=== PATIENT | female | born 1950 | race Caucasian/White ===

== ENCOUNTER 2023-11-09 09:57 | Observation (INO) ==
[2023-11-09] MEDS: SODIUM CHLORIDE 0.9% 500 ML IV ONE (10:22)
[2023-11-09] MEDS: ALBUT/IPRATROP 3MG/0.5MG NEB 3 ML VIAL NEB STA (10:30)
--- NOTE | 2023-11-09 10:30 | XRay Report ---
XR chest 1V portable CLINICAL HISTORY: dizzy, cough, vomiting TECHNIQUE: Single frontal radiograph of the chest was obtained. Comparison: None available at the time of this dictation. FINDINGS: No lines and tubes are seen. Calcified aortic knob is seen. The lungs are clear. No evidence of pleur al effusion or pneumothorax. IMPRESSION: No acute abnormalities and in particular no radiographic evidence of pneumonia. ACT 112: Negative or not required by law. Electronically signed by: Magan Doan M.D. 11/09/2023 10:29 AM
[2023-11-09] MEDS: MECLIZINE HCL 25 MG TAB PO STA (10:47)
--- NOTE | 2023-11-09 10:50 | Emergency Department Note ---
Impression & Plan Dizziness, Orthostatic hypotension, Nausea, Weakness ED Provider Note Provider: Hernan Phoenix MD DATE OF SERVICE: 11/09/2023 CHIEF COMPLAINT: Dizzy, nauseous, cough HISTORY OF PRESENT ILLNESS: Patient is a 73-year-old female history of diabetes, GERD, and COPD not on home oxygen presenting here today stating around 9 AM began to experience significant dizziness and nausea and dry heaves. Denies headache. Denies falling. Was just folding clothing and did not do any position changes or bend over. Denies significant chest pain. Some cough minimally productive. History of COPD. No new numbness or tingling reported with some chronic numbness in her arms related. Denies abdominal pain. Was well earlier today and yesterday. EMS did place her on a little bit oxygen for comfort and give her Zofran prior to arrival with minimal improvement. PAST MEDICAL HISTORY: As noted above MEDICATIONS: Reviewed home medications SOCIAL HISTORY: Smoker PHYSICAL EXAM: GENERAL: alert and oriented in no acute distress on stretcher Head: normocephalic and atraumatic EYES: No injection, discharge or icterus. EOMI. NECK: Trachea midline. ENT: Mucous membranes pink and moist. LUNGS: Airway patent. No retractions. Breath sounds clear with good air entry bilaterally. HEART: Regular rate and rhythm. No chest wall tenderness ABDOMEN: Soft and non-tender, without guarding or rebound. SKIN: Acyanotic, warm, dry, without rashes EXTREMITIES: Without swelling, tenderness or deformity NEUROLOGICAL: No focal deficits. No aphasia. No facial droop or slurred speech. Normal strength and tone in the extremities. Sensation to gross touch normal. Ambulatory. EK bpm sinus rhythm first-degree AV block. No PVC or PAC. No acute ST segment elevation or depression with a QTc of 426. CONTINUOUS CARDIAC MONITORING: was ordered and showed a heart rate of 60s to 80s bpm in sinus rhythm first-degree heart block Patient's laboratory studies and imaging reviewed. Differential includes Infection, gastrointestinal, dehydration, metabolic abnormality, hypo/hyperglycemia, electrolyte disturbance, anemia, hypoxia, cardiac sources, intracerebral event, toxicologic, neurologic, as well as other pathologies. IMPRESSION/MEDICAL DECISION MAKING: Patient with significant dizziness and nausea but no abdominal pain or significant headache. Cough. No new numbness or tingling. Not hypoxic here is a smoker. Denies any chest pain. EKG and troponin completed here. Chest x-ray without evidence of pneumonia or pneumothorax/pulmonary edema per radiology. Blood work without leukocytosis. Minimal anemia. No severe electrolyte abnormalities or signs of renal dysfunction. No hepatitis noted. Troponin normal. CT of the head without acute findings have a history of a tumor resection her right cheek seems consistent with the incidental note here from radiology. Abdominal CT without acute findings beyond some stenosis of the aorta and its branches but no occlusion. Made the patient aware. Patient quite unsteady and becomes orthostatic ambulating to the bathroom here. Did receive some IV fluid but no acute avoid fluid overload. Did take Antivert here without much improvement. Seems likely more peripheral and while the respiratory viral panel is negative question if this is viral mediated still. Will bring into the hospital given her significant symptoms and comorbidities with the orthostasis. Hospitalist team contacted. DIAGNOSIS: Dizziness, orthostatic hypotension, nausea DISPOSITION: Hospitalist will evaluate Patient was agreeable with this plan. Past Med/Surg History Medical History (Updated 11/09/23 @ 17:48 by Hernan Phoenix M.D.) Osteoarthritis Kidney stones Neuropathy mild Cardiac murmur has had Echo's in past > no issues Smoker Chronic obstructive pulmonary disease well controlled per pt > flare up in November 2021, but resolved, no issues since Sleep apnea cpap Hypertension Hyperlipidemia Anxiety GERD (gastroesophageal reflux disease) Diabetes Surgical History Hx of right cataract extraction History of total knee replacement right History of lithotripsy History of esophagogastroduodenoscopy (EGD) History of colonoscopy History of appendectomy History of tooth extraction also has loose front tooth Rhabdomyoma right cheek, 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 Family History Other No pertinent family history Social History (Updated 11/09/23 @ 15:10 by Noris Cantu PA-C) Smoking Status: Current every day smoker Tobacco Type: Cigarettes Cigarettes Per Day: 1/4 ppd; Second Hand Exposure: No; Do You Dip or Chew Tobacco: No; Hx Alcohol Use: No Hx Substance Use: No Preferred Language: Yakut Communication Ability: Effective Home Economics Expert Required: No Beliefs That Will Affect Care: None Current Living Situation: Parent and Family current occupational status: retired 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 Feels Safe at Home: Yes Assistive Devices: CPAP and Glasses Allergies Allergies Allergy/AdvReac Type Severity Reaction Status Date / Time Ibduuks-WAI-EtP Reductase AdvReac Unknown leg cramps Verified 04/08/22 08:32 Inhibitor [Fehdzre-Gcj-Cxs Reductase Inhibitor] Home Meds Home Medications Medication Instructions Recorded Confirmed alprazolam 0.25 mg tablet 0.25 mg PO TID PRN Anxiety 03/12/22 11/09/23 aspirin 81 mg tablet,delayed 81 mg PO HS 03/12/22 11/09/23 release atorvastatin 20 mg tablet 20 mg PO MOWEFR 03/12/22 11/09/23 ipratropium 0.5 mg-albuterol 3 mg 3 ml inhalation Q4H PRN Wheezing 03/12/22 11/09/23 (2.5 mg base)/3 mL nebulization soln lisinopril 10 1 tab PO HS 03/12/22 11/09/23 mg-hydrochlorothiazide 12.5 mg tablet pantoprazole 20 mg tablet,delayed 20 mg PO HS 03/12/22 11/09/23 release tramadol 50 mg tablet 50 mg PO Q6H PRN Pain 03/12/22 11/09/23 empagliflozin 10 mg tablet 10 mg PO DAILY 11/09/23 11/09/23 (Jardiance) tiotropium bromide 18 mcg capsule 18 mcg inhalation DAILY 11/09/23 11/09/23 with inhalation device Results & Data (ED) Vital Signs Vital Signs - 24 hr 11/09/23 10:04 11/09/23 10:05 11/09/23 10:20 Temperature 36.4 C L Temperature Source Oral Pulse Rate 68 66 65 Pulse Rate [Left Finger] Pulse Rhythm Regular Respiratory Rate 20 22 Respiratory Effort / Characteristics Non-Labored Spontaneous Respiratory Depth Normal Blood Pressure 118/49 L Blood Pressure [Left Arm] Blood Pressure Mean 72 Blood Pressure Mean [Left Arm] Blood Pressure Position Sitting Blood Pressure Position [Left Arm] Pulse Oximetry 94 95 Oxygen Delivery Method Room Air Room Air Sepsis Recent Fever Within 48 Hours No Sepsis New/Unexplained Change in Mental Status No Sepsis Action Taken by Nursing No Action Required 11/09/23 11:40 11/09/23 11:44 11/09/23 11:44 Temperature Temperature Source Pulse Rate Pulse Rate [Left Finger] 80 Pulse Rhythm Respiratory Rate 20 Respiratory Effort / Characteristics Respiratory Depth Blood Pressure Blood Pressure [Left Arm] 68/42 L 80/50 L 107/63 Blood Pressure Mean Blood Pressure Mean [Left Arm] 50 60 77 Blood Pressure Position Blood Pressure Position [Left Arm] Standing Sitting Lying Pulse Oximetry 95 Oxygen Delivery Method Room Air Sepsis Recent Fever Within 48 Hours Sepsis New/Unexplained Change in Mental Status Sepsis Action Taken by Nursing 11/09/23 12:00 11/09/23 12:48 Temperature Temperature Source Pulse Rate 77 Pulse Rate [Left Finger] 83 Pulse Rhythm Respiratory Rate 15 20 Respiratory Effort / Characteristics Respiratory Depth Blood Pressure 92/35 L Blood Pressure [Left Arm] 123/43 L Blood Pressure Mean 54 Blood Pressure Mean [Left Arm] 69 Blood Pressure Position Blood Pressure Position [Left Arm] Lying Pulse Oximetry 93 96 Oxygen Delivery Method Sepsis Recent Fever Within 48 Hours Sepsis New/Unexplained Change in Mental Status Sepsis Action Taken by Nursing Laboratory Data 11/09/23 10:14 11/09/23 10:14 Lab Results 11/09/23 11/09/23 11/09/23 Range/Units 10:14 10:30 11:45 WBC 10.43 (4.8-10.8) K/ul RBC 3.97 L (4.20-5.40) M/uL Hgb 11.9 L (12.0-16.0) g/dl Hct 37.8 (37.0-47.0) % MCV 95.2 (80.0-100.0) fL MCH 30.0 (25.0-34.0) pg MCHC 31.5 L (32.0-36.0) g/dL RDW Std Deviation 49.4 H (36.4-46.3) fL RDW Coeff of Trevor 14.0 (11.5-14.5) % Plt Count 307 (130-400) K/uL MPV 9.0 L (9.4-12.4) fL Immature Gran % (Auto) 0.9 % Neut % (Auto) 63.2 % Lymph % (Auto) 26.1 % [place] % (Auto) 5.8 % Eos % (Auto) 3.4 % Baso % (Auto) 0.6 % Neut # (Auto) 6.60 H (1.40-6.50) K/uL Lymph # (Auto) 2.72 (1.20-3.40) K/uL [place] # (Auto) 0.61 H (0.11-0.59) K/uL Eos # (Auto) 0.35 (0.00-0.50) K/uL Baso # (Auto) 0.06 (0.00-0.20) K/uL Immature Gran # (Auto) 0.09 (0.01-0.20) K/uL Sodium 135 L (136-145) mmol/L Potassium 4.5 (3.5-5.1) mmol/L Chloride 106 (98-107) mmol/L Carbon Dioxide 23 (21-32) mmol/L Anion Gap 6 (3-11) BUN 38 H (6-23) mg/dl Creatinine 1.11 (0.6-1.2) mg/dl Est Cr Clr Drug Dosing 57.3 ml/min Est GFR ( Amer) 56.3 ml/min Est GFR (Non-Af Amer) 48.5 ml/min BUN/Creatinine Ratio 34.2 H (10-20) Glucose 162 H (70-99(Fasting)) mg/dl Calcium 9.3 (8.6-10.3) mg/dl Magnesium 2.3 (1.7-2.4) mg/dl Total Bilirubin 0.3 (0.2-1.0) mg/dl AST 12 L (13-39) U/L ALT 12 (7-52) U/L Alkaline Phosphatase 78 (34-104) U/L Troponin I High Sens 4.1 (0-14) pg/ml Total Protein 6.5 (6.0-8.3) gm/dl Albumin 3.6 (3.4-5.0) gm/dl Globulin 2.9 (2.5-4.0) gm/dl Albumin/Globulin Ratio 1.2 (0.9-2) TSH 1.955 (0.300-4.500) uIu/ml Urine Color Yellow Urine Appearance Clear (Clear) Urine pH 5.0 (4.5-7.5) Ur Specific Ceres 1.017 (1.000-1.030) Urine Protein Negative (Negative) Urine Glucose (UA) 2+ H (Negative) Urine Ketones Negative (Negative) Urine Blood Negative (Negative) Urine Nitrite Negative (Negative) Urine Bilirubin Negative (Negative) Urine Urobilinogen Negative (Negative) Ur Leukocyte Esterase Negative (Negative) Adenovirus (PCR) Not Detected (NotDetected) B. pertussis DNA (PCR) Not Detected (NotDetected) B.parapertussis DNA PCR Not Detected (NotDetected) C. pneumoniae DNA (PCR) Not Detected (NotDetected) Coronavirus OC43 (PCR) Not Detected (NotDetected) Coronavirus HKU1 (PCR) Not Detected (NotDetected) Coronavirus 229E (PCR) Not Detected (NotDetected) SARS-CoV-2 (PCR) Not Detected (NotDetected) Coronavirus NL63 (PCR) Not Detected (NotDetected) Human Metapneumovir PCR Not Detected (NotDetected) Influenza Type A (PCR) Not Detected (NotDetected) Influenza Type B (PCR) Not Detected (NotDetected) M. pneumoniae (PCR) Not Detected (NotDetected) Parainfluenza 1 (PCR) Not Detected (NotDetected) Parainfluenza 2 (PCR) Not Detected (NotDetected) Parainfluenza 3 (PCR) Not Detected (NotDetected) Parainfluenza 4 (PCR) Not Detected (NotDetected) RSV (PCR) Not Detected (NotDetected) Entero/Rhino (PCR) Not Detected (NotDetected) Administered Medications Discontinued Medications Albuterol (Albut/Ipratrop 3mg/0.5mg Neb 3 Ml Vial) 3 ml NEB NOW STA; Protocol Stop: 11/09/23 10:09 Last Admin: 11/09/23 10:30 Dose: 3 ml Documented By: MONICA Sodium Chloride (Nss) 500 mls @ 999 mls/hr IV .Q31M ONE Stop: 11/09/23 10:38 Last Infusion: 11/09/23 12:24 Dose: Infused Documented By: Admin: 11/09/23 10:22 Dose: 999 mls/hr Documented By: MONICA Ioversol (Optiray 320 500ml) 81 ml IV ONCE ONE Stop: 11/09/23 11:31 Last Admin: 11/09/23 11:24 Dose: 81 ml Documented By: FIDELINA Meclizine HCl (Meclizine Hcl 25 Mg Tab) 25 mg PO NOW STA Stop: 11/09/23 10:09 Last Admin: 11/09/23 10:47 Dose: 25 mg Documented By: MONICA Imaging Data Radiologist's Impression: Abdomen/Pelvis CT 11/09/23 10:[address] WITH IV CONTRAST CT DOSE: 2179.21 mGy.cm HISTORY: Acute generalized abdominal pain with nausea and vomiting dizzy, cough, vomiting TECHNIQUE: Multiaxial CT images of the abdomen and pelvis were performed following the IV administration of Optiray, A dose lowering technique was utilized adhering to the principles of ALARA. COMPARISON STUDY: 04/19/2016 FINDINGS: Cardiomegaly with extensive coronary artery calcifications. Bibasilar mucous plugging with atelectasis versus scarring. Small right Bochdalek hernia. There is no free air. Unremarkable spleen, pancreas, gallbladder and adrenal glands. Unremarkable liver. Patency of the hepatic and portal veins. Mild nonspecific bilateral perinephric stranding. Subcentimeter hypodensities of the kidneys are too small to characterize, likely cysts. 2.5 cm cyst of the inferior pole left kidney. 6 mm calcification of the superior pole left kidney in image 129. 3 mm nonobstructing calculus at the interpolar right kidney. No ureteral calculi or hydronephrosis. Unremarkable urinary bladder, uterus and adnexa. Severe atherosclerosis of the aorta with high-grade stenosis at the origin of the celiac trunk and proximal superior mesenteric artery. There is a least moderate stenosis at the origin of the inferior mesenteric and renal arteries. Infrarenal abdominal aortic ectasia measures up to 3.2 x 2.8 cm. There is high-grade stenosis within the distal abdominal aorta just proximal to the iliac bifurcation. Fusiform dilation of the left common iliac artery, 2.5 cm. There is no lymphadenopathy identified. Subcentimeter duodenal diverticulum. Colonic diverticulosis. Mural fibrofatty changes of the right hemicolon. Appendectomy. No ascites or mesenteric inflammation. Unremarkable soft tissues. There is no acute fracture. Degenerative changes of the spine, pelvis and hips. IMPRESSION: 1. No bowel obstruction or bowel wall thickening. 2. Bibasilar mucous plugging with opacities favoring atelectasis or scarring. 3. Nonobstructing renal calculi. No ureteral calculi or hydronephrosis. 4. Severe atherosclerosis with fusiform aneurysmal dilation of the infrarenal abdominal aorta measuring up to 3.2 cm. Dilation of the left common iliac artery measures 2.5 cm. 5. High-grade stenosis of the distal abdominal aorta just proximal to the bifurcation with additional high-grade stenosis at the origins of the celiac trunk and superior mesenteric artery. 6. Additional findings as above. ACT 112: Negative or not required by law. The above report was generated using voice recognition software. It may contain grammatical, syntax or spelling errors. Electronically signed by: Romero Gonzalez M.D. 11/09/2023 12:00 PM Chest X-Ray 11/09/23 10:08 XR chest 1V portable CLINICAL HISTORY: dizzy, cough, vomiting TECHNIQUE: Single frontal radiograph of the chest was obtained. Comparison: None available at the time of this dictation. FINDINGS: No lines and tubes are seen. Calcified aortic knob is seen. The lungs are clear. No evidence of pleural effusion or pneumothorax. IMPRESSION: No acute abnormalities and in particular no radiographic evidence of pneumonia. ACT 112: Negative or not required by law. Electronically signed by: Magan Doan M.D. 11/09/2023 10:[address] 11/09/23 10:09 CT head/brain wo con CLINICAL HISTORY: 73 years-old Female with dizzy, cough, vomiting. Acute dizziness with cough and vomiting TECHNIQUE: Multiple axial CT images of the head were obtained without contrast. A dose lowering technique was utilized adhering to the principles of ALARA. COMPARISON: None. FINDINGS: No acute intracranial hemorrhage, midline shift, intracranial mass, territorial ischemia or abnormal extra-axial collection. Involutional changes with mild white matter hypodensities favoring chronic microvascular ischemic disease. Mild ventriculomegaly likely on ex vacuo basis. The calvarium is intact. There are 2 partially imaged soft tissue attenuating foci within the right lateral cheek, the more anterior partially imaged focus measures 2.5 cm on image 1 series 3 and a lesion involving the superficial right parotid gland on image 3 series 3 measures 1.8 cm. The paranasal sinuses, mastoid air cells, and middle ear cavities are clear. IMPRESSION: 1. No acute intracranial abnormality. 2. Partially imaged soft tissue attenuating foci within the right cheek. Correlation with nonemergent follow-up ultrasound recommended on an outpatient basis. ACT 112: Negative or not required by law. The above report was generated using voice recognition software. It may contain grammatical, syntax or spelling errors. Electronically signed by: Romero Gonzalez M.D. 11/09/2023 11:51 AM Discharge Plan Visit Data Chief Complaint: Illness ED Provider: Hernan Phoenix Discharge Problem: Dizziness, Orthostatic hypotension, Nausea, Weakness Patient Disposition: Being Evaluated by Hospitalist Discharge Instructions Interventions: ED Discharge Assessment Last Done: 11/09/23 17:29
[2023-11-09 10:55] LABS: Basophils # (auto) 0.06 K/uL (0.00-0.20); Basophils % (auto) 0.6 %; Eosinophils # (auto) 0.35 K/uL (0.00-0.50); Eosinophils % (auto) 3.4 %; Hematocrit (blood only) 37.8 % (37.0-47.0); Hemoglobin 11.9 g/dl (12.0-16.0); Immature Granulocytes # (auto) 0.09 K/uL (0.01-0.20); Immature Granulocytes % (auto) 0.9 %; Lymphocytes # (auto) 2.72 K/uL (1.20-3.40); Lymphocytes % (auto) 26.1 %; Mean Corpuscular Hgb Conc 31.5 g/dL (32.0-36.0); Mean Corpuscular Volume 95.2 fL (80.0-100.0); Monocytes # (auto) 0.61 K/uL (0.11-0.59); Monocytes % (auto) 5.8 %; Neutrophils % (auto) 63.2 %; Platelet Count 307 K/uL (130-400); RDW Standard Deviation 49.4 fL (36.4-46.3); Red Blood Count 3.97 M/uL (4.20-5.40); White Blood Count 10.43 K/ul (4.8-10.8)
[2023-11-09 11:16] LABS: Albumin Globulin Ratio 1.2 (0.9-2); Albumin Level 3.6 gm/dl (3.4-5.0); BUN Creatinine Ratio 34.2 (10-20); Bilirubin,Total 0.3 mg/dl (0.2-1.0); Calcium 9.3 mg/dl (8.6-10.3); Creatinine Clr Calc Pharmacy 57.3 ml/min; Est GFR (African American) 56.3 ml/min; Est GFR (Non-African American) 48.5 ml/min; Globulin 2.9 gm/dl (2.5-4.0); Magnesium 2.3 mg/dl (1.7-2.4); Potassium 4.5 mmol/L (3.5-5.1); Total Protein 6.5 gm/dl (6.0-8.3)
[2023-11-09 11:20] LABS: Troponin I High Sensitivity 4.1 pg/ml (0-14)
[2023-11-09] MEDS: OPTIRAY 320 500ml IV ONE (11:24)
[2023-11-09 11:30] LABS: Thyroid Stimulating Hormone 1.955 uIu/ml (0.300-4.500)
--- NOTE | 2023-11-09 11:37 | Electrocardiogram Report ---
Test Reason : Blood Pressure : / mmHG Vent. Rate : 067 BPM Atrial Rate : 067 BPM P-R Int : 236 ms QRS Dur : 082 ms QT Int : 404 ms P-R-T Axes : 064 -11 049 degrees QTc Int : 426 ms Sinus rhythm with 1st degree A-V block Low voltage QRS Borderline ECG When compared with ECG of 19-APR-2016 02:09, RI interval has increased Confirmed by Juwan Owens ([id number]) on 11/09/2023 11:36:40 AM Referred By: REFERRED SELF Confirmed By:Juwan Owens
[2023-11-09 11:53] LABS: Adenovirus PCR Not Detected (NotDetected); Bordetella parapertussis PCR Not Detected (NotDetected); Bordetella pertussis PCR Not Detected (NotDetected); Chlamydia pneumoniae PCR Not Detected (NotDetected); Coronavirus 229E PCR Not Detected (NotDetected); Coronavirus CoV-2 (COVID19)PCR Not Detected (NotDetected); Coronavirus HKU1 PCR Not Detected (NotDetected); Coronavirus NL63 PCR Not Detected (NotDetected); Coronavirus OC43PCR Not Detected (NotDetected); Human Metapneumovirus PCR Not Detected (NotDetected); Influenza A PCR Not Detected (NotDetected); Influenza B PCR Not Detected (NotDetected); Mycoplasma pneumoniae PCR Not Detected (NotDetected); Parainfluenza Virus 1 PCR Not Detected (NotDetected); Parainfluenza Virus 2 PCR Not Detected (NotDetected); Parainfluenza Virus 3 PCR Not Detected (NotDetected); Parainfluenza Virus 4 PCR Not Detected (NotDetected); Respiratory Syncytial VirusPCR Not Detected (NotDetected); Rhinovirus/Enterovirus PCR Not Detected (NotDetected)
--- NOTE | 2023-11-09 11:53 | CT Scan Report ---
CT head/brain wo con CLINICAL HISTORY: 73 years-old Female with dizzy, cough, vomiting. Acute dizziness with cough and vo miting TECHNIQUE: Multiple axial CT images of the head were obtained without contrast. A dose lowering tech nique was utilized adhering to the principles of ALARA. COMPARISON: None. FINDINGS: No acute intracranial hemorrhage, midline shift, intracranial mass, territorial ischemia or abnormal extra-axial collection. Involutional changes with mild white matter hypodensities favoring chronic mi crovascular ischemic disease. Mild ventriculomegaly likely on ex vacuo basis. The calvarium is intact. There are 2 partially imaged soft tissue attenuating foci within the right l ateral cheek, the more anterior partially imaged focus measures 2.5 cm on image 1 series 3 and a lesi on involving the superficial right parotid gland on image 3 series 3 measures 1.8 cm. The paranasal s inuses, mastoid air cells, and middle ear cavities are clear. IMPRESSION: 1. No acute intracranial abnormality. 2. Partially imaged soft tissue attenuating foci within the right cheek. Correlation with nonemergent follow-up ultrasound recommended on an outpatient basis. ACT 112: Negative or not required by law. The above report was generated using voice recognition software. It may contain grammatical, syntax o r spelling errors. Electronically signed by: Romero Gonzalez M.D. 11/09/2023 11:51 AM
[2023-11-09 11:58] LABS: Appearance Urine Clear (Clear); Bilirubin Urine Negative (Negative); Blood Urine Negative (Negative); Color Urine Yellow; Glucose Urine UA 2+ (Negative); Ketones Urine Negative (Negative); Leukocyte Esterase Urine Negative (Negative); Nitrite Urine Negative (Negative); Protein Urine Negative (Negative); Specific Gravity Urine 1.017 (1.000-1.030); Urobilinogen Urine Negative (Negative)
--- NOTE | 2023-11-09 12:02 | CT Scan Report ---
ABDOMEN AND PELVIS CT WITH IV CONTRAST CT DOSE: 2179.21 mGy.cm HISTORY: Acute generalized abdominal pain with nausea and vomiting dizzy, cough, vomiting TECHNIQUE: Multiaxial CT images of the abdomen and pelvis were performed following the IV administrat ion of Optiray, A dose lowering technique was utilized adhering to the principles of ALARA. COMPARISON STUDY: 04/19/2016 FINDINGS: Cardiomegaly with extensive coronary artery calcifications. Bibasilar mucous plugging with atelectasis versus scarring. Small right Bochdalek hernia. There is no free air. Unremarkable spleen, pancreas, gallbladder and adrenal glands. Unremarkable liver. Patency of the hepatic and portal vein s. Mild nonspecific bilateral perinephric stranding. Subcentimeter hypodensities of the kidneys are too small to characterize, likely cysts. 2.5 cm cyst of the inferior pole left kidney. 6 mm calcification of the superior pole left kidney in image 129. 3 mm nonobstructing calculus at the interpolar right kidney. No ureteral calculi or hydronephrosis. Unremarkable urinary bladder, uterus and adnexa. Sever e atherosclerosis of the aorta with high-grade stenosis at the origin of the celiac trunk and proxima l superior mesenteric artery. There is a least moderate stenosis at the origin of the inferior mesent ike and renal arteries. Infrarenal abdominal aortic ectasia measures up to 3.2 x 2.8 cm. There is hi gh-grade stenosis within the distal abdominal aorta just proximal to the iliac bifurcation. Fusiform dilation of the left common iliac artery, 2.5 cm. There is no lymphadenopathy identified. Subcentimeter duodenal diverticulum. Colonic diverticulosis. Mural fibrofatty changes of the right he micolon. Appendectomy. No ascites or mesenteric inflammation. Unremarkable soft tissues. There is no acute fracture. Degenerative changes of the spine, pelvis and hips. IMPRESSION: 1. No bowel obstruction or bowel wall thickening. 2. Bibasilar mucous plugging with opacities favoring atelectasis or scarring. 3. Nonobstructing renal calculi. No ureteral calculi or hydronephrosis. 4. Severe atherosclerosis with fusiform aneurysmal dilation of the infrarenal abdominal aorta measuri ng up to 3.2 cm. Dilation of the left common iliac artery measures 2.5 cm. 5. High-grade stenosis of the distal abdominal aorta just proximal to the bifurcation with additional high-grade stenosis at the origins of the celiac trunk and superior mesenteric artery. 6. Additional findings as above. ACT 112: Negative or not required by law. The above report was generated using voice recognition software. It may contain grammatical, syntax o r spelling errors. Electronically signed by: Romero Gonzalez M.D. 11/09/2023 12:00 PM
--- NOTE | 2023-11-09 14:13 | History & Physical Report ---
Date of Service November 09, 2023 Assessment & Plan (1) Orthostatic hypotension: (2) Labyrinthitis: (3) Stenosis of abdominal aorta: (4) Abdominal aneurysm: (5) Morbid obesity with BMI of 40.0-44.9, adult: (6) Diabetes: (7) Hyperlipidemia: (8) Chronic obstructive pulmonary disease: Plan This is a 73-year-old female who has a significant past medical history of T2DM with diabetic peripheral angiopathy, COPD, HTN, HLD, JACE on CPAP, morbid obesity, CKD stage III, tobacco use disorder and anxiety who presents to ED secondary to weakness and dizziness x 1 day. Dizziness Orthostatic hypotension admit to med tele pt presents w acute onset dizziness, nausea and diaphoresis she had positive orthostatics in ED will continue gentle IVF for additional 1 L orthostatics BID hold outpatient lisinopril/HCTZ - may need to consider alternative agent due to orthostasis and recent ROGER as OP will further w/u dizziness with echocardiogram, carotid US and tele monitoring pt would benefit from ZIO patch as outpatient also concern for labyrinthitis which will be discussed below discussed with pt regarding stroke r/o given dizziness and hx of diabetes, she currently is refusing MRI due to claustrophobia despite anxiolytic Pt agreeable to repeat Head CT in a.m. Possible Labyrinthitis recent URI as outpt meclizine prn PT CKD-3 baseline cr 1.1 cr at baseline but pt with elevated BUN likely some underlying dehydration in conjunction with orthostasis Stenosis of Aorta Infrarenal abdominal aortic aneurysm --CT abd/pt: . No bowel obstruction or bowel wall thickening.2. Bibasilar mucous plugging with opacities favoring atelectasis or scarring.3. Nonobstructing renal calculi. No ureteral calculi or hydronephrosis.4. Severe atherosclerosis with fusiform aneurysmal dilation of the infrarenal abdominal aorta measuring up to 3.2 cm. Dilation of the left common iliac artery measures 2.5 cm.5. High-grade stenosis of the distal abdominal aorta just proximal to the bifurcation with additional high-grade stenosis at the origins of the celiac trunk and superior mesenteric artery.6. Additional findings as above. pt states mother/father both had AAA will consult vascular for further recs regarding abd CT a/p findings she is currently on asa/statin COPD no acute exac continue spiriva, prn nebs CT suggestive of bibasilar mucous plugging will encourage spirometry and flutter valve no indication for antibiotics at this time pt recently completed course of azithromycin 1.5 weeks ago T2DM hold jardiance, a1c 6.4 10/2023 lantus/novolog per protocol HTN chronic, stable hold lisinopril/hctz due to orthostasis consider alternative agent at d/c HLD chronic, stable continue thrice weekly statin therapy JACE cpap at HS Tobacco abuse encourage cessation, nicotine patch declined Morbid obesity, BMI 42.1 diet, lifestyle modifications encourage DVT ppx: SQ Lovenox Dispo: med tele FULL CODE PCP: Esther Pt was seen and examined in collaboration with Dr. Stratton, please see addendum A total of 81 was spent coordinating, documenting, and providing care for this patient excluding time spent in the performance of separately billed services. This included personally viewing all current laboratories and imaging studies, medication reconciliation, outpatient chart review, and discussion with specialists. History of Present Illness Chief Complaint: Acute onset of dizziness and nausea prior to arrival. Primary Care Provider: Dari Santana DO This is a 73-year-old female who has a significant past medical history of T2DM with diabetic peripheral angiopathy, COPD, HTN, HLD, JACE on CPAP, morbid obesity, CKD stage III, tobacco use disorder and anxiety who presents to ED secondary to weakness and dizziness x 1 day. She states she was sitting at the kitchen table whenever she acutely developed nausea and dizziness, "the room was spinning." She has never had anything like this before. She states she tried to stand up but do if she stood up further she might pass out and therefore she sat down. She got very diaphoretic. She took her blood sugar and it was in the 120s. She did not take her blood pressure. She was very nauseated and did experience dry heaves. She states her symptoms be exacerbated with quick head movements or position change. She denies any associated chest pain, palpitations or shortness of breath. She states approximately 1-1/2 weeks ago she completed a azithromycin/prednisone rescue kit secondary to COPD exacerbation and upper respiratory infection. She otherwise denies any acute illness and has otherwise been feeling quite well. She denies any sick contacts. She has been eating and drinking well. She continues to smoke half a pack a day. She has been compliant with her medications. She denies any fever, chills, sweats, chest pain, shortness of breath, hemoptysis, abdominal pain, change in bowel or urinary habits. In ED patient remained hemodynamically stable. She did have positive orthostatic blood pressures with her blood pressu re being 107 systolic while lying in dropping to 68/42 while standing. She did receive 1 L of IV fluids. She also received meclizine which feels alleviated her symptoms. She did recently get started on new medication Jardiance. Her metformin was discontinued due to slight elevation in her creatinine. Her most recent A1c was 6.4. In ED after receiving Zofran, fluids and meclizine her symptoms have improved and she no longer has symptoms with head movements. Allergies Allergy/AdvReac Type Severity Reaction Status Date / Time Ydzcsod-USH-RwP Reductase AdvReac Unknown leg cramps Verified 04/08/22 08:32 Inhibitor [Ljkdmic-Fqx-Pwv Reductase Inhibitor] Home Medications Medication Instructions Recorded Confirmed Type alprazolam 0.25 mg tablet 0.25 mg PO TID PRN Anxiety 03/12/22 11/09/23 History aspirin 81 mg tablet,delayed 81 mg PO HS 03/12/22 11/09/23 History release atorvastatin 20 mg tablet 20 mg PO MOWEFR 03/12/22 11/09/23 History ipratropium 0.5 mg-albuterol 3 mg 3 ml inhalation Q4H PRN Wheezing 03/12/22 11/09/23 History (2.5 mg base)/3 mL nebulization soln lisinopril 10 1 tab PO HS 03/12/22 11/09/23 History mg-hydrochlorothiazide 12.5 mg tablet pantoprazole 20 mg tablet,delayed 20 mg PO HS 03/12/22 11/09/23 History release tramadol 50 mg tablet 50 mg PO Q6H PRN Pain 03/12/22 11/09/23 History empagliflozin 10 mg tablet 10 mg PO DAILY 11/09/23 11/09/23 History (Jardiance) tiotropium bromide 18 mcg capsule 18 mcg inhalation DAILY 11/09/23 11/09/23 History with inhalation device Past Med/Surg History Medical History Osteoarthritis Kidney stones Neuropathy mild Cardiac murmur has had Echo's in past > no issues Smoker Chronic obstructive pulmonary disease well controlled per pt > flare up in November 2021, but resolved, no issues since Sleep apnea cpap Hypertension Hyperlipidemia Anxiety GERD (gastroesophageal reflux disease) Diabetes Surgical History Hx of right cataract extraction History of total knee replacement right History of lithotripsy History of esophagogastroduodenoscopy (EGD) History of colonoscopy History of appendectomy History of tooth extraction also has loose front tooth Rhabdomyoma right cheek, 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 Family History Other No pertinent family history Social History Smoking Status: Current every day smoker Tobacco Type: Cigarettes Cigarettes Per Day: 1/4 ppd; Second Hand Exposure: No; Do You Dip or Chew Tobacco: No; Hx Alcohol Use: No Hx Substance Use: No Preferred Language: Lebanese Communication Ability: Effective [employer] Required: No Beliefs That Will Affect Care: None Current Living Situation: Spouse and Family current occupational status: retired 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 Feels Safe at Home: Yes Assistive Devices: CPAP Review of Systems Review of Systems: All systems reviewed & are unremarkable except as noted in HPI & below Physical Exam Physical Exam: Constitutional: WD/WN, morbidly obese, F, vitals as above, NAD, sitting up in bed, pleasant, conversing easily Head: Normocephalic, Atraumatic Eyes: PERRL, conjunctivae normal, anicteric sclerae , no nystagmus ENMT: external ear and nose normal, IAC clear no cerumen, R TM white good landmarks, L serous otitis, no erythema, oropharynx normal Neck: trachea midline, no thyromegaly normal visual inspection Respiratory: normal respiratory effort, lungs clear to auscultation, faint exp wheeze, no rales, rhonchi. Normal insp/exp effort, no accessory muscle use Cardiovascular: RRR, no murmur, trace lower ext edema Vessels: no JVD or carotid bruit Chest: normal inspection of chest Abdomen: normal bowel sounds, soft, nontender, no hepatosplenomegaly Musculoskeletal: no cyanosis or clubbing, extremities motor strength 5/5 Skin: no rashes, warm and dry normal turgor Neurologic: PERRL, EOMI, accommodation nl, no face palsy, no dysarthria CN's II-XI intact bilaterally and moves all extremities , dizziness exac with going from lying to sitting, but did not exac with quick head movements Psychiatric: A+Ox3, euthymic affect Lymphatic: no cervical or axillary lymphadenopathy : deferred Results & Data Results & Data Vital Signs (Past 12 Hours) Vital Signs Temp Pulse Pulse Resp BP BP Pulse Ox 11/09/23 12:48 83 20 123/43 L 96 11/09/23 12:00 77 15 92/35 L 93 11/09/23 11:44 107/63 11/09/23 11:44 80 20 80/50 L 95 11/09/23 11:40 68/42 L 11/09/23 10:20 65 22 95 11/09/23 10:05 36.4 C L 66 20 118/49 L 94 11/09/23 10:04 68 O2 Del Method 11/09/23 12:48 11/09/23 12:00 11/09/23 11:44 11/09/23 11:44 Room Air 11/09/23 11:40 11/09/23 10:20 Room Air 11/09/23 10:05 Room Air 11/09/23 10:04 Diagnostic Findings Abdomen/Pelvis CT 11/09/23 10:[address] WITH IV CONTRAST CT DOSE: 2179.21 mGy.cm HISTORY: Acute generalized abdominal pain with nausea and vomiting dizzy, cough, vomiting TECHNIQUE: Multiaxial CT images of the abdomen and pelvis were performed following the IV administration of Optiray, A dose lowering technique was utilized adhering to the principles of ALARA. COMPARISON STUDY: 04/19/2016 FINDINGS: Cardiomegaly with extensive coronary artery calcifications. Bibasilar mucous plugging with atelectasis versus scarring. Small right Bochdalek hernia. There is no free air. Unremarkable spleen, pancreas, gallbladder and adrenal glands. Unremarkable liver. Patency of the hepatic and portal veins. Mild nonspecific bilateral perinephric stranding. Subcentimeter hypodensities of the kidneys are too small to characterize, likely cysts. 2.5 cm cyst of the inferior pole left kidney. 6 mm calcification of the superior pole left kidney in image 129. 3 mm nonobstructing calculus at the interpolar right kidney. No ureteral calculi or hydronephrosis. Unremarkable urinary bladder, uterus and adnexa. Severe atherosclerosis of the aorta with high-grade stenosis at the origin of the celiac trunk and proximal superior mesenteric artery. There is a least moderate stenosis at the origin of the inferior mesenteric and renal arteries. Infrarenal abdominal aortic ectasia measures up to 3.2 x 2.8 cm. There is high-grade stenosis within the distal abdominal aorta just proximal to the iliac bifurcation. Fusiform dilation of the left common iliac artery, 2.5 cm. There is no lymphadenopathy identified. Subcentimeter duodenal diverticulum. Colonic diverticulosis. Mural fibrofatty changes of the right hemicolon. Appendectomy. No ascites or mesenteric inflammation. Unremarkable soft tissues. There is no acute fracture. Degenerative changes of the spine, pelvis and hips. IMPRESSION: 1. No bowel obstruction or bowel wall thickening. 2. Bibasilar mucous plugging with opacities favoring atelectasis or scarring. 3. Nonobstructing renal calculi. No ureteral calculi or hydronephrosis. 4. Severe atherosclerosis with fusiform aneurysmal dilation of the infrarenal abdominal aorta measuring up to 3.2 cm. Dilation of the left common iliac artery measures 2.5 cm. 5. High-grade stenosis of the distal abdominal aorta just proximal to the bifurcation with additional high-grade stenosis at the origins of the celiac trunk and superior mesenteric artery. 6. Additional findings as above. ACT 112: Negative or not required by law. The above report was generated using voice recognition software. It may contain grammatical, syntax or spelling errors. Electronically signed by: Romero Gonzalez M.D. 11/09/2023 12:00 PM Chest X-Ray 11/09/23 10:08 XR chest 1V portable CLINICAL HISTORY: dizzy, cough, vomiting TECHNIQUE: Single frontal radiograph of the chest was obtained. Comparison: None available at the time of this dictation. FINDINGS: No lines and tubes are seen. Calcified aortic knob is seen. The lungs are clear. No evidence of pleural effusion or pneumothorax. IMPRESSION: No acute abnormalities and in particular no radiographic evidence of pneumonia. ACT 112: Negative or not required by law. Electronically signed by: Magan Doan M.D. 11/09/2023 10:[address] 11/09/23 10:09 CT head/brain wo con CLINICAL HISTORY: 73 years-old Female with dizzy, cough, vomiting. Acute dizziness with cough and vomiting TECHNIQUE: Multiple axial CT images of the head were obtained without contrast. A dose lowering technique was utilized adhering to the principles of ALARA. COMPARISON: None. FINDINGS: No acute intracranial hemorrhage, midline shift, intracranial mass, territorial ischemia or abnormal extra-axial collection. Involutional changes with mild white matter hypodensities favoring chronic microvascular ischemic disease. Mild ventriculomegaly likely on ex vacuo basis. The calvarium is intact. There are 2 partially imaged soft tissue attenuating foci within the right lateral cheek, the more anterior partially imaged focus measures 2.5 cm on image 1 series 3 and a lesion involving the superficial right parotid gland on image 3 series 3 measures 1.8 cm. The paranasal sinuses, mastoid air cells, and middle ear cavities are clear. IMPRESSION: 1. No acute intracranial abnormality. 2. Partially imaged soft tissue attenuating foci within the right cheek. Correlation with nonemergent follow-up ultrasound recommended on an outpatient basis. ACT 112: Negative or not required by law. The above report was generated using voice recognition software. It may contain grammatical, syntax or spelling errors. Electronically signed by: Romero Gonzalez M.D. 11/09/2023 11:51 AM Medications Administered Medication List Discontinued Medications Albuterol (Albut/Ipratrop 3mg/0.5mg Neb 3 Ml Vial) 3 ml NEB NOW STA; Protocol Stop: 11/09/23 10:09 Last Admin: 11/09/23 10:30 Dose: 3 ml Documented By: MONICA Sodium Chloride (Nss) 500 mls @ 999 mls/hr IV .Q31M ONE Stop: 11/09/23 10:38 Last Infusion: 11/09/23 12:24 Dose: Infused Documented By: Admin: 11/09/23 10:22 Dose: 999 mls/hr Documented By: MONICA Ioversol (Optiray 320 500ml) 81 ml IV ONCE ONE Stop: 11/09/23 11:31 Last Admin: 11/09/23 11:24 Dose: 81 ml Documented By: BRM Meclizine HCl (Meclizine Hcl 25 Mg Tab) 25 mg PO NOW STA Stop: 11/09/23 10:09 Last Admin: 11/09/23 10:47 Dose: 25 mg Documented By: MONICA ECG Additional Comments: I have independently reviewed and interpreted patient's admitting EKG which revealed: NSR 1st degree AVB, qtc 426ms COVID-19 Results Results COVID-19 Adm Lab Results: RBC 3.65 M/uL (4.20-5.40) L 11/11/23 WBC 7.32 K/ul (4.8-10.8) 11/11/23 Hgb 11.2 g/dl (12.0-16.0) L 11/11/23 Hct 34.6 % (37.0-47.0) L 11/11/23 Plt Count 249 K/uL (130-400) 11/11/23 Neutrophils (%) (Auto) 51.2 % 11/10/23 Lymphocytes (%) (Auto) 37.9 % 11/10/23 Monocytes # (Auto) 0.58 K/uL (0.11-0.59) 11/10/23 Eosinophils # (Auto) 0.26 K/uL (0.00-0.50) 11/10/23 Immature Granulocyte % (Auto) 0.2 % 11/10/23 Neutrophils # (Auto) 4.15 K/uL (1.40-6.50) 11/10/23 Lymphocytes # (Auto) 3.08 K/uL (1.20-3.40) 11/10/23 Monocytes # (Auto) 0.58 K/uL (0.11-0.59) 11/10/23 Eosinophils # (Auto) 0.26 K/uL (0.00-0.50) 11/10/23 Basophils # (Auto) 0.03 K/uL (0.00-0.20) 11/10/23 Immature Granulocyte # (Auto) 0.02 K/uL (0.01-0.20) 4 Na 138 mmol/L (136-145) 11/11/23 K 4.4 mmol/L (3.5-5.1) 11/11/23 Cl 108 mmol/L (98-107) H 11/11/23 CO2 26 mmol/L (21-32) 11/11/23 Anion Gap 4 (3-11) 11/11/23 BUN 27 mg/dl (6-23) H 11/11/23 Creatinine 1.04 mg/dl (0.6-1.2) 11/11/23 BUN/Creatinine Ratio 26.0 (10-20) H 11/11/23 Glucose Level 95 mg/dl (70-99(Fasting)) 11/11/23 Ca 8.9 mg/dl (8.6-10.3) 11/11/23 Phosphorus Level 3.3 mg/dl (2.5-4.9) 11/11/23 Total Bilirubin 0.4 mg/dl (0.2-1.0) 11/11/23 AST/SGOT 14 U/L (13-39) 11/11/23 ALT/SGPT 12 U/L (7-52) 11/11/23 Alkaline Phosphatase 67 U/L (34-104) 11/11/23 Total Protein 5.9 gm/dl (6.0-8.3) L 11/11/23 Albumin 3.4 gm/dl (3.4-5.0) 11/11/23 Globulin 2.5 gm/dl (2.5-4.0) 11/11/23 Albumin/Globulin Ratio 1.4 (0.9-2) 11/11/23 Adenovirus (PCR) Not Detected (NotDetected) 11/09/23 B. parapertussis DNA (PCR) Not Detected (NotDetected) 01/27 B. pertussis DNA (PCR) Not Detected (NotDetected) 11/09/23 C. pneumoniae DNA (PCR) Not Detected (NotDetected) 4 Coronavirus Type OC43 (PCR) Not Detected (NotDetected) 01/27 Coronavirus Type HKU1 (PCR) Not Detected (NotDetected) 01/27 Coronavirus Type 229E (PCR) Not Detected (NotDetected) 01/27 COVID-19 PCR Not Detected (NotDetected) 11/09/23 Coronavirus Type NL63 (PCR) Not Detected (NotDetected) 01/27 Human Metapneumovirus (PCR) Not Detected (NotDetected) 01/27 Influenza Virus Type A (PCR) Not Detected (NotDetected) Influenza Virus Type B (PCR) Not Detected (NotDetected) M. pneumoniae (PCR) Not Detected (NotDetected) 11/09/23 Parainfluenza Type 1 (PCR) Not Detected (NotDetected) 01/27 Parainfluenza Type 2 (PCR) Not Detected (NotDetected) 01/27 Parainfluenza Type 3 (PCR) Not Detected (NotDetected) 01/27 Parainfluenza Type 4 (PCR) Not Detected (NotDetected) 01/27 RSV (PCR) Not Detected (NotDetected) 11/09/23 Enterovirus/Rhinovirus (PCR) Not Detected (NotDetected) Chest X-Ray 11/11/23 Code Status & VTE Plan Code Status FULL CODE VTE Prophylaxis Plan VTE Prophylaxis will be ordered: Yes Supervising Physician Co-Signing Physician Notes Pt was seen and examined by myself, Juliana Stratton MD on the day of service. Care was coordinated with Noris Cantu PA-C. Presenting with episodes of dizziness. Feels like the room was spinning. AAOx3 on exam. RRR CT abd/pelvis noting stenosis of AAA and anuerysm Vascular Surgery followup. IV fluids, prn meclizine and antiemetics. Otherwise as above. I spent a total [id number] coordinating, documenting, and providing care for this patient excluding time spent in the performance of separately billed services
[2023-11-09] MEDS ORDERED: GLUCOSE 40% GEL 15 GM TUBE PO PRN (17:28)
[2023-11-09] MEDS ORDERED: CARBOHYDRATES FOR HYPOGLYCEMIA PO PRN (17:28)
[2023-11-09] MEDS ORDERED: GLUCOSE 10 TAB/TUBE PO PRN (17:28)
[2023-11-09] MEDS ORDERED: ALBUT/IPRATROP 3MG/0.5MG NEB 3 ML VIAL NEB PRN (17:28)
[2023-11-09] MEDS ORDERED: POLYETHYLENE (MIRALAX) 17 GM PACK PO PRN (17:28)
[2023-11-09] MEDS ORDERED: GLUCAGON FOR INJ 1 MG VIAL SQ PRN (17:28)
[2023-11-09] MEDS ORDERED: MAGNESIUM HYDROXIDE SUSP 30 ML UDC PO PRN (17:28)
[2023-11-09] MEDS ORDERED: DEXTROSE 50% 50 ML SYRINGE IV PRN (17:28)
[2023-11-09] MEDS ORDERED: ACETAMINOPHEN 325 MG TAB PO PRN (17:28)
[2023-11-09] MEDS ORDERED: ALUMINUM/MAGNESIUM SUSP 30 ML UDC PO PRN (17:28)
--- NOTE | 2023-11-09 17:43 | Ultrasound Report ---
US carotid doppler BI CLINICAL HISTORY: 73 years-old Female with dizziness. COMPARISON: None TECHNIQUE: Multiple real time sonographic images of the carotid bifurcations were obtained assessing costa scale, color Doppler and spectral wave form appearance FINDINGS: RIGHT CAROTID: The peak systolic velocity measurements in the right ICA is 140 cm/sec. The end last tolic velocity measured 30 cm/sec. The ICA to CCA ratio measured 1.61 which correlates with a stenos is of 50-69%. Moderate atherosclerosis. LEFT CAROTID: The peak systolic velocity measured in the left ICA is 184 cm/sec. The end diastolic velocity measured 29 cm/sec. The ICA to CCA ratio measured 1.46 which correlates with a stenosis of 5 0-69%. Moderate atherosclerosis. There is normal antegrade vertebral flow bilaterally. IMPRESSION: 1. Moderate atherosclerosis with elevated peak systolic velocities correlating with 50-69% stenosis of the bilateral internal carotid arteries.. 2. Normal antegrade vertebral flow bilaterally. ACT 112: Negative or not required by law. The above report was generated using voice recognition software. It may contain grammatical, syntax o r spelling errors. Electronically signed by: Romero Gonzalez M.D. 11/09/2023 5:41 PM
--- NOTE | 2023-11-09 18:18 | Pharmacy Report ---
Pharmacy Glycemic Short Note 2 - Date of Service November 09, 2023 - Glycemic Short BSG Results (Last 24 hours): 11/09/23 11/09/23 10:14 17:37 Glucose 162 H POC Glucose 88 OUTPATIENT ANTIDIABETIC REGIMEN: * Lantus 40 units SC HS * Trulicity 4.5 mg SC every Wednesday * HbA1c: 7.4% (11/09/23) ASSESSMENT: * 73 yo F admitted on 11/08/23 secondary to asthma exacerbation. Pharmacy has been consulted to assist with inpatient glycemic management. Patient is a Type 2 diabetic as an outpatient. Please refer to outpatient regimen and most recent HbA1c above. * Patient's BSG in ED was 163 mg/dL. Patient received 125 mg of IV Methylprednisolone in the ED. Has been ordered and tolerating a T2DM diet. Upon transfer to floor, BSG was 325 mg/dL. Provider entered Novolog and Lantus orders for last night. Novolog was based on weight/stress of 1. Lantus matched home dose. * Pharmacy was consulted at dinner time this evening secondary to steroid- induced hyperglycemia. Tolerating diet still. On IV Levaquin. Receiving 40 mg of IV Methylprednisolone every 8 hours currently. BSGs today were 266-352-372 mg/dL which prompted glycemic consult. * Will stress home basal dose to account for steroids and give dose now with ongoing doses starting tomorrow at bedtime. Novolog will be tightened to reflect weight/stress of 3 but this may need tightened even further throughout this evening. Will add overnight checks for tonight. Given significant hyperglycemia, will also order an IV insulin bolus to be given now to prevent patient from requiring a short term insulin drip. Potassium was 4.0 mg/dL this AM. PLAN FOR INPATIENT GLYCEMIC CONTROL: * 10 units IVP Insulin x 1 now * Basal insulin * Lantus 55 units SC HS (first dose now at dinnertime on 11/08) * Bolus insulin * NovoLog per scale ACHS or Q6hrs while NPO * Goal Range: Low 110 mg/dL - High 140 mg/dL * Correction Factor: 15 mg/dL/unit * Nutritional / Prandial insulin per carb ratio of 1 unit per 5 grams CHO consumed
[2023-11-09] MEDS: SODIUM CHLORIDE 0.9% 1,000 ML IV SCH (19:03)
[2023-11-09] MEDS: INSULIN ASPART PER UNIT CHARGE SC SCH (19:03)
--- OUTSIDE RECORDS SUMMARY | 2023-11-09 19:36 | External Medical Summary | Summary of Care ---
Author Name Unknown Organization [facility] Address [address] [place] [address] Phone [phone] Care Team Providers Care School Library Media Specialist Name Role Phone Dari Santana DO Primary Care Provider + [phone] Reason for Visit * Reason Onset Date Comments Medication Problem 11/02/2023 Encounter Details Date Type Department Care Team (Late st Contact Info) Description 11/02/2023 Telephone [facility] [address] [place] [address] Dari Santana DO [address] [place] [address] Medication Problem Allergies Active Allergy Reactions Criticality Noted Date Comments Coenzyme Q10 12/11/2021 Other reaction(s): Leg Cramps Simvastatin 12/09/2009 Myalgia:(thighs, shoulder) documented as of this encounter (statuses as of 11/04/2023) Medications Medication Sig Dispensed Refills Start Date End Date Status aspirin 81 MG chewable tabletIndications:He art murmur Take 1 Tablet by mouth in the morning. with food.. 100 Tab 5 08/07/2015 Active Glucose Blood (ONETOUCH ULTRA BLUE) STRPIndications:Samuel herbertline diabetes Use as directed 2 times a day. Use up to four times a day as directed 100 Strip 11 01/03/2016 Active Blood Glucose Monitoring Suppl (ONETOUCH ULTRA SYSTEM) W/DEVICE KITIndications:Borde rline diabetes Use as directed 2 times a day. 1 Kit 0 01/03/2016 Active ONETOUCH ULTRASOFT LANCETS MISCIndications:Samuel michael diabetes Use as directed 2 times a day. 1 Box Dosing Unit 11 01/03/2016 Active zoster vac recomb adjuvanted (SHINGRIX) 50 MCG/0.5ML injectionIndications :Need for vaccination for zoster Inject 0.5 mL into a large muscle now and repeat dose in 60 to 180 days 1 Each 1 03/11/2020 Active HYDROcodone-Acetamin ophen 10-325 MG Oral TabletIndications:Ac simon pain of left knee Take by mouth 1 Tablet every 8 hours as needed for Pain, Severe. 30 Tablet 0 11/26/2021 Active Additional Information Patient not taking.Reported on 10/14/2023 Nebulizer/Tubing/Lissy thpiece KitIndications:COPD, group C, by GOLD 2017 classification ([facility]) Use as directed with machine 1 Kit 0 11/26/2021 Active Compressor NebulizerIndications :COPD, group C, by GOLD 2017 classification ([facility]) Inhale via nebulizer . Use as directed. 1 Each 1 04/01/2022 Active predniSONE 10 MG Oral Tablet (Deltasone)Indicatio ns:COPD with exacerbation ([facility]) Take 5 tabs for 2 days, 4 tabs for 2 days, 3 tabs for 2 days, 2 tabs for 2 days 1 tab for 2 days 30 Tablet 1 08/10/2022 Active Levalbuterol HCl 0.63 MG/3ML Inhalation Nebulization Solution (Xopenex) Inhale 3 mL via nebulizer every 4 hours as needed for Wheezing. 3 mL 12 11/04/2022 Active Spiriva HandiHaler 18 MCG Inhalation Capsule (tiotropium bromide)Indications: COPD, group C, by GOLD 2017 classification ([facility]) Inhale 1 Capsule by mouth in the morning. For inhaler only, do not swallow.. 30 Capsule 11 12/03/2022 Active Atorvastatin Calcium 20 MG Oral Tablet (Lipitor)Indications :Dyslipidemia, goal LDL below 70 TAKE 1 TABLET BY MOUTH EVERY DAY IN THE MORNING 90 Tablet 2 12/17/2022 Active predniSONE 10 MG Oral Tablet (Deltasone)Indicatio ns:Tendinitis of right foot Take 5 tabs for 2 days, 4 tabs for 2 days, 3 tabs for 2 days, 2 tabs for 2 days 1 tab for 2 days 30 Tablet 0 01/28/2023 Active metFORMIN HCl 500 MG Oral Tablet (Glucophage)Indicati ons:Type 2 diabetes mellitus without complication, without long-term current use of insulin (HCC) TAKE 1 TABLET BY MOUTH TWICE A DAY WITH BREAKFAST AND DINNER 180 Tablet 3 02/25/2023 Active Lisinopril-hydroCHLO ROthiazide 10-12.5 MG Oral TabletIndications:Ty pe 2 diabetes mellitus without complication, without long-term current use of insulin (HCC) TAKE 1 TABLET BY MOUTH EVERY DAY 90 Tablet 1 06/18/2023 Active ALPRAZolam 0.25 MG Oral Tablet (xaNAX)Indications:A nxiety TAKE 1 TABLET BY MOUTH 3 TIMES A DAY NEEDED FOR ANXIETY 90 Tablet 0 10/14/2023 Active Triamcinolone Acetonide 0.1 % External Ointment (Aristocort)Indicati ons:Vulvar itching Apply topically to affected area 2 times a day. Till better then as needed 30 g 0 10/14/2023 Active traMADol HCl 50 MG Oral Tablet (Ultram)Indications: Left shoulder tendinitis Take 1 Tablet by mouth every 6 hours as needed (pain). 60 Tablet 1 10/14/2023 Active OneTouch Verio w/Device KitIndications:Type 2 diabetes mellitus with diabetic peripheral angiopathy without gangrene, unspecified whether prison insulin use (HCC) Use up to 4 times a day E11.9 1 Kit 0 10/14/2023 Active OneTouch Verio In Vitro Strip (Glucose Blood)Indications:Ty pe 2 diabetes mellitus with diabetic peripheral angiopathy without gangrene, unspecified whether terminal make up operator insulin use (HCC) Use up to 4 times a day E11.9 100 Strip 11 10/14/2023 Active Pantoprazole Sodium 20 MG Oral Tablet Delayed Release (Protonix)Indication s:Gastroesophageal reflux disease without esophagitis Take 1 Tablet by mouth in the morning. 30 minutes before the first meal of the day. Do not crush, split or chew the tablet. 90 Tablet 3 10/15/2023 Active Empagliflozin 10 MG Oral Tablet (Jardiance)Indicatio ns:Type 2 diabetes mellitus with diabetic peripheral angiopathy without gangrene, without long-term current use of insulin (HCC) Take 1 Tablet by mouth in the morning. 30 Tablet 11 10/18/2023 Active predniSONE 10 MG Oral Tablet (Deltasone)Indicatio ns:Tendinitis of right foot Take 5 tabs for 2 days, 4 tabs for 2 days, 3 tabs for 2 days, 2 tabs for 2 days 1 tab for 2 days 30 Tablet 0 10/22/2023 Active Azithromycin 250 MG Oral Tablet (Zithromax Z-Tommy) Take two tablets by mouth on first day, then 1 tablet daily until gone 6 Tablet 0 10/22/2023 Active documented as of this encounter (statuses as of 11/04/2023) Active Problems Problem Noted Date Diagnosed Date Chronic kidney disease, stage 3a 11/11/2020 Overview: Per CKD protocol COPD, group C, by GOLD 2017 classification 09/18 Overview: Per COPD GOLD Classification COPD with exacerbation 09/07/2019 Morbid obesity with body mass index of 40.0-44.9 in adult 12/01/2018 Type 2 diabetes mellitus wit h diabetic peripheral angiopathy without gangrene 03/29/2017 HTN, goal below 130/80 11/06/2015 Anxiety 07/05/2015 Statin intolerance 07/05/2015 JACE on CPAP 12/10/2014 Dyslipidemia, goal LDL below 70 06/14/2013 Tobacco use disorder 06/24/2009 ADVANCE DIRECTIVE INFORMATION 08/03/2006 Overview: No, Advance Directive brochure offered , patient declined. documented as of this encounter (statuses as of 11/04/2023) Resolved Problems Problem Noted Date Diagnosed Date Resolved Date Type 2 diabetes mellitus wit h diabetic peripheral angiopathy without gangrene 03/29/2017 0 05/06/2017 Type 2 diabetes mellitus without complication 01/13/20 16 03/29/2017 COPD, moderate 03/11/2015 09/21/2019 Overview: Per COPD GOLD Classification Borderline diabetes 06/14/2013 08/13/20 16 Body mass index (BMI) of 40.0-44.9 in adult 12/08/2010 12/14/2018 Overview: ICD-10 update of inactive term Obesity, Class II, BMI 35-39 .9, isolated (see actual BMI) 12/02/2009 12/08/2010 Overview: Per Obesity Taxonomy Dyslipidemia, goal to be determined 08/15/2009 08/07/2013 Overview: Per Lipid Taxonomy. Other specific muscle disorders 09/15/2006 05/06/2017 DIEGO MUNA SOFT TISSUE HEAD 09/15/2006 Contusion of foot 02/10/2006 05/06/2017 Calculus of ureter 10/18/2003 0 OBESITY, UNSPECIFIED 03/28/2002 010 Overview: Per Obesity Taxonomy PURE HYPERCHOLESTEROLEM 08/06 Overview: Per Lipid Taxonomy. documented as of this encounter (statuses as of 11/04/2023) Immunizations Name Administration Dates Next Due COVID-19 mRNA, LNP-s, No Pre serve, 2-Dose Series ([employer]) 08/06/2021,12/05/2020,11/14/2020 Pneumococcal Conjugate Vacc, 13 Valent (Prevnar) 08/13/2016 Pneumococcal Polysaccharide PPV23 (Pneumovax) 07/05/2015 Season Influenza, Quad, PF, Adjuvanted, 65+ Yrs, IM (FLUAD) 07/09/2020 Seasonal Influenza, PF, 6 M & above, IM , (FluLaval or Fluzone) 06/23/2019,08/04/2017 Seasonal Influenza, Quadriva lent Hd (Fluzone Hd) 10/14/2023,06/03/2022,05/26/2021 Seasonal Influenza, Quadriva lent, No Preserve, IM 08/13/2016,07/05/2015 Seasonal Influenza, Split, I IV3, With Preserve, Inj 05/25/2013,06/21/2010,06/10/2009,07/01 TDAP (age 11 and older)(Adacel) 05/22/2016,10/14 documented as of this encounter Social History Tobacco Use Types Packs/Day Years Used Date Smoking Tobacco: Every Day Cigarettes 0.5 40 Smokeless Tobacco: Never Alcohol Use Standard Drinks/Week Comments No 0 (1 standard drink = 0.6 oz pur e alcohol) PHQ-2 Answer Date Recorded PHQ-2 Score 1 01/02/2020 Sex and Gender Information Value Date Recorded Sex Assigned at Female 12/03/2022 8:10 AM EDT Gender Identity Female 12/03/2022 8:10 AM EDT Sexual Orientation Straight 05/26/2021 12 :42 PM EDT Job Start Date Occupation Industry Not on file Not on file Not on file documented as of this encounter Miscellaneous Notes * Telephone Encounter - Shyann Leger LPN - 11/02/2023 8:12 AM EST Received Fax from [facility] they have a concern regarding pt's pantoprazole sodium. Please see the fax regarding this in your mail box on your desk. documented in this encounter Plan of Treatment Upcoming Encounters Date Type Department Care Team (Late st Contact Info) Description 12/22/2023 2:30 PM EDT [facility] Visit [facility] [address] [facility] [place] [address] Cheryl Tolbert PA-C [address] [facility] [place] [address] 04/27/2024 9:10 AM EDT Office Visit [facility] [address] [place] [id number] Dari Santana DO [address] [place] [address] Health Maintenance Due Date Last Done Comments Alpha-1 Antitrypsin 1968 Hepatitis C Screening 1968 LUNG CANCER SCREENING - USE SMARTSET 44434 1998 Zoster Vaccines (1 of 2) 1998 DXA Scan 03/21/2017 03/21/2014 COLONOSCOPY-EVERY 3 YRS AGES 18-100 06/05/2018 06/05/2015, 06/05/2015 DISCUSS TOBACCO CESSATION (REFER TO SMARTSET #3291) 08/04/2018 08/04/2017 (Course Completed) Depression Screening 12/25/2020 12/26/2019 CKD PHOS USE SMARTSET 39094 05/13/2022 05/13/2021 Diabetic Eye Exam 12/09/2022 12/09/2021, , 09/16/2018, Additional history exists COVID-19 Vaccine ( season) 2023 08/06/2021, 12/05/2020, 11/14/2020 Diabetic Foot Exam 12/04/2023 12/03/2022, 0 05/26/2021, 12/01/2018, Additional history exists GFR 04/14/2024 10/15/2023, 04/0 09/2022, 06/08/2022, Additional history exists HbA1c 04/14/2024 10/15/2023, 04/0 09/2022, 06/08/2022, Additional history exists O2 ASSESSMENT COMPLETED IN PAST YEAR FOR COPD 10/14/2024 10/14/2023 Albumin/Creatinine Ratio 10/15/2024 024, 06/09/2022, 04/05/2018, Additional history exists B-12 10/15/2024 10/15/2023, 090 03/2021, 06/06/2019 CKD HGB USE SMARTSET 32412 10/15/202410/15, 05/13/2021, 06/24/2009 DTaP,Tdap,and Td Vaccines (3 - Td or Tdap) 05/22/2026 05/22/2016, 10/14/2006, 09/06/1995 Pneumococcal Vaccine: 65+ Years Completed 08/13/2016, 07/05/2015 Influenza Vaccine (FLU shot) Completed 04/2024, 06/03/2022, 05/26/2021, Additional history exists GARDASIL-HPV IMMUNIZATION SERIES Aged Out No longer eligible based on patient's age to complete this topic Hepatitis B Aged Out No longer eligi ble based on patient's age to complete this topic MENINGOCOCCAL (MENACTRA/MENVEO) Aged Out No longer eligible based on patient's age to complete this topic documented as of this encounter Medical Devices Not on filedocumented as of this encounter Care Teams School Library Media Specialist Relationship Specialty Start Date End Date Dari Santana DO [address] [place] [id number] PCP - General Family Medicine 10/13/11 documented as of this encounter
--- OUTSIDE RECORDS SUMMARY | 2023-11-09 19:37 | External Medical Summary | Summary of Care ---
Author Name Unknown Organization [facility] Address [address] [facility] [address] Phone [phone] Care Team Providers Care Reports Analyst Name Role Phone DinoDari kim Riana YEPEZ Primary Care Provider [phone] Encounter Details Date Type Department Care Team (Late st Contact Info) Description 10/20/2023 Orders Only PATIENT PORTAL DO NOT DELETE THIS DEPT USED BY [place] [id number] Allergies Active Allergy Reactions Criticality Noted Date Comments Coenzyme Q10 12/11/2021 Other reaction(s): Leg Cramps Simvastatin 12/09/2009 Myalgia:(thighs, shoulder) documented as of this encounter (statuses as of 10/20/2023) Medications Medication Sig Dispensed Refills Start Date End Date Status aspirin 81 MG chewable tabletIndications:He art murmur Take 1 Tablet by mouth in the morning. with food.. 100 Tab 5 08/07/2015 Active Glucose Blood (ONETOUCH ULTRA BLUE) STRPIndications:Bord fernanda diabetes Use as directed 2 times a day. Use up to four times a day as directed 100 Strip 11 01/03/2016 Active Blood Glucose Monitoring Suppl (ONETOUCH ULTRA SYSTEM) W/DEVICE KITIndications:Borde rline diabetes Use as directed 2 times a day. 1 Kit 0 01/03/2016 Active ONETOUCH ULTRASOFT LANCETS MISCIndications:Bord fernanda diabetes Use as directed 2 times a day. 1 Box Dosing Unit 11 01/03/2016 Active zoster vac recomb adjuvanted (SHINGRIX) 50 MCG/0.5ML injectionIndications :Need for vaccination for zoster Inject 0.5 mL into a large muscle now and repeat dose in 60 to 180 days 1 Each 1 03/11/2020 Active HYDROcodone-Acetamin ophen 10-325 MG Oral TabletIndications:Ac alatna pain of left knee Take by mouth 1 Tablet every 8 hours as needed for Pain, Severe. 30 Tablet 0 11/26/2021 Active Additional Information Patient not taking.Reported on 10/14/2023 Nebulizer/Tubing/Lissy thpiece KitIndications:COPD, group C, by GOLD 2017 classification ([facility]) Use as directed with machine 1 Kit 0 11/26/2021 Active Compressor NebulizerIndications :COPD, group C, by GOLD 2017 classification ([facility]) Inhale via nebulizer . Use as directed. 1 Each 1 04/01/2022 Active predniSONE 10 MG Oral Tablet (Deltasone)Indicatio ns:COPD with exacerbation ([facility]) Take 5 tabs for 2 days, 4 [...] COPD, group C, by GOLD 2017 classification ([facility]) Inhale 1 Capsule by mouth in the [...] 2 days 30 Tablet 0 01/28/2023 Active Azithromycin 250 MG Oral Tablet (Zithromax Z-Tommy) Take two tablets by mouth on first day, then 1 tablet daily until gone 6 Tablet 0 01/28/2023 Active predniSONE 10 MG Oral Tablet (Deltasone)Indicatio [...] diabetic peripheral angiopathy without gangrene, unspecified whether group home insulin use (HCC) Use up to 4 times a day E11.9 1 Kit 0 10/14/2023 Active OneTouch Verio In Vitro Strip (Glucose Blood)Indications:Ty pe 2 diabetes mellitus with diabetic peripheral angiopathy without gangrene, 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 30 Tablet 11 10/18/2023 Active documented as of this encounter (statuses as of 10/20/2023) Active Problems Problem Noted Date Diagnosed Date [...] as of this encounter (statuses as of 10/20/2023) Resolved Problems Problem Noted Date Diagnosed Date [...] as of this encounter (statuses as of 10/20/2023) Immunizations Name Administration Dates Next Due COVID-19 mRNA, LNP-s, No Pre serve, 2-Dose Series ([employer]) 08/06/2021,12/05/2020,11/14/2020 Pneumococcal Conjugate Vacc, 13 Valent (Prevnar) [...] on file documented as of this encounter Plan of Treatment Upcoming Encounters Date Type Department Care Team (Late st Contact Info) Description 04/27/2024 9:10 AM EDT Office Visit [facility] [address] [facility] [place] [address] Dari Santana, [address] [place] [address] Health Maintenance Due Date Last Done Comments Alpha-1 Antitrypsin 1968 Hepatitis C Screening 1968 LUNG CANCER SCREENING - USE SMARTSET 33535 1998 Zoster Vaccines (1 of 2) 1998 Hepatitis B (1 of 3 - Risk 3-dose series) 2008 DXA Scan 03/21/2017 03/21/2014 COLONOSCOPY-EVERY 3 YRS AGES 18-100 06/05/2018 06/05/2015, 06/05/2015 DISCUSS TOBACCO CESSATION (REFER TO SMARTSET #3291) 08/04/2018 08/04/2017 (Course Completed) Depression Screening 12/25/2020 12/26/2019 CKD PHOS USE SMARTSET 22635 05/13/2022 05/13/2021 Diabetic Eye Exam 12/09/2022 12/09/2021, [...] 04/05/2018, Additional history exists B-12 10/15/2024 10/15/2023, 03/2021, 06/06/2019 CKD HGB USE SMARTSET 34343 10/15/202410/15, 05/13/2021, 06/24/2009 DTaP,Tdap,and Td Vaccines (3 [...] filedocumented as of this encounter Care Teams Reports Analyst Relationship Specialty Start Date End Date Dari Santana DO [address] [facility] [place] [address] PCP - General Family Medicine 10/13/11 documented as of this encounter
--- OUTSIDE RECORDS SUMMARY | 2023-11-09 19:37 | External Medical Summary | Summary of Care ---
Author Name Unknown Organization [facility] Address [address] [place] [address] Phone [phone] Care Team Providers Care Singer Back Tender Name Role Phone Nerissa Santana DO Primary Care Provider [phone] Reason for Visit * Reason Onset Date Comments Medication Refill 10/20/2023 Encounter Details Date Type Department Care Team (Late st Contact Info) Description 10/20/2023 Refill [facility] [address] [place] [phone] Nerissa Santana DO [address] [place] [address] Tendinitis of right foot Allergies Active Allergy Reactions Criticality Noted Date Comments Coenzyme Q10 12/11/2021 Other reaction(s): Leg Cramps Simvastatin 12/09/2009 Myalgia:(thighs, shoulder) documented as of this encounter (statuses as of 10/22/2023) Medications Medication Sig Dispensed Refills Start Date End Date Status aspirin 81 MG chewable tabletIndications:H eart murmur Take 1 Tablet by mouth in the morning. with food.. 100 Tab 5 08/07/2015 Active Glucose Blood (ONETOUCH ULTRA BLUE) STRPIndications:Bor derline diabetes Use as directed 2 times a day. Use up to four times a day as directed 100 Strip 11 01/03/2016 Active Blood Glucose Monitoring Suppl (ONETOUCH ULTRA SYSTEM) W/DEVICE KITIndications:Bord fernanda diabetes Use as directed 2 times a day. 1 Kit 0 01/03/2016 Active ONETOUCH ULTRASOFT LANCETS MISCIndications:Bor derline diabetes Use as directed 2 times a day. 1 Box Dosing Unit 11 01/03/2016 Active zoster vac recomb adjuvanted (SHINGRIX) 50 MCG/0.5ML injectionIndication s:Need for vaccination for zoster Inject 0.5 mL into a large muscle now and repeat dose in 60 to 180 days 1 Each 1 03/11/2020 Active HYDROcodone-Acetami nophen 10-325 MG Oral TabletIndications:A cute pain of left knee Take by mouth 1 Tablet every 8 hours as needed for Pain, Severe. 30 Tablet 0 11/26/2021 Active Additional Information Patient not taking.Reported on 10/14/2023 Nebulizer/Tubing/Mo uthpiece KitIndications:COPD , group C, by GOLD 2017 classification ([facility]) Use as directed with machine 1 Kit 0 11/26/2021 Active Compressor NebulizerIndication s:COPD, group C, by GOLD 2017 classification ([facility]) Inhale via nebulizer . Use as directed. 1 Each 1 04/01/2022 Active predniSONE 10 MG Oral Tablet (Deltasone)Indicati ons:COPD with exacerbation (HCC) Take 5 tabs for 2 days, 4 tabs for 2 days, 3 tabs for 2 days, 2 tabs for 2 days 1 tab for 2 days 30 Tablet 1 08/10/2022 Active Levalbuterol HCl 0.63 MG/3ML Inhalation Nebulization Solution (Xopenex) Inhale 3 mL via nebulizer every 4 hours as needed for Wheezing. 3 mL 12 11/04/2022 Active Spiriva HandiHaler 18 MCG Inhalation Capsule (tiotropium bromide)Indications :COPD, group C, by GOLD 2017 classification ([facility]) Inhale 1 Capsule by mouth in the morning. For inhaler only, do not swallow.. 30 Capsule 11 12/03/2022 Active Atorvastatin Calcium 20 MG Oral Tablet (Lipitor)Indication s:Dyslipidemia, goal LDL below 70 TAKE 1 TABLET BY MOUTH EVERY DAY IN THE MORNING 90 Tablet 2 12/17/2022 Active predniSONE 10 MG Oral Tablet (Deltasone)Indicati ons:Tendinitis of right foot Take 5 tabs for 2 days, 4 tabs for 2 days, 3 tabs for 2 days, 2 tabs for 2 days 1 tab for 2 days 30 Tablet 0 01/28/2023 Active metFORMIN HCl 500 MG Oral Tablet (Glucophage)Indicat ions:Type 2 diabetes mellitus without complication, without long-term current use of insulin (HCC) TAKE 1 TABLET BY MOUTH TWICE A DAY WITH BREAKFAST AND DINNER 180 Tablet 3 02/25/2023 Active Lisinopril-hydroCHL OROthiazide 10-12.5 MG Oral TabletIndications:T ype 2 diabetes mellitus without complication, without long-term current use of insulin (HCC) TAKE 1 TABLET BY MOUTH EVERY DAY 90 Tablet 1 06/18/2023 Active ALPRAZolam 0.25 MG Oral Tablet (xaNAX)Indications: Anxiety TAKE 1 TABLET BY MOUTH 3 TIMES A DAY NEEDED FOR ANXIETY 90 Tablet 0 10/14/2023 Active Triamcinolone Acetonide 0.1 % External Ointment (Aristocort)Indicat ions:Vulvar itching Apply topically to affected area 2 times a day. Till better then as needed 30 g 0 10/14/2023 Active traMADol HCl 50 MG Oral Tablet (Ultram)Indications :Left shoulder tendinitis Take 1 Tablet by mouth every 6 hours as needed (pain). 60 Tablet 1 10/14/2023 Active OneTouch Verio w/Device KitIndications:Type 2 diabetes mellitus with diabetic peripheral angiopathy without gangrene, unspecified whether retirement insulin use (HCC) Use up to 4 times a day E11.9 1 Kit 0 10/14/2023 Active OneTouch Verio In Vitro Strip (Glucose Blood)Indications:T ype 2 diabetes mellitus with diabetic peripheral angiopathy without gangrene, unspecified whether retirement insulin use (HCC) Use up to 4 times a day E11.9 100 Strip 11 10/14/2023 Active Pantoprazole Sodium 20 MG Oral Tablet Delayed Release (Protonix)Indicatio ns:Gastroesophageal reflux disease without esophagitis Take 1 Tablet by mouth in the morning. 30 minutes before the first meal of the day. Do not crush, split or chew the tablet. 90 Tablet 3 10/15/2023 Active Empagliflozin 10 MG Oral Tablet (Jardiance)Indicati ons:Type 2 diabetes mellitus with diabetic peripheral angiopathy without gangrene, without long-term current use of insulin (HCC) Take 1 Tablet by mouth in the morning. 30 Tablet 11 10/18/2023 Active predniSONE 10 MG Oral Tablet (Deltasone)Indicati ons:Tendinitis of right foot Take 5 tabs for 2 days, 4 tabs for 2 days, 3 tabs for 2 days, 2 tabs for 2 days 1 tab for 2 days 30 Tablet 0 10/22/2023 Active Azithromycin 250 MG Oral Tablet (Zithromax Z-Tommy) Take two tablets by mouth on first day, then 1 tablet daily until gone 6 Tablet 0 10/22/2023 Active predniSONE 10 MG Oral Tablet (Deltasone)Indicati ons:Tendinitis of right foot Take 5 tabs for 2 days, 4 tabs for 2 days, 3 tabs for 2 days, 2 tabs for 2 days 1 tab for 2 days 30 Tablet 0 01/28/2023 10/20/19 24 Discontinu ed(Refill) Azithromycin 250 MG Oral Tablet (Zithromax Z-Tommy) Take two tablets by mouth on first day, then 1 tablet daily until gone 6 Tablet 0 01/28/2023 10/20/19 24 Discontinu ed(Refill) documented as of this encounter (statuses as of 10/22/2023) Active Problems Problem Noted Date Diagnosed Date [...] as of this encounter (statuses as of 10/22/2023) Resolved Problems Problem Noted Date Diagnosed Date [...] as of this encounter (statuses as of 10/22/2023) Immunizations Name Administration Dates Next Due COVID-19 mRNA, LNP-s, No Pre serve, 2-Dose Series (Pfizer) 08/06/2021,12/05/2020,11/14/2020 Pneumococcal Conjugate Vacc, 13 Valent (Prevnar) [...] encounter Miscellaneous Notes * Telephone Encounter - Nerissa Santana DO - 10/22/2023 8:32 AM ESTSigned Prescriptions: Disp Refills predniSONE 10 MG Oral Tablet (Deltasone) 30 Tab*0 Sig: Take 5 tabs for 2 days, 4 tabs for 2 days, 3 tabs for 2 days, 2 tabs for 2 days 1 tab for 2 days Authorizing Provider: NERISSA SANTANA Azithromycin 250 MG Oral Tablet (Zithromax*6 Tabl*0 Sig: Take two tablets by mouth on first day, then 1 tablet daily until gone Authorizing Provider: NERISSA SANTANA * Telephone Encounter - Lisa Doyle LPN - 10/21/2023 3:10 PM ESTPending Prescriptions: Disp Refills predniSONE 10 MG Oral Tablet (Deltasone) 30 Tab*0 Sig: Take 5 tabs for 2 days, 4 tabs for 2 days, 3 tabs for 2 days, 2 tabs for 2 days 1 tab for 2 days Azithromycin 250 MG Oral Tablet (Zithromax*6 Tabl*0 Sig: Take two tablets by mouth on first day, then 1 tablet daily until gone * Telephone Encounter - Elias Mosquera - 10/21/2023 5:17 AM ESTPending Prescriptions: Disp Refills predniSONE 10 MG Oral Tablet (Deltasone) 30 Tab*0 Sig: Take 5 tabs for 2 days, 4 tabs for 2 days, 3 tabs for 2 days, 2 tabs for 2 days 1 tab for 2 days Azithromycin 250 MG Oral Tablet (Zithromax*6 Tabl*0 Sig: Take two tablets by mouth on first day, then 1 tablet daily until gone documented in this encounter Plan of Treatment Upcoming Encounters Date Type Department Care Team (Late st Contact Info) Description 04/27/2024 9:10 AM EDT [facility] [address] [facility] [address] [facility]erissa [facility] [address] [facility] [address] Health Maintenance Due Date Last Done Comments Alpha-1 Antitrypsin 1966 Hepatitis C Screening 1966 LUNG CANCER SCREENING - USE SMARTSET 37226 1998 Zoster Vaccines (1 of 2) 1998 Hepatitis B (1 of 3 - Risk 3-dose series) 2008 DXA Scan 03/21/2017 03/21/2014 COLONOSCOPY-EVERY 3 YRS AGES 18-100 06/05/2018 06/05/2015, 06/05/2015 DISCUSS TOBACCO CESSATION (REFER TO SMARTSET #3291) 08/04/2018 08/04/2017 (Course Completed) Depression Screening 12/25/2020 12/26/2019 CKD PHOS USE SMARTSET 69236 05/13/2022 05/13/2021 Diabetic Eye Exam 12/09/2022 12/09/2021, [...] 04/05/2018, Additional history exists B-12 10/15/2024 10/15/2023, 09/0 03/2021, 06/06/2019 CKD HGB USE SMARTSET 68253 10/15/202410/15, 05/13/2021, 06/24/2009 DTaP,Tdap,and Td Vaccines (3 [...] Not on filedocumented as of this encounter Visit Diagnoses Diagnosis Tendinitis of right foot documented in this encounter Care Teams Singer Back Tender Relationship Specialty Start Date End Date Nerissa Santana DO [address] [place] [address] PCP - General Family Medicine 10/13/11 documented as of this encounter
--- OUTSIDE RECORDS SUMMARY | 2023-11-09 19:37 | External Medical Summary | Summary of Care ---
Author Name Unknown Organization [facility] Address [address] [place] [address] Phone [phone] Care Team Providers Care Senior Technical Manager Name Role Phone Dari Santana DO Primary Care Provider + [phone] Reason for Visit * Reason Comments Outpatient Testing Encounter Details Date Type Department Care Team (Late st Contact Info) Description 10/15/2023 1:30 PM EST Laboratory Laboratory [facility] [address] [place] [phone] [facility] Lab [facility] [address] [facility] [place] [address] Type 2 diabetes mellitus with diabetic peripheral angiopathy without gangrene, unspecified whether snf insulin use (HCC); HTN, goal below 130/80; Dyslipidemia, goal LDL below 70; Numbness and tingling of left hand; Chronic kidney disease, stage 3a ([facility]); Encounter for long-term (current) use of medications Allergies Active Allergy Reactions Criticality Noted Date Comments Coenzyme Q10 12/11/2021 Other reaction(s): Leg Cramps Simvastatin 12/09/2009 Myalgia:(thighs, shoulder) documented as of this encounter (statuses as of 10/15/2023) Medications Medication Sig Dispensed Refills Start Date End Date Status aspirin 81 MG chewable tabletIndications:He art murmur Take 1 Tablet by mouth in the morning. with food.. 100 Tab 5 08/07/2015 Active Glucose Blood (ONETOUCH ULTRA BLUE) STRPIndications:Rustamd fernanda diabetes Use as directed 2 times a day. Use up to four times a day as directed 100 Strip 11 01/03/2016 Active Blood Glucose Monitoring Suppl (collegefeedTOUCH ULTRA SYSTEM) W/DEVICE KITIndications:Leyla rlbj diabetes Use as directed 2 times a [...] Active HYDROcodone-Acetamin ophen 10-325 MG Oral TabletIndications:Ac united [place] pain of left knee Take by mouth 1 Tablet every 8 hours as needed for Pain, Severe. 30 Tablet 0 11/26/2021 Active Additional Information Patient not taking.Reported on 10/14/2023 Nebulizer/Tubing/Lissy thpiece KitIndications:COPD, group C, by GOLD 2017 classification ([facility]) Use as directed with machine 1 Kit 0 11/26/2021 Active Compressor NebulizerIndications :COPD, group C, by GOLD 2017 classification ([facility]) Inhale via nebulizer . Use as directed. 1 Each 1 04/01/2022 Active predniSONE 10 MG Oral Tablet (Deltasone)Indicatio ns:COPD with exacerbation (HCC) Take 5 tabs for [...] COPD, group C, by GOLD 2017 classification ([facility]) Inhale 1 Capsule by mouth [...] needed (pain). 60 Tablet 1 10/14/2023 Active [employer] Anytime | AnywhereTouch Verio w/Device KitIndications:Type 2 diabetes mellitus with diabetic peripheral angiopathy without gangrene, unspecified whether intermediate teacher insulin use (HCC) Use up to 4 times a day E11.9 1 Kit 0 10/14/2023 Active OneTouch Verio In Vitro Strip (Glucose Blood)Indications:Ty pe 2 diabetes mellitus with diabetic peripheral angiopathy without gangrene, unspecified whether snf insulin use (HCC) Use up to 4 times a day E11.9 100 Strip 11 10/14/2023 Active Pantoprazole Sodium 20 MG Oral Tablet Delayed Release (Protonix)Indication s:Gastroesophageal reflux disease without esophagitis Take 1 Tablet by mouth in the morning. 30 minutes before the first meal of the day. Do not crush, split or chew the tablet. 90 Tablet 3 10/15/2023 Active documented as of this encounter (statuses as of 10/15/2023) Active Problems Problem Noted Date Diagnosed Date [...] as of this encounter (statuses as of 10/15/2023) Resolved Problems Problem Noted Date Diagnosed Date [...] as of this encounter (statuses as of 10/15/2023) Immunizations Name Administration Dates Next Due COVID-19 mRNA, LNP-s, No Pre serve, 2-Dose Series ([employer]) 08/06/2021,12/05/2020,11/14/2020 Pneumococcal Conjugate Vacc, 13 Valent (Prevnar) 08/13/2016 Pneumococcal Polysaccharide PPV23 (Pneumovax) 07/05/2015 Season Influenza, Quad, PF, Adjuvanted, 65+ Yrs, IM (FLUAD) 07/09/2020 Seasonal Influenza, PF, 6 M & above, IM , (FluLaval or Fluzone) 06/23/2019,08/04/2017 Seasonal Influenza, Quadriva lent Hd (Fluzone Hd) 10/14/2023,06/03/2022,05/26/2021 Seasonal Influenza, Quadriva lent, No Preserve, IM 08/13/2016,07/05/2015 Seasonal Influenza, Split, I IV3, With Preserve, Inj 05/25/2013,06/21/2010,06/10/2009,07/01 TD - Tetanus/Diptheria (ADULT) 09/06/1995 TDAP (age 11 and older)(Adacel) 05/22/2016,10/14 documented [...] Description 04/27/2024 9:10 AM EDT Office Visit [facility] [address] [place] [address] Dari Santana DO [address] [place], [place] [id number] Pending Results Name Type Priority Associated Diagnoses Date /Time HEMOGLOBIN A1C Lab Routine Type 2 diabetes mellitus with diabetic peripheral angiopathy without gangrene, unspecified whether intermediate teacher insulin use (HCC) 10/15/2023 1:13 PM EST BASIC METABOLIC PANEL Lab Routine HTN, goal below 130/80 10/15/2023 1:13 PM EST LIPID PANEL WITH DIRECT LDL IF TG IS HIGH Lab Routine Dyslipidemia, goal LDL below 70 10/15/2023 1:13 PM EST HEPATIC FUNCTION PANEL Lab Routine Dyslipidemia, goal LDL below 70 10/15/2023 1:13 PM EST VITAMIN B12 Lab Routine Numbness and tingling of left hand 10/15/2023 1:13 PM EST IRON SCREEN, INCLUDING TIBC Lab Routine Chronic kidney disease, stage 3a (HCC) Numbness and tingling of left hand 10/15/2023 1:13 PM EST MAGNESIUM Lab Routine Encounter for long-term (current) use of medications 10/15/2023 1:13 PM EST ALBUMIN / CREATININE RATIO, URINE Lab Routine Chronic kidney disease, stage 3a (HCC) 10/15/2023 1:16 PM EST Health Maintenance Due Date Last Done Comments Alpha-1 Antitrypsin 1968 Hepatitis C Screening 1966 LUNG CANCER SCREENING - USE SMARTSET 35535 1998 Zoster Vaccines (1 of 2) 1998 Hepatitis B (1 of 3 - Risk 3-dose series) 2008 DXA Scan 03/21/2017 03/21/2014 COLONOSCOPY-EVERY 3 YRS AGES 18-100 06/05/2018 06/05/2015, 06/05/2015 DISCUSS TOBACCO CESSATION (REFER TO SMARTSET #3291) 08/04/2018 08/04/2017 (Course Completed) Depression Screening 12/25/2020 12/26/2019 B-12 05/13/2022 05/13/2021, 06/06/2019 CKD PHOS USE SMARTSET 11540 05/13/2022 05/13/2021 Diabetic Eye Exam 12/09/2022 12/09/2021, , 09/16/2018, Additional history exists COVID-19 Vaccine ( season) 2023 08/06/2021, 12/05/2020, 11/14/2020 GFR 06/06/2023 12/05/2022, 100 11/2021, 11/21/2021, Additional history exists HbA1c 06/06/2023 12/05/2022, 10/0 11/2021, 11/21/2021, Additional history exists Albumin/Creatinine Ratio 06/09/2023 022, 04/05/2018, 09/25/2016 Diabetic Foot Exam 12/04/2023 12/03/2022, 0 05/26/2021, 12/01/2018, Additional history exists O2 ASSESSMENT COMPLETED IN PAST YEAR FOR COPD 10/14/2024 10/14/2023 CKD HGB USE SMARTSET 98176 10/15/202410/15, 05/13/2021, 06/24/2009 DTaP,Tdap,and Td Vaccines (3 [...] Not on filedocumented as of this encounter Procedures Procedure Name Priority Date/Time Associated Diagnosis Comments CBC Routine 10/15/2023 1:13 PM EST Chronic kidney disease, stage 3a (HCC) Numbness and tingling of left hand documented in this encounter Results * CBC (10/15/2023 1:13 PM EST) WBC 6.40 4.00 - 10.80 K/uL 10/15/2023 1:19 PM EST [facility] 5602 RBC 4.06 3.85 - 5.15 M/uL 10/15/2023 1:19 PM EST [facility] 5602 HGB 12.3 12.0 - 15.3 g/dL 10/15/2023 1:19 PM EST [facility] 56-02 HCT 39.7 36.0 - 45.2 % 10/15/2023 1:19 PM EST [facility] [place] 56-02 MCV 97.8 81.5 - 97.5 fL 10/15/2023 1:19 PM EST [facility] 56-02 MCH 30.3 27.0 - 34.0 pg 10/15/2023 1:19 PM EST [facility] 5602 MCHC 31.0 32.0 - 36.0 g/dL 10/15/2023 1:19 PM EST [facility] 56-02 RDW 14.5 11.5 - 15.5 % 10/15/2023 1:19 PM EST [facility] 56-02 PLT 252 140 - 400 K/uL 10/15/2023 1:19 PM EST [facility] 5602 MPV 8.7 6.6 - 11.1 fL 10/15/2023 1:19 PM EST [facility] 56-02 Blood Venous blood specimen / Unknown Venipuncture / Unknown 10/15/2023 1:13 PM EST 10/15/2023 1:15 PM EST Dari Santana DO LAB BLOOD ORDERABLES [facility] [place] [address] [place] [address] documented in this encounter Visit Diagnoses Diagnosis Type 2 diabetes mellitus with diabetic peripheral angiopathy without gangrene, unspecified whether intermediate teacher insulin use (HCC) HTN, goal below 130/80 Unspecified essential hypertension Dyslipidemia, goal LDL below 70 Other and unspecified hyperlipidemia Numbness and tingling of left hand Chronic kidney disease, stage 3a (HCC) Encounter for long-term (current) use of medications Encounter for long-term (current) use of other medications documented in this encounter Care Teams Senior Technical Manager Relationship Specialty Start Date End Date Dari Santana DO [address] [place] [address] PCP - General Family Medicine 10/13/11 documented as of this encounter"
--- OUTSIDE RECORDS SUMMARY | 2023-11-09 19:38 | External Medical Summary | Summary of Care ---
Author Name Unknown Organization [facility] Address [address] [place] [address] Phone [phone] Care Team Providers Care Machine I Trimmer Name Role Phone Dari Santana DO Primary Care Provider + [phone] Reason for Visit * Reason Comments Outpatient Testing Encounter Details Date Type Department Care Team (Late st Contact Info) Description 10/15/2023 1:30 PM EST Laboratory Laboratory [facility] [address] [place] [phone] [facility] Lab [facility] [address] [facility] [place] [address] Type 2 diabetes mellitus with diabetic peripheral angiopathy without gangrene, unspecified whether fci insulin use (HCC); HTN, goal below 130/80; Dyslipidemia, goal LDL below 70; Numbness and tingling of left hand; Chronic kidney disease, stage 3a ([facility]); Encounter for long-term (current) use [...] 11 01/03/2016 Active Blood Glucose Monitoring Suppl (froolyTOUCH ULTRA SYSTEM) W/DEVICE KITIndications:Leyla rlbj diabetes Use [...] Active HYDROcodone-Acetamin ophen 10-325 MG Oral TabletIndications:Ac [place] pain of left knee Take by mouth 1 Tablet every 8 hours as needed for Pain, Severe. 30 Tablet 0 11/26/2021 Active Additional Information Patient not taking.Reported on 10/14/2023 Nebulizer/Tubing/Lissy thpiece KitIndications:COPD, group C, by GOLD 2017 classification ([facility]) Use as directed with machine 1 Kit 0 11/26/2021 Active Compressor NebulizerIndications :COPD, group C, by GOLD 2017 classification ([facility]) Inhale via nebulizer . Use [...] COPD, group C, by GOLD 2017 classification ([facility]) Inhale 1 Capsule by mouth [...] needed (pain). 60 Tablet 1 10/14/2023 Active [employer] InternationalTouch Verio w/Device KitIndications:Type 2 diabetes mellitus with diabetic peripheral angiopathy without gangrene, unspecified whether long term care social worker insulin use (HCC) Use up to 4 times a day E11.9 1 Kit 0 10/14/2023 Active OneTouch Verio In Vitro Strip (Glucose Blood)Indications:Ty pe 2 diabetes mellitus with diabetic peripheral angiopathy without gangrene, unspecified whether fci insulin use (HCC) Use up to 4 [...] mRNA, LNP-s, No Pre serve, 2-Dose Series ([employer]) 08/06/2021,12/05/2020,11/14/2020 Pneumococcal Conjugate Vacc, 13 Valent (Prevnar) [...] Description 04/27/2024 9:10 AM EDT Office Visit [facility] [address] [place] [address] Dari Santana DO [address] [place], [place] [id number] Pending Results Name Type Priority Associated Diagnoses Date /Time HEMOGLOBIN A1C Lab Routine Type 2 diabetes mellitus with diabetic peripheral angiopathy without gangrene, unspecified whether long term care social worker insulin use (HCC) 10/15/2023 1:13 PM EST [...] of left hand 10/15/2023 1:13 PM EST CBC Lab Routine Chronic kidney disease, stage 3a [...] 1966 LUNG CANCER SCREENING - USE SMARTSET 45502 1998 Zoster Vaccines (1 of 2) 1998 Hepatitis B (1 of 3 - Risk 3-dose series) 2008 DXA Scan 03/21/2017 03/21/2014 COLONOSCOPY-EVERY 3 YRS AGES 18-100 06/05/2018 06/05/2015, 06/05/2015 DISCUSS TOBACCO CESSATION (REFER TO SMARTSET #3291) 08/04/2018 08/04/2017 (Course Completed) Depression Screening 12/25/2020 12/26/2019 B-12 05/13/2022 05/13/2021, 06/06/2019 CKD HGB USE SMARTSET 55379 05/13/2022 05/13/2021, CKD PHOS USE SMARTSET 39527 05/13/2022 05/13/2021 Diabetic Eye Exam 12/09/2022 12/09/2021, , 09/16/2018, Additional history exists COVID-19 Vaccine ( season) 2023 08/06/2021, 12/05/2020, 11/14/2020 GFR 06/06/2023 12/05/2022, 100 11/2021, 11/21/2021, Additional history exists HbA1c 06/06/2023 12/05/2022, 100 11/2021, 11/21/2021, Additional history exists Albumin/Creatinine Ratio 06/09/2023 022, 04/05/2018, 09/25/2016 Diabetic Foot Exam 12/04/2023 12/03/2022, 0 05/26/2021, 12/01/2018, Additional history exists O2 ASSESSMENT COMPLETED IN PAST YEAR FOR COPD 10/14/2024 10/14/2023 DTaP,Tdap,and Td Vaccines (3 - Td or [...] as of this encounter Visit Diagnoses Diagnosis Type 2 diabetes mellitus with diabetic peripheral angiopathy without gangrene, unspecified whether fci insulin use (HCC) HTN, goal below 130/80 Unspecified essential hypertension Dyslipidemia, goal LDL below 70 Other and unspecified hyperlipidemia Numbness and tingling of left hand Chronic kidney disease, stage 3a (HCC) Encounter for long-term (current) use of medications Encounter for long-term (current) use of other medications documented in this encounter Care Teams Machine I Trimmer Relationship Specialty Start Date End Date Dari Santana DO [address] [place] [address] PCP - General Family Medicine 10/13/11 documented as of this encounter
--- OUTSIDE RECORDS SUMMARY | 2023-11-09 19:38 | External Medical Summary | Summary of Care ---
Author Name Unknown Organization [facility] Address [address] [place] [address] Phone [phone] Care Team Providers Care Recruiter Specialist Name Role Phone Dari Santana DO Primary Care Provider [phone] Reason for Visit * Reason Onset Date Comments Re-Check Medication Administration 10/14/2023 Flu an d/or Pneumo Inj Encounter Details Date Type Department Care Team (Latest Contact Info) Description 10/14/2023 9:30 AM EST Office Visit [facility] [address] [place] [address] Dari Santana DO [address] [place] [address] HTN, goal below 130/80*; Anxiety; Vulvar itching; Left shoulder tendinitis; COPD, group C, by GOLD 2017 classification ([facility]); Type 2 diabetes mellitus with diabetic peripheral angiopathy without gangrene, unspecified whether termite inspector insulin use ([facility]); Morbid obesity with body mass index of 40.0-44.9 in adult ([facility]); Chronic kidney disease, stage 3a ([facility]); Tobacco use disorder; Dyslipidemia, goal LDL below 70; JACE on CPAP; Numbness and tingling of left hand; Pain of left upper extremity; Need for prophylactic vaccination and inoculation against influenza Allergies Active Allergy Reactions Criticality Noted Date Comments Coenzyme Q10 12/11/2021 Other reaction(s): Leg Cramps Simvastatin 12/09/2009 Myalgia:(thighs, shoulder) documented as of this encounter (statuses as of 10/14/2023) Medications Medication Sig Dispensed Refills Start Date End Date Status aspirin 81 MG chewable tabletIndications:H eart murmur Take 1 Tablet by mouth in the morning. with food.. 100 Tab 5 08/07/2015 Active Glucose Blood (ONETOUCH ULTRA BLUE) STRPIndications:Rustam derline diabetes Use as directed 2 times a day. Use up to four times a day as directed 100 Strip 11 01/03/2016 Active Blood Glucose Monitoring Suppl (HivelocityTOUCH ULTRA SYSTEM) W/DEVICE KITIndications:Bord fernanda diabetes Use [...] , group C, by GOLD 2017 classification ([facility]) Use as directed with machine 1 Kit 0 11/26/2021 Active Compressor NebulizerIndication s:COPD, group C, by GOLD 2017 classification ([facility]) Inhale via nebulizer . Use as directed. 1 Each 1 04/01/2022 Active predniSONE 10 MG Oral Tablet (Deltasone)Indicati ons:COPD with exacerbation (HCC) Take 5 tabs for 2 days, 4 tabs for 2 days, 3 tabs for 2 days, 2 tabs for 2 days 1 tab for 2 days 30 Tablet 1 08/10/2022 Active Pantoprazole Sodium 20 MG Oral Tablet Delayed Release (Protonix)Indicatio ns:Gastroesophageal reflux disease without esophagitis Take 1 Tablet by mouth in the morning. 30 minutes before the first meal of the day. Do not crush, split or chew the tablet. 90 Tablet 5 09/15/2022 Active Levalbuterol HCl 0.63 MG/3ML Inhalation Nebulization Solution (Xopenex) Inhale 3 mL via nebulizer every 4 hours as needed for Wheezing. 3 mL 12 11/04/2022 Active Spiriva HandiHaler 18 MCG Inhalation Capsule (tiotropium bromide)Indications :COPD, group C, by GOLD 2017 classification ([facility]) Inhale 1 Capsule by mouth in the [...] 01/28/2023 Active predniSONE 10 MG Oral Tablet (Deltasone)Indicati ons:Tendinitis of right foot Take 5 tabs for 2 days, 4 tabs for 2 days, 3 tabs for 2 days, 2 tabs for 2 days 1 tab for 2 days 30 Tablet 0 01/28/2023 Active metFORMIN HCl 500 MG Oral Tablet (Glucophage)Indicat ions:Type 2 diabetes mellitus without complication, without long-term current use of insulin ([facility]) TAKE 1 TABLET BY MOUTH TWICE A DAY WITH BREAKFAST AND DINNER 180 Tablet 3 02/25/2023 Active Lisinopril-hydroCHL OROthiazide 10-12.5 MG Oral TabletIndications:T ype 2 diabetes mellitus without complication, without long-term current use of insulin ([facility]) TAKE 1 TABLET BY MOUTH EVERY DAY [...] diabetic peripheral angiopathy without gangrene, unspecified whether usp insulin use (HCC) Use up to 4 times a day E11.9 1 Kit 0 10/14/2023 Active OneTouch Verio In Vitro Strip (Glucose Blood)Indications:T ype 2 diabetes mellitus with diabetic peripheral angiopathy without gangrene, unspecified whether termite inspector insulin use (HCC) Use up to 4 times a day E11.9 100 Strip 11 10/14/2023 Active Triamcinolone Acetonide 0.1 % External Ointment (Aristocort)Indicat ions:Vulvar itching Apply topically to affected area 2 times a day. Till better then as needed 30 g 0 06/23/2023 10/14/19 24 Discontinu ed(Refill) traMADol HCl 50 MG Oral Tablet (Ultram)Indications :Left shoulder tendinitis Take 1 Tablet by mouth every 6 hours as needed (pain). 60 Tablet 1 07/23/2023 10/14/19 24 Discontinu ed(Refill) ALPRAZolam 0.25 MG Oral Tablet (xaNAX)Indications: Anxiety TAKE 1 TABLET BY MOUTH 3 TIMES A DAY NEEDED FOR ANXIETY 90 Tablet 0 09/13/2023 10/14/19 24 Discontinu ed(Refill) documented as of this encounter (statuses as of 10/14/2023) Active Problems Problem Noted Date Diagnosed Date [...] as of this encounter (statuses as of 10/14/2023) Resolved Problems Problem Noted Date Diagnosed Date [...] as of this encounter (statuses as of 10/14/2023) Immunizations Name Administration Dates Next Due COVID-19 mRNA, LNP-s, No Pre serve, 2-Dose Series (myBestHelper) 08/06/2021,12/05/2020,11/14/2020 Pneumococcal Conjugate Vacc, 13 Valent (Prevnar) [...] on file documented as of this encounter Last Filed Vital Signs Vital Sign Reading Time Taken Comments Blood Pressure 114/60 10/14/2023 9:29 AM EST Pulse 88 10/14/2023 9:29 AM EST Temperature 36.3 C (97.3 F) 10/14/2023 9:29 AM ES T Respiratory Rate 16 10/14/2023 9:29 AM EST Oxygen Saturation 96% 10/14/2023 9:29 AM EST Inhaled Oxygen Concentration - - Weight 114 kg (251 lb 4.8 oz) 10/14/2023 9:29 AM EST Height - - Body Mass Index 40.56 12/03/2022 8:13 AM EDT documented in this encounter Progress Notes * Dari Santana, DO - 10/14/2023 9:36 AM EST Subjective: Tamiko Zabala is a 73 year old female. Chief Complaint Patient presents with Re-Check HPI: 73 year old female with known hx of Type 2 diabetes, COPD, CRI, HTN, JACE on CPAP in which she wears nightly, ongoing tobacco use, and on medications as listed. Since her last visit she did have an echo to follow up on mild LVH the findings are as below . Interpretation Summary The examination is limited quality but adequate for evaluation of the referral indication. The LV wall thickness is moderately increased (concentric). The left ventricular wall motion is normal. The qualitative LV ejection fraction is 60-64% (normal). The left ventricular diastolic function is mildly abnormal (grade I). Mild aortic valve sclerosis is present. Aortic stenosis is absent. Mild aortic valve regurgitation is present. L ring finger, feels like a trigger finger. At times can get stuck and has pain associated with it. Numbness in the other fingers and at times pain in the L hand and wakes her up at night. Will get some referred pain in the L hand as well. 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 let She saw [facility] and was given triamcinolone ointment as needed for vaginal itching. Would likea refill. Her weight is stable. Talked about lung cancer screening and she declines for now. Talked about colonoscopy and wishes towait as well. PHM: Patient Active Problem List Diagnosis Code ADVANCE DIRECTIVE INFORMATION Tobacco use disorder F17.200 Dyslipidemia, goal LDL below 70 E78.5 JACE on CPAP G47.33 Anxiety F41.9 Statin intolerance Z78.9 HTN, goal below 130/80 I10 Type 2 diabetes mellitus with diabetic peripheral angiopathy without gangrene ([facility]) E11.51 Morbid obesity with body mass index of 40.0-44.9 in adult ([facility]) E66.01, Z68.41 COPD with exacerbation ([facility]) J44.1 COPD, group C, by GOLD 2017 classification ([facility]) J44.9 Chronic kidney disease, stage 3a N18.31 Current Outpatient Medications Medication Sig Dispense Refill aspirin 81 MG chewable tablet Take 1 Tablet by mouth in the morning. with food.. 100 Tab 5 Pantoprazole Sodium 20 MG Oral Tablet Delayed Release (Protonix) Take 1 Tablet by mouth in the morning. 30 minutes before the first meal of the day. Do not crush, split or chew the tablet. 90 Tablet 5 Levalbuterol HCl 0.63 MG/3ML Inhalation Nebulization Solution (Xopenex) Inhale 3 mL via nebulizer every 4 hours as needed for Wheezing. 3 mL 12 Spiriva HandiHaler 18 MCG Inhalation Capsule (tiotropium bromide) Inhale 1 Capsule by mouth in the morning. For inhaler only, do not swallow.. 30 Capsule 11 Atorvastatin Calcium 20 MG Oral Tablet (Lipitor) TAKE 1 TABLET BY MOUTH EVERY DAY IN THE MORNING 90Tablet 2 metFORMIN HCl 500 MG Oral Tablet (Glucophage) TAKE 1 TABLET BY MOUTH TWICE A DAY WITH BREAKFAST ANDDINNER 180 Tablet 3 Lisinopril-hydroCHLOROthiazide 10-12.5 MG Oral Tablet TAKE 1 TABLET BY MOUTH EVERY DAY 90 Tablet 1 ALPRAZolam 0.25 MG Oral Tablet (xaNAX) TAKE 1 TABLET BY MOUTH 3 TIMES A DAY NEEDED FOR ANXIETY 90 Tablet 0 Triamcinolone Acetonide 0.1 % External Ointment (Aristocort) Apply topically to affected area 2 times a day. Till better then as needed 30 g 0 traMADol HCl 50 MG Oral Tablet (Ultram) Take 1 Tablet by mouth every 6 hours as needed (pain). 60 Tablet 1 Glucose Blood (ONETOUCH ULTRA BLUE) STRP Use as directed 2 times a day. Use up to four times a day as directed 100 Strip 11 Blood Glucose Monitoring Suppl (ONETOUCH ULTRA SYSTEM) W/DEVICE KIT Use as directed 2 times a day. 1 Kit 0 HivelocityTOUCH ULTRASOFT LANCETS [facility] Use as directed 2 times a day. 1 Box Dosing Unit 11 zoster vac recomb adjuvanted (SHINGRIX) 50 MCG/0.5ML injection Inject 0.5 mL into a large muscle now and repeat dose in 60 to 180 days 1 Each 1 HYDROcodone-Acetaminophen 10-325 MG Oral Tablet Take by mouth 1 Tablet every 8 hours as needed for Pain, Severe. (Patient not taking: Reported on 10/14/2023) 30 Tablet 0 Nebulizer/Tubing/Mouthpiece Kit Use as directed with machine 1 Kit 0 Compressor Nebulizer Inhale via nebulizer . Use as directed. 1 Each 1 predniSONE 10 MG Oral Tablet (Deltasone) Take 5 tabs for 2 days, 4 tabs for 2 days, 3 tabs for 2 days, 2 tabs for 2 days 1 tab for 2 days 30 Tablet 1 predniSONE 10 MG Oral Tablet (Deltasone) Take 5 tabs for 2 days, 4 tabs for 2 days, 3 tabs for 2 days, 2 tabs for 2 days 1 tab for 2 days 30 Tablet 0 Azithromycin 250 MG Oral Tablet (Zithromax Z-Tommy) Take two tablets by mouth on first day, then 1 tablet daily until gone 6 Tablet 0 predniSONE 10 MG Oral Tablet (Deltasone) Take 5 tabs for 2 days, 4 tabs for 2 days, 3 tabs for 2 days, 2 tabs for 2 days 1 tab for 2 days 30 Tablet 0 No current facility-administered medications for this visit. Review of patient's allergies indicates: Allergen Reactions Co Q 10 [Coenzyme Q10] Other reaction(s): Leg Cramps Simvastatin Myalgia:(thighs, shoulder) Objective: BP 114/60 | Pulse 88 | Temp 36.3 C (97.3 F) | Resp 16 | Wt 114 kg (251 lb 4.8 oz) | LMP 11/03/2000 | SpO2 96% | BMI 40.56 kg/m | BSA 2.3 m Physical Exam: General: alert, healthy, and no distress Heart: regular rate & rhythm, no murmur, and no gallops Lungs: coarse sounds heard, expiratory wheezes bilaterally Abdomen: abdomen soft, non-tender, obese, normal bowel sounds, and no masses or organomegaly Extremities: no edema. Some joint swelling in her hands indicative of arthritis. Possible trigger finger in the Ring finger. ASSESSMENT/PLAN: HTN, goal below 130/80 (Primary) - BASIC METABOLIC PANEL; Future; Expected date: 10/14/2023 Anxiety - ALPRAZolam 0.25 MG Oral Tablet (xaNAX); TAKE 1 TABLET BY MOUTH 3 TIMES A DAY NEEDED FOR ANXIETY Vulvar itching - Triamcinolone Acetonide 0.1 % External Ointment (Aristocort); Apply topically to affected area 2 times a day. Till better then as needed Left shoulder tendinitis - traMADol HCl 50 MG Oral Tablet (Ultram); Take 1 Tablet by mouth every 6 hours as needed (pain). COPD, group C, by GOLD 2017 classification (HCC) Type 2 diabetes mellitus with diabetic peripheral angiopathy without gangrene, unspecified whether termite inspector insulin use ([facility]) - HEMOGLOBIN A1C; Future; Expected date: 10/14/2023 - OneTouch Verio w/Device Kit; Use up to 4 times a day E11.9 - OneTouch Verio In Vitro Strip (Glucose Blood); Use up to 4 times a day E11.9 Morbid obesity with body mass index of 40.0-44.9 in adult ([facility]) Chronic kidney disease, stage 3a ([facility]) - CBC; Future; Expected date: 10/14/2023 - IRON SCREEN, INCLUDING TIBC; Future; Expected date: 10/14/2023 - ALBUMIN / CREATININE RATIO, URINE; Future; Expected date: 10/14/2023 Tobacco use disorder Dyslipidemia, goal LDL below 70 - LIPID PANEL WITH DIRECT LDL IF TG IS HIGH; Future; Expected date: 10/14/2023 - HEPATIC FUNCTION PANEL; Future; Expected date: 10/14/2023 JACE on CPAP Numbness and tingling of left hand - VITAMIN B12; Future; Expected date: 10/14/2023 - XR C SPINE 4-5 VIEWS - XR HAND 3 OR MORE VIEWS - CBC; Future; Expected date: 10/14/2023 - IRON SCREEN, INCLUDING TIBC; Future; Expected date: 10/14/2023 Pain of left upper extremity - XR HAND 3 OR MORE VIEWS Need for prophylactic vaccination and inoculation against influenza - INFLUENZA VACC, QUAD, HIGH DOSE (FLUZONE HD) I spent a total of 40-54 minutes (exact time 40 mins) on the date of service in preparation, delivery, and documentation of the care provided to Tamiko Zabala excluding any time spent in the performance of separately billed services. Follow Up: Return in about 4 months (around 02/12/2024) for Fasting Labs Soon. | For: Fasting Labs Soon Dari Santana DO documented in this encounter Nursing Notes * Aixa Jiménez LPN - 10/14/2023 9:29 AM EST Return visit Having troubles with her left hand - fingers are locking & have some numbness documented in this encounter Plan of Treatment Upcoming Encounters Date Type Department Care Team (Late st Contact Info) Description 10/15/2023 1:30 PM EST Laboratory [facility] [place] [address] [place] [id number] [place] [address] [place] [address] 04/27/2024 9:10 AM EDT Office Visit [facility] [address] [place] [id number] Dari Santana DO [address] [place] [address] Scheduled Orders Name Type Priority Associated Diagnoses Orde r Schedule HEMOGLOBIN A1C Lab Routine Type 2 diabetes mellitus with diabetic peripheral angiopathy without gangrene, unspecified whether termite inspector insulin use (HCC) Expected: 10/14/2023 (Approximate), Expires: 10/13/2024 BASIC METABOLIC PANEL Lab Routine HTN, goal below 130/80 Expected: 10/14/2023 (Approximate), Expires: 10/13/2024 LIPID PANEL WITH DIRECT LDL IF TG IS HIGH Lab Routine Dyslipidemia, goal LDL below 70 Expected: 10/14/2023, Expires: 10/14/2024 HEPATIC FUNCTION PANEL Lab Routine Dyslipidemia, goal LDL below 70 Expected: 10/14/2023 (Approximate), Expires: 10/13/2024 VITAMIN B12 Lab Routine Numbness and tingling of left hand Expected: 10/14/2023 (Approximate), Expires: 10/13/2024 XR C SPINE 4-5 VIEWS Medical Imaging Routine Numbness and tingling of left hand Ordered: 10/14/2023 XR HAND 3 OR MORE VIEWS Medical Imaging Routine Numbness and tingling of left hand Pain of left upper extremity Ordered: 10/14/2023 CBC Lab Routine Chronic kidney disease, stage 3a (HCC) Numbness and tingling of left hand Expected: 10/14/2023 (Approximate), Expires: 10/13/2024 IRON SCREEN, INCLUDING TIBC Lab Routine Chronic kidney disease, stage 3a (HCC) Numbness and tingling of left hand Expected: 10/14/2023 (Approximate), Expires: 10/13/2024 ALBUMIN / CREATININE RATIO, URINE Lab Routine Chronic kidney disease, stage 3a (HCC) Expected: 10/14/2023 (Approximate), Expires: 10/13/2024 Health Maintenance Due Date Last Done Comments Alpha-1 Antitrypsin 1966 Hepatitis C Screening 1968 LUNG CANCER SCREENING - USE SMARTSET 24924 1998 Zoster Vaccines (1 of 2) 1998 Hepatitis B (1 of 3 - Risk 3-dose series) 2008 DXA Scan 03/21/2017 03/21/2014 COLONOSCOPY-EVERY 3 YRS AGES 18-100 06/05/2018 06/05/2015, 06/05/2015 DISCUSS TOBACCO CESSATION (REFER TO SMARTSET #3291) 08/04/2018 08/04/2017 (Course Completed) Depression Screening 12/25/2020 12/26/2019 B-12 05/13/2022 05/13/2021, 06/06/2019 CKD HGB USE SMARTSET 17152 05/13/2022 05/13/2021, CKD PHOS USE SMARTSET 25756 05/13/2022 05/13/2021 Diabetic Eye Exam 12/09/2022 12/09/2021, [...] as of this encounter Visit Diagnoses Diagnosis HTN, goal below 130/80- Primary Unspecified essential hypertension Anxiety Anxiety state, unspecified Vulvar itching Pruritus of genital organs Left shoulder tendinitis COPD, group C, by GOLD 2017 classification ([facility]) Type 2 diabetes mellitus with diabetic peripheral angiopathy without gangrene, unspecified whether termite inspector insulin use ([facility]) Morbid obesity with body mass index of 40.0-44.9 in adult ([facility]) Morbid obesity Chronic kidney disease, stage 3a ([facility]) Tobacco use disorder Dyslipidemia, goal LDL below 70 Other and unspecified hyperlipidemia JACE on CPAP Obstructive sleep apnea (adult) (pediatric) Numbness and tingling of left hand Pain of left upper extremity Need for prophylactic vaccination and inoculation against influenza documented in this encounter Care Teams Recruiter Specialist Relationship Specialty Start Date End Date Dari Santana DO [address] [place] [address] PCP - General Family Medicine 10/13/11 documented as of this encounter"
--- OUTSIDE RECORDS SUMMARY | 2023-11-09 19:38 | External Medical Summary ---
Author Name Unknown Address Unknown Organization [id number]:[facility]ORY [facility] [place] - [address] [facility] [address] Laboratory Report Ordering Provider Test Date Status TIMUR MULTANI 10/15/2023 13:13:57 Final Observation Date Value Abnormality Reference (Units ) Status HbA1C 10/15/2023 13:13:57 6.4 Above high normal 4. 0-5.6 (%) Final The use of HbA1c to monitor glycemic status is based on normal hemoglobin and HbA composition. This test should not be used in patients with abnormal hemoglobin that affects the half life of the red blood cell or the in vivo glycation rates. Glucose, estimated average 10/15/2023 13:13:57 137 Above high normal <126 (mg/dL) Lane colón Performing Location [facility] [place] [facility] [address] [facility] [address]
--- OUTSIDE RECORDS SUMMARY | 2023-11-09 19:38 | External Medical Summary ---
Author Name Unknown Address Unknown Organization [id number][place] [place] [address] [place] [address] Laboratory Report Ordering Provider Test Date Status TIMUR MULTANI 10/15/2023 13:16:36 Final Normal: <30 mg/g creatinine< br/>High: 30-300 mg/g creatinine
Very High: >300 mg/g creatinine
Nephrotic: >2200 mg/g creatinine Observation Date Value Abnormality Reference (Units ) Status Albumin, Urine 10/15/2023 13:16:36 1.62 (mg/dL) Final Creatinine, Urine 10/15/2023 13:16:36 106 (mg/dL) Final Albumin/Creatinine [Mass Ratio] in Urine 10/15/2023 13:16:36 15 <30 (mg/g Creat) Final Performing Location [facility] [place] [address] [place] [address]
--- OUTSIDE RECORDS SUMMARY | 2023-11-09 19:38 | External Medical Summary ---
Author Name Unknown Address Unknown Organization [id number]:[facility] [place] [address] [place] [address] Laboratory Report Ordering Provider Test Date Status TIMUR MULTANI 10/15/2023 13:13:57 Final Observation Date Value Abnormality Reference (Units ) Status Vitamin B12 10/15/2023 13:13:57 554 [id number] (pg/mL) Final Performing Location LABORATORY C - [address] [place] [address]
--- OUTSIDE RECORDS SUMMARY | 2023-11-09 19:38 | External Medical Summary ---
Author Name Unknown Address Unknown Organization K09:[facility]ORY [place] [address] Laboratory Report Ordering Provider Test Date Status TIMUR MULTANI 10/15/2023 13:13:57 Final Observation Date Value Abnormality Reference (Units ) Status Albumin 10/15/2023 13:13:57 4.1 3.8-5.0 (g/dL) Final AST (Aspartate aminotransferase) 10/15/2023 13:13:57 15 10-35 (U/L) Final Alk Phos 10/15/2023 13:13:57 99 35-130 (U/L) Final ALT (Alanine aminotransferase) 10/15/2023 13:13:57 14 10-35 (U/L) Final Bilirubin, Total 10/15/2023 13:13:57 0.3 <=1.2 (mg/dL) Final Bilirubin, Direct 10/15/2023 13:13:57 <0.2 0.0-0.3 (mg/dL) Final Protein 10/15/2023 13:13:57 6.4 6.0-8.3 (g/dL) Final Performing Location [facility] [place] [address]
--- OUTSIDE RECORDS SUMMARY | 2023-11-09 19:38 | External Medical Summary | Summary of Care ---
Author Name Unknown Organization [facility] Address [address] [place] [address] Phone [phone] Care Team Providers Care Inspector Rag Sorting Name Role Phone Nerissa Santana DO Primary Care Provider + [phone] Reason for Visit * Reason Onset Date Comments Medication Refill 10/14/2023 Encounter Details Date Type Department Care Team (Late st Contact Info) Description 10/14/2023 Refill [facility] [address] [place] [address] Nerissa Santana DO [address] [place] [address] Encounter for long-term (current) use of medications*; Gastroesophageal reflux disease without esophagitis Allergies Active Allergy Reactions Criticality Noted Date [...] Glucose Monitoring Suppl (ONETOUCH ULTRA SYSTEM) W/DEVICE KITIndications:Samuel michael diabetes Use as directed 2 times a day. 1 Kit 0 01/03/2016 Active ONETOUCH ULTRASOFT LANCETS MISCIndications:Rustam scott diabetes Use as directed 2 times a [...] , group C, by GOLD 2017 classification ([facility]) Use as directed with machine 1 Kit 0 11/26/2021 Active Compressor NebulizerIndication s:COPD, group C, by GOLD 2017 classification ([facility]) Inhale via nebulizer . Use as [...] :COPD, group C, by GOLD 2017 classification ([facility]) Inhale 1 Capsule by mouth in [...] diabetic peripheral angiopathy without gangrene, unspecified whether long-term insulin use (HCC) Use up to 4 times a day E11.9 1 Kit 0 10/14/2023 Active OneTouch Verio In Vitro Strip (Glucose Blood)Indications:T ype 2 diabetes mellitus with diabetic peripheral angiopathy without gangrene, unspecified whether terminal operator insulin use (HCC) Use up to 4 times a day E11.9 100 Strip 11 10/14/2023 Active Pantoprazole Sodium 20 MG Oral Tablet Delayed Release (Protonix)Indicatio ns:Gastroesophageal reflux disease without esophagitis Take 1 Tablet by mouth in the morning. 30 minutes before the first meal of the day. Do not crush, split or chew the tablet. 90 Tablet 3 10/15/2023 Active Pantoprazole Sodium 20 MG Oral Tablet Delayed Release (Protonix)Indicatio ns:Gastroesophageal reflux disease without esophagitis Take 1 Tablet by mouth in the morning. 30 minutes before the first meal of the day. Do not crush, split or chew the tablet. 90 Tablet 5 09/15/2022 10/14/19 24 Discontinu ed(Refill) documented as of [...] encounter Miscellaneous Notes * Telephone Encounter - Muna Hadley [facility] - 10/15/2023 10:37 AM EST Signed Prescriptions: Disp Refills Pantoprazole Sodium 20 MG Oral Tablet Nany*90 Tab*3 Sig: Take 1 Tablet by mouth in the morning. 30 minutes before the first meal of the day. Do not crush, split or chew the tablet.Authorizing Provider: NERISSA SANTANA User: MUNA HADLEY documented in this encounter Plan of Treatment Upcoming Encounters Date Type Department Care Team (Late st Contact Info) Description 10/15/2023 1:30 PM EST Laboratory [facility] [address] [phone] [facility] [address] [place] [address] 04/27/2024 9:10 AM EDT Office Visit [facility] [address] [facility] [phone] Nerissa Santana DO [address] [facility] [address] Scheduled Orders Name Type Priority Associated Diagnoses Orde r Schedule MAGNESIUM Lab Routine Encounter for long-term (current) use of medications Expected: 10/15/2023 (Approximate), Expires: 10/15/2024 Health Maintenance Due Date Last Done Comments Alpha-1 Antitrypsin 1968 Hepatitis C Screening 1966 LUNG CANCER SCREENING - USE SMARTSET 64416 1998 Zoster Vaccines (1 of 2) 1998 Hepatitis B (1 of 3 - Risk 3-dose series) 2008 DXA Scan 03/21/2017 03/21/2014 COLONOSCOPY-EVERY 3 YRS AGES 18-100 06/05/2018 06/05/2015, 06/05/2015 DISCUSS TOBACCO CESSATION (REFER TO SMARTSET #3291) 08/04/2018 08/04/2017 (Course Completed) Depression Screening 12/25/2020 12/26/2019 B-12 05/13/2022 05/13/2021, 06/06/2019 CKD HGB USE SMARTSET 18585 05/13/2022 05/13/2021, CKD PHOS USE SMARTSET 29423 05/13/2022 05/13/2021 Diabetic Eye Exam 12/09/2022 12/09/2021, [...] as of this encounter Visit Diagnoses Diagnosis Encounter for long-term (current) use of medications- Primary Encounter for long-term (current) use of other medications Gastroesophageal reflux disease without esophagitis Esophageal reflux documented in this encounter Care Teams Inspector Rag Sorting Relationship Specialty Start Date End Date Nerissa Santana DO [address] [place] [address] PCP - General Family Medicine 10/13/11 documented as of this encounter
--- OUTSIDE RECORDS SUMMARY | 2023-11-09 19:38 | External Medical Summary ---
Author Name Unknown Address Unknown Organization [id number][place] [place] [address] [place] [address] Laboratory Report Ordering Provider Test Date Status TIMUR MULTANI 10/15/2023 13:13:57 Final Observation Date Value Abnormality Reference (Units ) Status Triglyceride 10/15/2023 13:13:57 198 Above high normal <=174 (mg/dL) Final Triglyceride Reference Range s (mg/dL):
<150 Acceptable
150-174 Borderline high
175-499 High
>=500 Very high Cholesterol 10/15/2023 13:13:57 152 <200 (mg /dL) Final Total Cholesterol Reference Ranges (mg/dL):
<200 Desirable
200-239 Borderline high
>=240 High HDL 10/15/2023 13:13:57 52 >49 (mg/dL ) Final HDL Cholesterol Reference Ra nges (mg/dL):
>=60 High (Desirable)
<50 Low (Undesirable) For Females
<40 Low (Undesirable) For Males NON-HDL CHOLESTEROL 10/15/2023 13:13:57 100 <=159 (mg/dL) Final Non-HDL Cholesterol Referenc e Range (mg/dL):
<100 Target level for high risk ASCVD patient
<130 Optimal for general population
130-159 Near optimal for general population
160-189 Borderline High
190-219 High
>=220 Very High Performing Location [facility] [place] [address] [place] [address]
--- OUTSIDE RECORDS SUMMARY | 2023-11-09 19:38 | External Medical Summary ---
Author Name Unknown Address Unknown Organization K01:[facility] [place] [address] [place] [address] Laboratory Report Ordering Provider Test Date Status TIMUR MULTANI 10/15/2023 13:13:57 Final Observation Date Value Abnormality Reference (Units ) Status Iron 10/15/2023 13:13:57 63 33-151 (ug /dL) Final Iron-binding capacity 10/15/2023 13:13:57 292 250-425 (ug/dL) Final Transferrin Sat % 10/15/2023 13:13:57 22 15 -55 (%) Final Performing Location [facility] [place] - [address] [place] [address]
--- OUTSIDE RECORDS SUMMARY | 2023-11-09 19:38 | External Medical Summary ---
Author Name Unknown Address Unknown Organization K09:[facility]ORY [place] [address] Laboratory Report Ordering Provider Test Date Status TIMUR MULTANI 10/15/2023 13:13:57 Final Observation Date Value Abnormality Reference (Units ) Status WBC, Total 10/15/2023 13:13:57 6.40 4.00-10.8 0 (K/uL) Final RBC 10/15/2023 13:13:57 4.06 3.85-5.15 (M/uL) Final Hemoglobin 10/15/2023 13:13:57 12.3 12.0-15.3 (g/dL) Final HCT 10/15/2023 13:13:57 39.7 36.0-45.2 (%) Final MCV 10/15/2023 13:13:57 97.8 81.5-97.5 (fL) Final MCH 10/15/2023 13:13:57 30.3 27.0-34.0 (pg) Final MCHC 10/15/2023 13:13:57 31.0 32.0-36.0 (g/dL) Final RDW 10/15/2023 13:13:57 14.5 11.5-15.5 (%) Final Platelets 10/15/2023 13:13:57 252 140-400 (K /uL) Final MPV 10/15/2023 13:13:57 8.7 6.6-11.1 ( fL) Final Performing Location [facility] [place] [address]
--- OUTSIDE RECORDS SUMMARY | 2023-11-09 19:38 | External Medical Summary ---
Author Name Unknown Address Unknown Organization K01:[facility]ATORY [facility] [place] - [address] [place] [address] Laboratory Report Ordering Provider Test Date Status NERISSATIMUR 10/15/2023 13:13:57 Final Observation Date Value Abnormality Reference (Units ) Status LDL, (direct) 10/15/2023 13:13:57 75 <=129 (mg/dL) Final LDL Cholesterol Reference Ra nges (mg/dL):
<70 Target level for high risk ASCVD patient
<100 Optimal for general population
100-129 Near optimal for general population
130-159 Borderline high
160-189 High
>=190 Very high Performing Location LABORATORY [facility] - [address] [place] [address]
--- OUTSIDE RECORDS SUMMARY | 2023-11-09 19:38 | External Medical Summary ---
Author Name Unknown Address Unknown Organization K09:[facility]ATORY [place] [address] Laboratory Report Ordering Provider Test Date Status TIMUR MULTANI 10/15/2023 13:13:57 Final Observation Date Value Abnormality Reference (Units ) Status BUN 10/15/2023 13:13:57 39 Above high normal 6-20 (mg/dL) Final Creatinine 10/15/2023 13:13:57 1.4 Above high normal 0.5-1.0 (mg/dL) Final Glomerular filtration rate/1.73 sq M.predicted [Volume Rate/Area] in Serum, Plasma or Blood by Creatinine-based formula (CKD-EPI) 10/15/2023 13:13:57 39 Below low normal >=60 (mL/min) Final eGFR is calculated based on the CKD-EPI 2020 equation SODIUM 10/15/2023 13:13:57 143 135-146 (m mol/L) Final Potassium 10/15/2023 13:13:57 5.4 Above high normal 3. 5-5.1 (mmol/L) Final Cl 10/15/2023 13:13:57 105 98-107 (mm ol/L) Final CO2 10/15/2023 13:13:57 25 22-32 (mmo l/L) Final Anion gap 10/15/2023 13:13:57 13 7-15 (mmol /L) Final Glucose 10/15/2023 13:13:57 129 Above high normal 70 -120 (mg/dL) Final Calcium 10/15/2023 13:13:57 9.9 8.4-10.2 ( mg/dL) Final Performing Location LAB[facility]ATORY [place] [address]
--- OUTSIDE RECORDS SUMMARY | 2023-11-09 19:38 | External Medical Summary ---
Author Name Unknown Address Unknown Organization K09:[facility] [place] [address] Laboratory Report Ordering Provider Test Date Status BRADY SMILEY 10/15/2023 13:13:57 Final Observation Date Value Abnormality Reference (Units ) Status Magnesium 10/15/2023 13:13:57 2.1 1.5-2.6 (m g/dL) Final Performing Location [facility] [place] [address]
--- OUTSIDE RECORDS SUMMARY | 2023-11-09 19:39 | External Medical Summary | Summary of Care ---
Author Name Unknown Organization [facility] Address [address] [place] [address] Phone [phone] Care Team Providers Care Automatic Pinsetter Adjuster Name Role Phone Nerissa Santana DO Primary Care Provider [phone] Reason for Visit * Reason Onset Date Comments Medication Refill 07/22/2023 Encounter Details Date Type Department Care Team (Late st Contact Info) Description 07/22/2023 Refill [facility] [address] [place] [address] Nerissa Santana DO [address] [place] [address] Left shoulder tendinitis; Anxiety Allergies Active Allergy Reactions Criticality Noted Date Comments Coenzyme Q10 12/11/2021 Other reaction(s): Leg Cramps Simvastatin 12/09/2009 Myalgia:(thighs, shoulder) documented as of this encounter (statuses as of 07/23/2023) Medications Medication Sig Dispensed Refills Start Date [...] Pain, Severe. 30 Tablet 0 11/26/2021 Active Nebulizer/Tubing/Mo uthpiece KitIndications:COPD , group C, by GOLD 2017 classification ([facility]) Use as directed with machine 1 Kit 0 11/26/2021 Active Compressor NebulizerIndication s:COPD, group C, by GOLD 2017 classification ([facility]) Inhale via nebulizer . Use as directed. 1 Each 1 04/01/2022 Active predniSONE 10 MG Oral Tablet (Deltasone)Indicati ons:COPD with exacerbation ([facility]) Take 5 tabs for 2 days, 4 [...] group C, by GOLD 2017 classification ([facility]) Inhale 1 Capsule by mouth in the [...] EVERY DAY 90 Tablet 1 06/18/2023 Active Triamcinolone Acetonide 0.1 % External Ointment (Aristocort)Indicat ions:Vulvar itching Apply topically to affected area 2 times a day. Till better then as needed 30 g 0 06/23/2023 Active traMADol HCl 50 MG Oral Tablet (Ultram)Indications :Left shoulder tendinitis Take 1 Tablet by mouth every 6 hours as needed (pain). 60 Tablet 1 07/23/2023 Active ALPRAZolam 0.25 MG Oral Tablet (xaNAX)Indications: Anxiety TAKE 1 TABLET BY MOUTH 3 TIMES A DAY NEEDED FOR ANXIETY 90 Tablet 0 07/23/2023 Active traMADol HCl 50 MG Oral Tablet (Ultram)Indications :Left shoulder tendinitis Take 1 Tablet by mouth every 6 hours as needed (pain). 60 Tablet 1 06/15/2023 3 Discontinue d(Refill) ALPRAZolam 0.25 MG Oral Tablet (xaNAX)Indications: Anxiety TAKE 1 TABLET BY MOUTH 3 TIMES A DAY NEEDED FOR ANXIETY 90 Tablet 0 06/15/2023 3 Discontinue d(Refill) documented as of this encounter (statuses as of 07/23/2023) Active Problems Problem Noted Date Diagnosed Date [...] as of this encounter (statuses as of 07/23/2023) Resolved Problems Problem Noted Date Diagnosed Date [...] as of this encounter (statuses as of 07/23/2023) Immunizations Name Administration Dates Next Due COVID-19 mRNA, LNP-s, No Pre serve, 2-Dose Series (Startup Threads) 08/06/2021,12/05/2020,11/14/2020 Pneumococcal Conjugate Vacc, 13 Valent (Prevnar) 08/13/2016 Pneumococcal Polysaccharide PPV23 (Pneumovax) 07/05/2015 SEASONAL INFLUENZA, PF, 6 M & Above, IM , (FLULAVAL or FLUZONE) 06/23/2019,08/04/2017 Season Influenza, Quad, PF, Adjuvanted, 65+ Yrs, IM (FLUAD) 07/09/2020 Seasonal Influenza, Quadriva lent Hd (Fluzone Hd) 06/03/2022,05/26/2021 Seasonal Influenza, Quadriva lent, No Preserve, IM [...] Telephone Encounter - Nerissa Santana DO - 07/23/2023 1:18 PM ESTSigned Prescriptions: Disp Refills traMADol HCl 50 MG Oral Tablet (Ultram) 60 Tab*1 Sig: Take 1 Tablet by mouth every 6 hours as needed (pain). Authorizing Provider: NERISSA SANTANA ALPRAZolam 0.25 MG Oral Tablet (xaNAX) 90 Tab*0 Sig: TAKE 1 TABLET BY MOUTH 3 TIMES A DAY NEEDED FOR ANXIETY Authorizing Provider: NERISSA SANTANA ------- * Telephone Encounter - Ev Cohen [facility] - 07/23/2023 8:11 AM ESTPending Prescriptions: Disp Refills traMADol HCl 50 MG Oral Tablet (Ultram) 60 Tab*1 Sig: Take 1 Tablet by mouth every 6 hours as needed (pain). ALPRAZolam 0.25 MG Oral Tablet (xaNAX) 90 Tab*0 Sig: TAKE 1 TABLET BY MOUTH 3 TIMES A DAY NEEDED FOR ANXIETY * Telephone Encounter - Ev Cohen [facility] - 07/23/2023 8:11 AM EST I have reviewed the patients controlled substance dispensing history in the Prescription Drug Monitoring Program in compliance with the [facility] regulations before prescribing a controlled substance. PDMP checked on 07/23/2023. Pending Prescriptions: Disp Refills traMADol HCl 50 MG Oral Tablet (Ultram) 60 Tab*1 Sig: Take 1 Tablet by mouth every 6 hours as needed (pain). ALPRAZolam 0.25 MG Oral Tablet (xaNAX) 90 Tab*0 Sig: TAKE 1 TABLET BY MOUTH 3 TIMES A DAY NEEDED FOR ANXIETY Last Visit: 12/03/2022 (in office), Visit date not found (telemedicine) Next Visit: 08/17/2023 Date medication was last filled: 07/02/23 Date medication is due for refill: 07/16/23 Pharmacy: [id number] [address] [facility] Is this request for a controlled substance? Yes and Urine Drug Screen Not completed Toxicology results: No results found for this or any previous visit. Please approve if appropriate. Thank You, Ev Cohen [facility] Clinical Pharmacist [facility] ([facility]) (formerly Telepharmacy) [phone] 07/23/2023, 8:11 AM documented in this encounter Plan of Treatment Upcoming Encounters Date Type Department Care Team (Late st Contact Info) Description 08/17/2023 8:20 AM EST Office Visit [facility] [address] [place] [address] Kirstie Rose PA-C [address] [place] [address] Health Maintenance Due Date Last Done Comments Alpha-1 Antitrypsin 1966 Hepatitis C Screening 1966 LUNG CANCER SCREENING - USE SMARTSET 54321 1998 Zoster Vaccines (1 of 2) 1998 Hepatitis B (1 of 3 - Risk 3-dose series) 2008 DXA Scan 03/21/2017 03/21/2014 COLONOSCOPY-EVERY 3 YRS AGES 18-100 06/05/2018 06/05/2015, 06/05/2015 DISCUSS TOBACCO CESSATION (REFER TO SMARTSET #0369) 08/04/2018 08/04/2017 (Course Completed) Depression Screening 12/25/2020 12/26/2019 B-12 05/13/2022 05/13/2021, 06/06/2019 CKD HGB USE SMARTSET 59601 05/13/2022 05/13/2021, CKD PHOS USE SMARTSET 23049 05/13/2022 05/13/2021 Diabetic Eye Exam 12/09/2022 12/09/2021, , 09/16/2018, Additional history exists COVID-19 Vaccine ( season) 2023 08/06/2021, 12/05/2020, 11/14/2020 Influenza Vaccine (FLU shot) (#1) 2023 06/03/2022, 05/26/2021, 07/09/2020, Additional history exists GFR 06/06/2023 12/05/2022, 10/0 11/2021, 11/21/2021, Additional history exists HbA1c 06/06/2023 12/05/2022, 10/0 11/2021, 11/21/2021, Additional history exists Albumin/Creatinine Ratio 06/09/2023 022, 04/05/2018, 09/25/2016 Diabetic Foot Exam 12/04/2023 12/03/2022, 0 05/26/2021, 12/01/2018, Additional history exists O2 ASSESSMENT COMPLETED IN PAST YEAR FOR COPD 06/23/2024 06/23/2023 DTaP,Tdap,and Td Vaccines (3 - Td or Tdap) 05/22/2026 05/22/2016, 10/14/2006, 09/06/1995 Pneumococcal Vaccine: 65+ Years Completed 08/13/2016, 07/05/2015 GARDASIL-HPV IMMUNIZATION SERIES Aged Out No longer eligible based on patient's age to complete this topic MENINGOCOCCAL (MENACTRA/MENVEO) Aged Out No longer eligible based on patient's age to complete this topic documented as of this encounter Medical Devices Not on filedocumented as of this encounter Visit Diagnoses Diagnosis Left shoulder tendinitis Anxiety Anxiety state, unspecified documented in this encounter Care Teams Automatic Pinsetter Adjuster Relationship Specialty Start Date End Date Nerissa Santana DO [address] [place] [address] PCP - General Family Medicine 10/13/11 documented as of this encounter
--- OUTSIDE RECORDS SUMMARY | 2023-11-09 19:39 | External Medical Summary | Summary of Care ---
Author Name Unknown Organization [facility] Address [address] [place] [address] Phone [phone] Care Team Providers Care Veterinary Anatomist Name Role Phone Nerissa Ding DO Primary Care Provider + [phone] Reason for Visit * Reason Onset Date Comments Medication Refill 06/12/2023 Encounter Details Date Type Department Care Team Description 06/12/2023 Refill [facility] [address] [place] [address] Nerissa Ding DO [address], [place] [id number] Left shoulder tendinitis; Anxiety Allergies Active Allergy Reactions Severity Noted Date Comments Coenzyme Q10 12/11/2021 Other reaction(s): Leg Cramps Simvastatin 12/09/2009 Myalgia:(thighs, shoulder) documented as of this encounter (statuses as of 06/15/2023) Medications Medication Sig Dispensed Refills Start Date [...] as directed. 1 Each 1 04/01/2022 Active Lisinopril-hydroCHL OROthiazide 10-12.5 MG Oral TabletIndications:T ype 2 diabetes mellitus without complication, without long-term current use of insulin (HCC) TAKE 1 TABLET BY MOUTH EVERY DAY 90 Tablet 3 06/12/2022 Active predniSONE 10 MG Oral Tablet (Deltasone)Indicati [...] the tablet. 90 Tablet 5 09/15/2022 Active Albuterol Sulfate 1.25 MG/3ML Inhalation Nebulization Solution Inhale 1.25 mg via nebulizer every 4 hours as needed for Wheezing. 3 mL 5 10/27/2022 Active Levalbuterol HCl 0.63 MG/3ML Inhalation Nebulization [...] THE MORNING 90 Tablet 2 12/17/2022 Active Azithromycin 250 MG Oral Tablet (Zithromax [...] complication, without long-term current use of insulin ([facility]) TAKE 1 TABLET BY MOUTH TWICE A DAY WITH BREAKFAST AND DINNER 180 Tablet 3 02/25/2023 Active traMADol HCl 50 MG Oral Tablet (Ultram)Indications :Left shoulder tendinitis Take 1 Tablet by mouth every 6 hours as needed (pain). 60 Tablet 1 06/15/2023 Active ALPRAZolam 0.25 MG Oral Tablet (xaNAX)Indications: Anxiety TAKE 1 TABLET BY MOUTH 3 TIMES A DAY NEEDED FOR ANXIETY 90 Tablet 0 06/15/2023 Active traMADol HCl 50 MG Oral Tablet (Ultram)Indications :Left shoulder tendinitis Take 1 Tablet by mouth every 6 hours as needed (pain). 60 Tablet 1 04/02/2023 3 Discontinue d(Refill) ALPRAZolam 0.25 MG Oral Tablet (xaNAX)Indications: Anxiety TAKE 1 TABLET BY MOUTH 3 TIMES A DAY NEEDED FOR ANXIETY 90 Tablet 0 05/14/2023 3 Discontinue d(Refill) documented as of this encounter (statuses as of 06/15/2023) Active Problems Problem Noted Date Chronic kidney disease, stage 3a 021 Overview: Per CKD protocol COPD, group C, by GOLD 2017 classificati on 09/18/2019 Overview: Per COPD GOLD Classification COPD with exacerbation 09/07/2019 Morbid obesity with body mass index of 4 0.0-44.9 in adult 12/01/2018 Type 2 diabetes mellitus wit h diabetic peripheral angiopathy without gangrene 03/29/2017 HTN, goal below 130/80 11/06/2015 Anxiety 07/05/2015 Statin intolerance 07/05/2015 JACE on CPAP 12/10/2014 Dyslipidemia, goal LDL below 70 06/14/20 13 Tobacco use disorder 06/24/2009 ADVANCE DIRECTIVE INFORMATION 08/03/2006 Overview: No, Advance Directive brochure offered , patient declined. documented as of this encounter (statuses as of 06/15/2023) Resolved Problems Problem Noted Date Resolved Date Type 2 diabetes mellitus wit h diabetic peripheral angiopathy without gangrene 03/29/2017 05/06/2017 Type 2 diabetes mellitus without complication 03/29/2017 COPD, moderate 03/11/2015 09/21/2019 Overview: Per COPD GOLD Classification Borderline diabetes 06/14/2013 08/13/2016 Body mass index (BMI) of 40.0-44.9 in adult 12/201012/14/2018 Overview: ICD-10 update of inactive term Obesity, Class II, BMI 35-39.9, isolated (see ac tual BMI) 12/02/2009 12/08/2010 Overview: Per Obesity Taxonomy Dyslipidemia, goal to be determined 08/15/2009 08/07/2013 Overview: Per Lipid Taxonomy. Other specific muscle disorders 09/15/2006 05/06/2017 DIEGO MUNA SOFT TISSUE HEAD 09/15/2006 017 Contusion of foot 02/10/2006 05/06/2017 Calculus of ureter 10/18/2003 02/16/2020 OBESITY, UNSPECIFIED 03/28/2002 12/02/2009 Overview: Per Obesity Taxonomy PURE HYPERCHOLESTEROLEM 08/15/20 Overview: Per Lipid Taxonomy. documented as of this encounter (statuses as of 06/15/2023) Immunizations Name Administration Dates Next Due COVID-19 mRNA, LNP-s, No Pre serve, 2-Dose Series (Selventa) 08/06/2021,12/05/2020,11/14/2020 Pneumococcal Conjugate Vacc, 13 Valent (Prevnar) [...] drink = 0.6 oz pur e alcohol) Sex Assigned at Date Recorded Female 12/03/2022 8:10 AM E DT Job Start Date Occupation Industry Not on file Not on file Not on file documented as of this encounter Miscellaneous Notes * Telephone Encounter - Nerissa Ding DO - 06/15/2023 7:29 AM EDTSigned Prescriptions: Disp Refills traMADol HCl 50 MG Oral Tablet (Ultram) 60 Tab*1 Sig: Take 1 Tablet by mouth every 6 hours as needed (pain). Authorizing Provider: NERISSA DING ALPRAZolam 0.25 MG Oral Tablet (xaNAX) 90 Tab*0 Sig: TAKE 1 TABLET BY MOUTH 3 TIMES A DAY NEEDED FOR ANXIETY Authorizing Provider: NERISSA DING ------- * Telephone Encounter - Melani Farfan [facility] - 06/14/2023 9:39 AM EDTPending Prescriptions: Disp Refills traMADol HCl 50 MG Oral Tablet (Ultram) 60 Tab*1 Sig: Take 1 Tablet by mouth every 6 hours as needed (pain). ALPRAZolam 0.25 MG Oral Tablet (xaNAX) 90 Tab*0 Sig: TAKE 1 TABLET BY MOUTH 3 TIMES A DAY NEEDED FOR ANXIETY * Telephone Encounter - Melani Farfan [facility] - 06/14/2023 9:38 AM EDT I have reviewed the patients controlled substance dispensing history in the Prescription Drug Monitoring Program in compliance with the [facility] regulations before prescribing a controlled substance. PDMP checked on 06/14/2023. Pending Prescriptions: Disp Refills traMADol HCl 50 MG Oral Tablet (Ultram) 60 Tab*1 Sig: Take 1 Tablet by mouth every 6 hours as needed (pain). ALPRAZolam 0.25 MG Oral Tablet (xaNAX) 90 Tab*0 Sig: TAKE 1 TABLET BY MOUTH 3 TIMES A DAY NEEDED FOR ANXIETY Last Visit: 12/03/2022 (in office), Visit date not found (telemedicine) Next Visit: Visit date not found Date medication was last filled: 05/14/23, 05/06/23 Date medication is due for refill: 06/12/23, 05/20/23 [facility]: [id number] Is this request for a controlled substance? Yes and Urine Drug Screen Not completed Toxicology results: No results found for this or any previous visit. Please approve if appropriate. Thanks, Melani Farfan Clinical Pharmacist Centralized Clinical Pharmacy Services ([facility]PS) (Formerly Telepharmacy) [phone] 06/14/2023, 9:38 AM documented in this encounter Plan of Treatment Health Maintenance Due Date Last Done Comments Alpha-1 Antitrypsin 1968 Hepatitis C Screening 1968 LUNG CANCER SCREENING - USE SMARTSET 55257 1998 Zoster Vaccines (1 of 2) 1998 DXA Scan 03/21/2017 03/21/2014 COLONOSCOPY-EVERY 3 YRS AGES 18-100 06/05/2018 06/05/2015, 06/05/2015 DISCUSS TOBACCO CESSATION (REFER TO SMARTSET #3291) 08/04/2018 08/04/2017 (Course Completed) Depression Screening 12/25/2020 12/26/2019 B-12 05/13/2022 05/13/2021, 06/06/2019 CKD HGB USE SMARTSET 80804 05/13/2022 05/13/2021, CKD PHOS USE SMARTSET 40545 05/13/2022 05/13/2021 DIABETES-EYE EXAM 12/09/2022 12/09/2021, , 09/16/2018, Additional history exists COVID-19 Vaccine ( season) 2023 08/06/2021, 12/05/2020, 11/14/2020 Influenza Vaccine (FLU shot) (#1) 2023 06/03/2022, 05/26/2021, 07/09/2020, Additional history exists GFR 06/06/2023 12/05/2022, 11/2021, 11/21/2021, Additional history exists HbA1c 06/06/2023 12/05/2022, 11/2021, 11/21/2021, Additional history exists Albumin/Creatinine Ratio 06/09/2023 022, 04/05/2018, 09/25/2016 Diabetic Foot Exam 12/04/2023 12/03/2022, 0 05/26/2021, 12/01/2018, Additional history exists O2 ASSESSMENT COMPLETED IN PAST YEAR FOR COPD 12/04/2023 12/03/2022 DTaP,Tdap,and Td Vaccines (3 - Td or [...] unspecified documented in this encounter Care Teams Veterinary Anatomist Relationship Specialty Start Date End Date Nerissa Ding, [address] [place] [address] PCP - General Family Medicine 10/13/11 documented as of this encounter
--- OUTSIDE RECORDS SUMMARY | 2023-11-09 19:39 | External Medical Summary | Summary of Care ---
Author Name Unknown Organization [facility] Address [address] [place] [address] Phone [phone] Care Team Providers Care Varnishing Unit Operator Name Role Phone Nerissa Santana DO Primary Care Provider [phone] Reason for Visit * Reason Comments eRx-Medication Refill Encounter Details Date Type Department Care Team Description 06/17/2023 Refill [facility] [address] [place] [address] Nerissa Santana DO [address] [place] [address] Type 2 diabetes mellitus without complication, without long-term current use of insulin (HCC) Allergies Active Allergy Reactions Severity Noted Date Comments Coenzyme Q10 12/11/2021 Other reaction(s): Leg Cramps Simvastatin 12/09/2009 Myalgia:(thighs, shoulder) documented as of this encounter (statuses as of 06/18/2023) Medications Medication Sig Dispensed Refills Start Date End Date Status aspirin 81 MG chewable tabletIndications:H eart murmur Take 1 Tablet by mouth in the morning. with food.. 100 Tab 5 5 Active Glucose Blood (ONETOUCH ULTRA BLUE) STRPIndications:Bor derline diabetes Use as directed 2 times a day. Use up to four times a day as directed 100 Strip 11 6 Active Blood Glucose Monitoring Suppl (ONETOUCH ULTRA SYSTEM) W/DEVICE KITIndications:Bord fernanda diabetes Use as directed 2 times a day. 1 Kit 0 6 Active ONETOUCH ULTRASOFT LANCETS MISCIndications:Rustam scott diabetes Use as directed 2 times a day. 1 Box Dosing Unit 11 6 Active zoster vac recomb adjuvanted (SHINGRIX) 50 MCG/0.5ML injectionIndication s:Need for vaccination for zoster Inject 0.5 mL into a large muscle now and repeat dose in 60 to 180 days 1 Each 1 0 Active HYDROcodone-Acetami nophen 10-325 MG Oral TabletIndications:A cute pain of left knee Take by mouth 1 Tablet every 8 hours as needed for Pain, Severe. 30 Tablet 0 2 Active Nebulizer/Tubing/Mo uthpiece KitIndications:COPD , group C, by GOLD 2017 classification ([facility]) Use as directed with machine 1 Kit 0 2 Active Compressor NebulizerIndication s:COPD, group C, by GOLD 2017 classification ([facility]) Inhale via nebulizer . Use as directed. 1 Each 1 2 Active predniSONE 10 MG Oral Tablet (Deltasone)Indicati ons:COPD with exacerbation ([facility]) Take 5 tabs for 2 days, 4 tabs for 2 days, 3 tabs for 2 days, 2 tabs for 2 days 1 tab for 2 days 30 Tablet 1 2 Active Pantoprazole Sodium 20 MG Oral Tablet Delayed Release (Protonix)Indicatio ns:Gastroesophageal reflux disease without esophagitis Take 1 Tablet by mouth in the morning. 30 minutes before the first meal of the day. Do not crush, split or chew the tablet. 90 Tablet 5 3 Active Albuterol Sulfate 1.25 MG/3ML Inhalation Nebulization Solution Inhale 1.25 mg via nebulizer every 4 hours as needed for Wheezing. 3 mL 5 3 Active Levalbuterol HCl 0.63 MG/3ML Inhalation Nebulization Solution (Xopenex) Inhale 3 mL via nebulizer every 4 hours as needed for Wheezing. 3 mL 12 3 Active Spiriva HandiHaler 18 MCG Inhalation Capsule (tiotropium bromide)Indications :COPD, group C, by GOLD 2017 classification ([facility]) Inhale 1 Capsule by mouth in the morning. For inhaler only, do not swallow.. 30 Capsule 11 3 Active Atorvastatin Calcium 20 MG Oral Tablet (Lipitor)Indication s:Dyslipidemia, goal LDL below 70 TAKE 1 TABLET BY MOUTH EVERY DAY IN THE MORNING 90 Tablet 2 3 Active Azithromycin 250 MG Oral Tablet (Zithromax Z-Tommy) Take two tablets by mouth on first day, then 1 tablet daily until gone 6 Tablet 0 3 Active predniSONE 10 MG Oral Tablet (Deltasone)Indicati ons:Tendinitis of right foot Take 5 tabs for 2 days, 4 tabs for 2 days, 3 tabs for 2 days, 2 tabs for 2 days 1 tab for 2 days 30 Tablet 0 3 Active Azithromycin 250 MG Oral Tablet (Zithromax Z-Tommy) Take two tablets by mouth on first day, then 1 tablet daily until gone 6 Tablet 0 3 Active predniSONE 10 MG Oral Tablet (Deltasone)Indicati ons:Tendinitis of right foot Take 5 tabs for 2 days, 4 tabs for 2 days, 3 tabs for 2 days, 2 tabs for 2 days 1 tab for 2 days 30 Tablet 0 3 Active metFORMIN HCl 500 MG Oral Tablet (Glucophage)Indicat ions:Type 2 diabetes mellitus without complication, without long-term current use of insulin (HCC) TAKE 1 TABLET BY MOUTH TWICE A DAY WITH BREAKFAST AND DINNER 180 Tablet 3 3 Active traMADol HCl 50 MG Oral Tablet (Ultram)Indications :Left shoulder tendinitis Take 1 Tablet by mouth every 6 hours as needed (pain). 60 Tablet 1 3 Active ALPRAZolam 0.25 MG Oral Tablet (xaNAX)Indications: Anxiety TAKE 1 TABLET BY MOUTH 3 TIMES A DAY NEEDED FOR ANXIETY 90 Tablet 0 3 Active Lisinopril-hydroCHL OROthiazide 10-12.5 MG Oral TabletIndications:T ype 2 diabetes mellitus without complication, without long-term current use of insulin (HCC) TAKE 1 TABLET BY MOUTH EVERY DAY 90 Tablet 1 3 Active Lisinopril-hydroCHL OROthiazide 10-12.5 MG Oral TabletIndications:T ype 2 diabetes mellitus without complication, without long-term current use of insulin (HCC) TAKE 1 TABLET BY MOUTH EVERY DAY 90 Tablet 3 2 06/18/20 23 Discontinued documented as of this encounter (statuses as of 06/18/2023) Active Problems Problem Noted Date Chronic kidney [...] as of this encounter (statuses as of 06/18/2023) Resolved Problems Problem Noted Date Resolved Date [...] Overview: Per Obesity Taxonomy PURE HYPERCHOLESTEROLEM 08/15/20 09 Overview: Per Lipid Taxonomy. documented as of this encounter (statuses as of 06/18/2023) Immunizations Name Administration Dates Next Due COVID-19 [...] encounter Miscellaneous Notes * Telephone Encounter - Salma Cohen [facility] - 06/18/2023 6:39 AM EDTSigned Prescriptions: Disp Refills Lisinopril-hydroCHLOROthiazide 10-12.5 MG *90 Tab*1 Sig: TAKE 1 TABLET BY MOUTH EVERY DAYAuthorizing Provider: NERISSA SANTANA User: SALMA COHEN------- documented in this encounter Plan of Treatment Health Maintenance Due Date Last Done Comments Alpha-1 Antitrypsin 1968 Hepatitis C Screening 1968 LUNG CANCER SCREENING - USE SMARTSET 81839 1998 Zoster Vaccines (1 of 2) 1998 DXA Scan 03/21/2017 03/21/2014 COLONOSCOPY-EVERY 3 YRS AGES 18-100 06/05/2018 06/05/2015, 06/05/2015 DISCUSS TOBACCO CESSATION (REFER TO SMARTSET #3291) 08/04/2018 08/04/2017 (Course Completed) Depression Screening 12/25/2020 12/26/2019 B-12 05/13/2022 05/13/2021, 06/06/2019 CKD HGB USE SMARTSET 56225 05/13/2022 05/13/2021, CKD PHOS USE SMARTSET 30657 05/13/2022 05/13/2021 DIABETES-EYE EXAM 12/09/2022 12/09/2021, , [...] Visit Diagnoses Diagnosis Type 2 diabetes mellitus without complication, without long-term current use of insulin (HCC) documented in this encounter Care Teams Varnishing Unit Operator Relationship Specialty Start Date End Date Nerissa Santana, DO [address] [place] [address] PCP - General Family Medicine 10/13/11 documented as of this encounter
--- OUTSIDE RECORDS SUMMARY | 2023-11-09 19:39 | External Medical Summary | Summary of Care ---
Author Name Unknown Organization [facility] Address [address] [place] [address] Phone [phone] Care Team Providers Care It Training Specialist Name Role Phone Nerissa Ding DO Primary Care Provider + [phone] Reason for Visit * Reason Onset Date Comments Medication Refill 05/13/2023 Encounter Details Date Type Department Care Team Description 05/13/2023 Refill [facility] [address] [place] [address] Nerissa Ding DO [address] [place] [address] Anxiety Allergies Active Allergy Reactions Severity Noted Date Comments Coenzyme Q10 12/11/2021 Other reaction(s): Leg Cramps Simvastatin 12/09/2009 Myalgia:(thighs, shoulder) documented as of this encounter (statuses as of 05/14/2023) Medications Medication Sig Dispensed Refills Start Date [...] , group C, by GOLD 2017 classification ([facility]) Use as directed with machine 1 Kit 0 11/26/2021 Active Compressor NebulizerIndication s:COPD, group C, by GOLD 2017 classification ([facility]) Inhale via nebulizer . Use as directed. 1 Each 1 04/01/2022 Active Lisinopril-hydroCHL OROthiazide 10-12.5 MG Oral TabletIndications:T ype 2 diabetes mellitus without complication, without long-term current use of insulin ([facility]) TAKE 1 TABLET BY MOUTH EVERY [...] :COPD, group C, by GOLD 2017 classification ([facility]) Inhale 1 Capsule by mouth in [...] as needed (pain). 60 Tablet 1 04/02/2023 Active ALPRAZolam 0.25 MG Oral Tablet (xaNAX)Indications: Anxiety TAKE 1 TABLET BY MOUTH 3 TIMES A DAY NEEDED FOR ANXIETY 90 Tablet 0 05/14/2023 Active ALPRAZolam 0.25 MG Oral Tablet (xaNAX)Indications: Anxiety TAKE 1 TABLET BY MOUTH 3 TIMES A DAY NEEDED FOR ANXIETY 90 Tablet 0 03/29/2023 3 Discontinue d(Refill) documented as of this encounter (statuses as of 05/14/2023) Active Problems Problem Noted Date Chronic kidney [...] as of this encounter (statuses as of 05/14/2023) Resolved Problems Problem Noted Date Resolved Date [...] as of this encounter (statuses as of 05/14/2023) Immunizations Name Administration Dates Next Due COVID-19 mRNA, LNP-s, No Pre serve, 2-Dose Series (Pfizer) 08/06/2021,12/05/2020,11/14/2020 Pneumococcal Conjugate Vacc, 13 Valent (Prevnar) 08/13/2016 Pneumococcal Polysaccharide PPV23 (Pneumovax) 07/05/2015 Season Influenza, Quad, PF, Adjuvanted, 65+ Yrs, IM (FLUAD) 07/09/2020 Seasonal Influenza, PF, 6 mo ns & Above, IM , (Flulaval) 06/23/2019,08/04/2017 Seasonal Influenza, Quadriva lent Hd (Fluzone [...] Telephone Encounter - Nerissa Ding DO - 05/14/2023 2:16 PM EDTSigned Prescriptions: Disp Refills ALPRAZolam 0.25 MG Oral Tablet (xaNAX) 90 Tab*0 Sig: TAKE 1 TABLET BY MOUTH 3 TIMES A DAY NEEDED FOR ANXIETY Authorizing Provider: NERISSA DING * Telephone Encounter - Summer Camacho [facility] - 05/14/2023 11:26 AM EDT Pending Prescriptions: Disp Refills ALPRAZolam 0.25 MG Oral Tablet (xaNAX) 90 Tab*0 Sig: TAKE 1 TABLET BY MOUTH 3 TIMES A DAY NEEDED FOR ANXIETY * Telephone Encounter - Summer Camacho [facility] - 05/14/2023 11:25 AM EDT I have reviewed the patients controlled substance dispensing history in the Prescription Drug Monitoring Program in compliance with the [facility] regulations before prescribing a controlled substance. PDMP checked on 05/14/2023. Pending Prescriptions: Disp Refills ALPRAZolam 0.25 MG Oral Tablet (xaNAX) 90 Tab*0 Sig: TAKE 1 TABLET BY MOUTH 3 TIMES A DAY NEEDED FOR ANXIETY Last Visit: 12/03/2022 (in office), Visit date not found (telemedicine) Next Visit: 06/07/2023 Date medication was last filled: 03/29/23 Date medication is due for refill: 04/27/23 [facility]: [id number] [address] [facility] Is this request for a controlled substance? Yes and Urine Drug Screen Not completed Toxicology results: No results found for this or any previous visit. Please approve if appropriate. Thank you, Summer Camacho, PharmD Clinical Pharmacist Centralized Clinical Pharmacy Services (CCPS) (formerly Telepharmacy) 05/14/23 11:26 AM [phone] documented in this encounter Plan of Treatment Upcoming Encounters Date Type Specialty Care Team Description 06/07/2023 Office Visit Family Medicine Nerissa Ding, DO [address] [place] [address] Health Maintenance Due Date Last Done Comments Alpha-1 Antitrypsin 1968 Hepatitis C Screening 1968 LUNG CANCER SCREENING - USE SMARTSET 73784 1998 Zoster Vaccines (1 of 2) 1998 DXA Scan 03/21/2017 03/21/2014 COLONOSCOPY-EVERY 3 YRS AGES 18-100 06/05/2018 06/05/2015, 06/05/2015 DISCUSS TOBACCO CESSATION (REFER TO SMARTSET #3291) 08/04/2018 08/04/2017 (Course Completed) Depression Screening 12/25/2020 12/26/2019 COVID-19 Vaccine (4 - Pfizer series) 10/01/2021 08/06/2021, 12/05/2020, 11/14/2020 B-12 05/13/2022 05/13/2021, 06/06/2019 CKD HGB USE SMARTSET 75056 05/13/2022 05/13/2021, CKD PHOS USE SMARTSET 90924 05/13/2022 05/13/2021 DIABETES-EYE EXAM 12/09/2022 12/09/2021, , 09/16/2018, Additional history exists Influenza Vaccine (FLU shot) (#1) 2023 06/03/2022, [...] as of this encounter Visit Diagnoses Diagnosis Anxiety Anxiety state, unspecified documented in this encounter Care Teams It Training Specialist Relationship Specialty Start Date End Date Nerissa Ding DO [address] [place] [address] PCP - General Family Medicine 10/13/11 documented as of this encounter
--- OUTSIDE RECORDS SUMMARY | 2023-11-09 19:39 | External Medical Summary | Summary of Care ---
Author Name Unknown Organization [facility] Address [address] [place] [address] Phone [phone] Care Team Providers Care Compliance Consultant Name Role Phone AndreaDari bueno Riana YEPEZ Primary Care Provider + [phone] Reason for Visit * Reason Comments Acute The pt stated she de la cruz s been having itching/burning in her vaginal area. Encounter Details Date Type Department Care Team Description 06/23/2023 Office Visit General Internal Medicine [facility] [place] [address] [place] [address] Lizzy Edward MD [address] [place] [address] Vulvar itching*; Intertriginous candidiasis; Type 2 diabetes mellitus with hemoglobin A1c goal of less than 7.0% ([facility]) Allergies Active Allergy Reactions Severity Noted Date Comments Coenzyme Q10 12/11/2021 Other reaction(s): Leg Cramps Simvastatin 12/09/2009 Myalgia:(thighs, shoulder) documented as of this encounter (statuses as of 06/23/2023) Medications Medication Sig Dispensed Refills Start Date [...] Monitoring Suppl (ONETOUCH ULTRA SYSTEM) W/DEVICE KITIndications:Samuel fernanda diabetes Use as directed 2 times [...] C, by GOLD 2017 classification ([facility]) Use as directed with machine 1 Kit 0 2 Active Compressor NebulizerIndication s:COPD, group C, by GOLD 2017 classification ([facility]) Inhale via nebulizer . Use as directed. 1 Each 1 2 Active predniSONE 10 MG Oral Tablet (Deltasone)Indicati ons:COPD with exacerbation ([facility]) Take 5 tabs for 2 days, 4 [...] the tablet. 90 Tablet 5 3 Active Levalbuterol HCl 0.63 MG/3ML Inhalation Nebulization Solution (Xopenex) Inhale 3 mL via nebulizer every 4 hours as needed for Wheezing. 3 mL 12 3 Active Spiriva HandiHaler 18 MCG Inhalation Capsule (tiotropium bromide)Indications :COPD, group C, by GOLD 2017 classification ([facility]) Inhale 1 Capsule by mouth in the morning. For inhaler only, do not swallow.. 30 Capsule 11 3 Active Atorvastatin Calcium 20 MG Oral Tablet (Lipitor)Indication s:Dyslipidemia, goal LDL below 70 TAKE 1 TABLET BY MOUTH EVERY DAY IN THE MORNING 90 Tablet 2 3 Active predniSONE 10 MG Oral Tablet [...] long-term current use of insulin ([facility]) TAKE 1 TABLET BY MOUTH TWICE [...] EVERY DAY 90 Tablet 1 3 Active Triamcinolone Acetonide 0.1 % External Ointment (Aristocort)Indicat ions:Vulvar itching Apply topically to affected area 2 times a day. Till better then as needed 30 g 0 3 Active Albuterol Sulfate 1.25 MG/3ML Inhalation Nebulization Solution Inhale 1.25 mg via nebulizer every 4 hours as needed for Wheezing. 3 mL 5 3 06/23/20 23 Discontinued Azithromycin 250 MG Oral Tablet (Zithromax Z-Tommy) Take two tablets by mouth on first day, then 1 tablet daily until gone 6 Tablet 0 3 06/23/20 23 Discontinued documented as of this encounter (statuses as of 06/23/2023) Active Problems Problem Noted Date Chronic kidney [...] as of this encounter (statuses as of 06/23/2023) Resolved Problems Problem Noted Date Resolved Date [...] as of this encounter (statuses as of 06/23/2023) Immunizations Name Administration Dates Next Due COVID-19 mRNA, LNP-s, No Pre serve, 2-Dose Series (Chtiogen) 08/06/2021,12/05/2020,11/14/2020 Pneumococcal Conjugate Vacc, 13 Valent (Prevnar) [...] Sign Reading Time Taken Comments Blood Pressure 108/62 06/23/2023 10:17 AM EDT Pulse 78 06/23/2023 10:17 AM EDT Temperature 36.2 C (97.2 F) 06/23/2023 1 0:17 AM EDT Respiratory Rate - - Oxygen Saturation 98% 06/23/2023 10: 17 AM EDT Inhaled Oxygen Concentration - - Weight 114.7 kg (252 lb 12.8 oz) 2022 10:17 AM EDT Height - - Body Mass Index 40.8 12/03/2022 8:13 AM EDT documented in this encounter Progress Notes * Lizzy Edward MD - 06/23/2023 10:27 AM EDT SUBJECTIVE: Tamiko Zabala is a 73 year old female. Chief Complaint Patient presents with Acute The pt stated she has been having itching/burning in her vaginal area. HPI: Patient presents today with symptoms of itching in her perineal area for the last month. Admits to a burning sensation. Denies any discharge or odor, denies incontinence other than mild urge incontinence, does not wet herself and does not wear a pad. No dysuria or hematuria. No vaginal bleeding. She thought it may have been from a change in soap that she had been using and went back to her previous detergent. No history of similar symptoms in the past. Hemoglobin AIC Results: Lab Results Component Value Date/Time HEMOGLOBIN A1C - [facility] 6.3 (H) 12/05/2022 09:57 AM HEMOGLOBIN A1C - [facility] 6.4 (H) 06/08/2022 08:07 AM HEMOGLOBIN A1C - [facility] 6.4 (H) 11/21/2021 12:55 PM HEMOGLOBIN A1C - [facility] 6.0 (H) 03/11/2020 12:19 PM HEMOGLOBIN A1C - [facility] 6.1 (H) 10/05/2019 08:05 AM HEMOGLOBIN A1C - [facility] 6.4 (H) 06/06/2019 07:57 AM Patient Active Problem List Diagnosis Code ADVANCE DIRECTIVE INFORMATION Tobacco use disorder F17.200 Dyslipidemia, goal LDL below 70 E78.5 JACE on CPAP G47.33 Anxiety F41.9 Statin intolerance Z78.9 HTN, goal below 130/80 I10 Type 2 diabetes mellitus with diabetic peripheral angiopathy without gangrene (HCC) E11.51 Morbid obesity with body mass index of 40.0-44.9 in adult (HCC) E66.01, Z68.41 COPD with exacerbation ([facility]) J44.1 COPD, group C, by GOLD 2017 classification ([facility]) J44.9 Chronic kidney disease, stage 3a N18.31 Current Outpatient Medications Medication Sig Dispense Refill aspirin 81 MG chewable tablet Take 1 Tablet by mouth in the morning. with food.. 100 Tab 5 Glucose Blood (TrustribeUCH ULTRA BLUE) STRP Use as directed 2 times a day. Use up to four times a day as directed 100 Strip 11 Blood Glucose Monitoring Suppl (Codementor ULTRA SYSTEM) W/DEVICE KIT Use as directed 2 times a day. 1 Kit 0 TrustribeUCH ULTRASOFT LANCETS [facility] Use as directed 2 times a day. 1 Box Dosing Unit 11 Nebulizer/Tubing/Mouthpiece Kit Use as directed with machine 1 Kit 0 Compressor Nebulizer Inhale via nebulizer . Use as directed. 1 Each 1 Pantoprazole Sodium 20 MG Oral Tablet Delayed [...] DAY WITH BREAKFAST ANDDINNER 180 Tablet 3 traMADol HCl 50 MG Oral Tablet (Ultram) Take 1 Tablet by mouth every 6 hours as needed (pain). 60 Tablet 1 ALPRAZolam 0.25 MG Oral Tablet (xaNAX) TAKE 1 TABLET BY MOUTH 3 TIMES A DAY NEEDED FOR ANXIETY 90 Tablet 0 Lisinopril-hydroCHLOROthiazide 10-12.5 MG Oral Tablet TAKE 1 TABLET BY MOUTH EVERY DAY 90 Tablet 1 zoster vac recomb adjuvanted (SHINGRIX) 50 MCG/0.5ML injection Inject 0.5 mL into a large muscle now and repeat dose in 60 to 180 days 1 Each 1 HYDROcodone-Acetaminophen 10-325 MG Oral Tablet Take by mouth 1 Tablet every 8 hours as needed for Pain, Severe. 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 Wearing synthetic underwear Ext genitalia: mild thickening skin vulva, no erythema/Dc ASSESSMENT/PLAN: Vulvar itching (Primary) - Triamcinolone Acetonide 0.1 % External Ointment (Aristocort); Apply topically to affected area 2 times a day. Till better then as needed Use cotton underwear, once better use vaseline with A&D ointment on vulva as needed for any wetting to protect skin. Does not wear pad Intertriginous candidiasis Advised to use OTC lotrimin powder And keep area as dry as possible. Type 2 diabetes mellitus with hemoglobin A1c goal of less than 7.0% ([facility]) F/u pcp Follow-up: Return if symptoms worsen or fail to improve. | Check-out note: [facility] pcp office next available for reg appt (This note was completed using the dictation program Fluency Direct. As such, there may be misspellings, word substitutions, or other variations that should not change the essence of the clinical content of this encounter note. If there is need for further clarification, please direct questions to the provider listed above.) Patient and / caregiver verbalize understanding of above instructions and agrees with plan of care. Lizzy Edward MD 06/23/2023 documented in this encounter Nursing Notes * Rhys Schreiber LPN - 06/23/2023 10:17 AM EDT Chief Complaint Patient presents with Acute The pt stated she has been having itching/burning in her vaginal area. documented in this encounter Plan of Treatment Upcoming Encounters Date Type Specialty Care Team Description 08/17/2023 Office Visit Family Medicine Kirstie Rose, PA-C [address] [place] [address] Health Maintenance Due Date Last Done Comments Alpha-1 Antitrypsin 1968 Hepatitis C Screening 1968 LUNG CANCER SCREENING - USE SMARTSET 95751 1998 Zoster Vaccines (1 of 2) 1998 DXA Scan 03/21/2017 03/21/2014 COLONOSCOPY-EVERY 3 YRS AGES 18-100 06/05/2018 06/05/2015, 06/05/2015 DISCUSS TOBACCO CESSATION (REFER TO SMARTSET #3291) 08/04/2018 08/04/2017 (Course Completed) Depression Screening 12/25/2020 12/26/2019 B-12 05/13/2022 05/13/2021, 06/06/2019 CKD HGB USE SMARTSET 89776 05/13/2022 05/13/2021, CKD PHOS USE SMARTSET 51852 05/13/2022 05/13/2021 DIABETES-EYE EXAM 12/09/2022 12/09/2021, , 09/16/2018, Additional history exists COVID-19 Vaccine ( season) 2023 08/06/2021, 12/05/2020, 11/14/2020 Influenza Vaccine (FLU shot) (#1) 2023 06/03/2022, 05/26/2021, 07/09/2020, Additional history exists GFR 06/06/2023 12/05/2022, 100 11/2021, 11/21/2021, Additional [...] as of this encounter Visit Diagnoses Diagnosis Vulvar itching- Primary Pruritus of genital organs Intertriginous candidiasis Candidiasis of skin and nails Type 2 diabetes mellitus with hemoglobin A1c goal of less than 7.0% (HCC) documented in this encounter Care Teams Compliance Consultant Relationship Specialty Start Date End Date Dari Santana, DO [address] [place], [place] [id number] PCP - General Family Medicine 10/13/11 documented as of this encounter"
--- OUTSIDE RECORDS SUMMARY | 2023-11-09 19:39 | External Medical Summary | Summary of Care ---
Author Name Unknown Organization [facility] Address [address] [place] [address] Phone [phone] Care Team Providers Care Compactor Driver Name Role Phone Nerissa Ding DO Primary Care Provider + [phone] Reason for Visit * Reason Onset Date Comments Medication Refill 09/09/2023 Encounter Details Date Type Department Care Team (Late st Contact Info) Description 09/09/[address] [facility] [address] [place] [address] Nerissa Ding DO [address] [place] [address] Anxiety Allergies Active Allergy Reactions Criticality Noted Date Comments Coenzyme Q10 12/11/2021 Other reaction(s): Leg Cramps Simvastatin 12/09/2009 Myalgia:(thighs, shoulder) documented as of this encounter (statuses as of 09/13/2023) Medications Medication Sig Dispensed Refills Start Date [...] group C, by GOLD 2017 classification ([facility]) Use as directed with machine 1 Kit 0 11/26/2021 Active Compressor NebulizerIndication s:COPD, group C, by GOLD 2017 classification ([facility]) Inhale via nebulizer . Use as [...] group C, by GOLD 2017 classification ([facility]) Inhale 1 Capsule by mouth in [...] NEEDED FOR ANXIETY 90 Tablet 0 09/13/2023 Active ALPRAZolam 0.25 MG Oral Tablet (xaNAX)Indications: Anxiety TAKE 1 TABLET BY MOUTH 3 TIMES A DAY NEEDED FOR ANXIETY 90 Tablet 0 07/23/2023 Discontinue d(Refill) documented as of this encounter (statuses as of 09/13/2023) Active Problems Problem Noted Date Diagnosed Date [...] as of this encounter (statuses as of 09/13/2023) Resolved Problems Problem Noted Date Diagnosed Date [...] as of this encounter (statuses as of 09/13/2023) Immunizations Name Administration Dates Next Due COVID-19 [...] Telephone Encounter - Nerissa Ding DO - 09/13/2023 11:29 AM ESTSigned Prescriptions: Disp Refills ALPRAZolam 0.25 MG Oral Tablet (xaNAX) 90 Tab*0 Sig: TAKE 1 TABLET BY MOUTH 3 TIMES A DAY NEEDED FOR ANXIETY Authorizing Provider: NERISSA DING * Telephone Encounter - Bong [facility] - 09/11/2023 9:21 AM ESTPending Prescriptions: Disp Refills ALPRAZolam 0.25 MG Oral Tablet (xaNAX) 90 Tab*0 Sig: TAKE 1 TABLET BY MOUTH 3 TIMES A DAY NEEDED FOR ANXIETY * Telephone Encounter - Bong [facility] - 09/11/2023 9:19 AM EST I have reviewed the patients controlled substance dispensing history in the Prescription Drug Monitoring Program in compliance with the [facility] regulations before prescribing a controlled substance. PDMP checked on 09/11/2023. Pending Prescriptions: Disp Refills ALPRAZolam 0.25 MG Oral Tablet (xaNAX) 90 Tab*0 Sig: TAKE 1 TABLET BY MOUTH 3 TIMES A DAY NEEDED FOR ANXIETY Last Visit: 12/03/2022 (in office), Visit date not found (telemedicine) Next Visit: Visit date not found Date medication was last filled: 07/23/23 Date medication is due for refill: 08/21/23 Pharmacy: [facility][id number] [facility] Is this request for a controlled substance? Yes and Urine Drug Screen Not completed Toxicology results: No results found for this or any previous visit. Please approve if appropriate. Thanks, Bong Villa Rph, Pharm D. Clinical Pharmacist Centralized Clinical Pharmacy Services (Formerly Telepharmacy)/[facility] [phone] 09/11/2023,9:20 AM documented in this encounter Plan of Treatment Health Maintenance Due Date Last Done Comments Alpha-1 Antitrypsin 1968 Hepatitis C Screening 1968 LUNG CANCER SCREENING - USE SMARTSET 77390 1998 Zoster Vaccines (1 of 2) 1998 Hepatitis B (1 of 3 - Risk 3-dose series) 2008 DXA Scan 03/21/2017 03/21/2014 COLONOSCOPY-EVERY 3 YRS AGES 18-100 06/05/2018 06/05/2015, 06/05/2015 DISCUSS TOBACCO CESSATION (REFER TO SMARTSET #3291) 08/04/2018 08/04/2017 (Course Completed) Depression Screening 12/25/2020 12/26/2019 B-12 05/13/2022 05/13/2021, 06/06/2019 CKD HGB USE SMARTSET 09056 05/13/2022 05/13/2021, CKD PHOS USE SMARTSET 97368 05/13/2022 05/13/2021 Diabetic Eye Exam 12/09/2022 12/09/2021, , 09/16/2018, Additional history exists COVID-19 Vaccine ( season) 2023 08/06/2021, 12/05/2020, 11/14/2020 Influenza Vaccine (FLU shot) (#1) 2023 06/03/2022, 05/26/2021, 07/09/2020, Additional history exists GFR 06/06/2023 12/05/2022, 11/2021, 11/21/2021, Additional history exists HbA1c 06/06/2023 12/05/2022, 1011/2021, 11/21/2021, Additional history exists Albumin/Creatinine Ratio 06/09/20232 022, 04/05/2018, 09/25/2016 Diabetic Foot Exam 12/04/2023 [...] unspecified documented in this encounter Care Teams Compactor Driver Relationship Specialty Start Date End Date Nerissa Ding DO [address] [place] [facility] [place] [address] PCP - General Family Medicine 10/13/11 documented as of this encounter
--- OUTSIDE RECORDS SUMMARY | 2023-11-09 19:39 | External Medical Summary | Summary of Care ---
Author Name Unknown Organization [facility] Address [address] [place] [address] Phone [phone] Care Team Providers Care Blocklayer Name Role Phone Nerissa Ding DO Primary Care Provider + [phone] Reason for Visit * Reason Onset Date Comments Medication Refill 06/12/2023 Encounter Details Date Type Department Care Team Description 06/12/2023 Refill [facility] [address] [place] [address] Nerissa Ding DO [address] [place], [place] [id number] Left shoulder tendinitis; Anxiety Allergies Active Allergy [...] , group C, by GOLD 2017 classification ([facility]) Use as directed with machine 1 Kit 0 11/26/2021 Active Compressor NebulizerIndication s:COPD, group C, by GOLD 2017 classification ([facility]) Inhale via nebulizer . Use as [...] :COPD, group C, by GOLD 2017 classification ([facility]) Inhale 1 Capsule by mouth in [...] complication, without long-term current use of insulin ([facility]) TAKE 1 TABLET BY MOUTH TWICE [...] mRNA, LNP-s, No Pre serve, 2-Dose Series (Battlefy) 08/06/2021,12/05/2020,11/14/2020 Pneumococcal Conjugate Vacc, 13 Valent (Prevnar) [...] ------- * Telephone Encounter - Melani Farfan [facility] - 06/14/2023 9:39 AM EDTPending Prescriptions: Disp Refills traMADol HCl 50 MG Oral Tablet (Ultram) 60 Tab*1 Sig: Take 1 Tablet by mouth every 6 hours as needed (pain). ALPRAZolam 0.25 MG Oral Tablet (xaNAX) 90 Tab*0 Sig: TAKE 1 TABLET BY MOUTH 3 TIMES A DAY NEEDED FOR ANXIETY * Telephone Encounter - Melani Farfan [facility] - 06/14/2023 9:38 AM EDT I have reviewed the patients controlled substance dispensing history in the Prescription Drug Monitoring Program in compliance with the [facility] regulations before prescribing a controlled substance. [...] due for refill: 06/12/23, 05/20/23 Pharmacy: [id number] [address] [facility] Is this request for a controlled substance? Yes and Urine Drug Screen Not completed Toxicology results: No results found for this or any previous visit. Please approve if appropriate. Thanks, Melani Farfan Clinical Pharmacist Centralized Clinical Pharmacy Services ([facility]) (Formerly Telepharmacy) [phone] 06/14/2023, 9:38 AM documented in this encounter Plan of Treatment Health Maintenance Due Date Last Done Comments Alpha-1 Antitrypsin 1968 Hepatitis C Screening 1966 LUNG CANCER SCREENING - USE SMARTSET 08293 1998 Zoster Vaccines (1 of 2) 1998 DXA Scan 03/21/2017 03/21/2014 COLONOSCOPY-EVERY 3 YRS AGES 18-100 06/05/2018 06/05/2015, 06/05/2015 DISCUSS TOBACCO CESSATION (REFER TO SMARTSET #3291) 08/04/2018 08/04/2017 (Course Completed) Depression Screening 12/25/2020 12/26/2019 B-12 05/13/2022 05/13/2021, 06/06/2019 CKD HGB USE SMARTSET 41384 05/13/2022 05/13/2021, CKD PHOS USE SMARTSET 78436 05/13/2022 05/13/2021 DIABETES-EYE EXAM 12/09/2022 12/09/2021, , [...] unspecified documented in this encounter Care Teams Blocklayer Relationship Specialty Start Date End Date Nerissa Ding, [address] [place] [address] PCP - General Family Medicine 10/13/11 documented as of this encounter
[2023-11-09] MEDS: PANTOprazole 40 MG TAB PO SCH (21:50)
[2023-11-09] MEDS: ASPIRIN 81 MG ECTAB PO SCH (21:51)
[2023-11-09] MEDS: ENOXAPARIN INJ 40 MG/0.4 ML SYR SQ SCH (21:51)
[2023-11-09] MEDS: LANTUS PER UNIT CHARGE SQ SCH (22:00)
[2023-11-09] MEDS: traMADol HCL 50 MG TABLET PO PRN (23:57)
[2023-11-09] MEDS: ALPRAZolam 0.25 MG TABLET PO PRN (23:58)
[2023-11-10 04:20] LABS: Basophils # (auto) 0.03 K/uL (0.00-0.20); Basophils % (auto) 0.4 %; Eosinophils # (auto) 0.26 K/uL (0.00-0.50); Eosinophils % (auto) 3.2 %; Hematocrit (blood only) 34.9 % (37.0-47.0); Immature Granulocytes # (auto) 0.02 K/uL (0.01-0.20); Immature Granulocytes % (auto) 0.2 %; Lymphocytes # (auto) 3.08 K/uL (1.20-3.40); Lymphocytes % (auto) 37.9 %; Mean Corpuscular Hgb Conc 31.5 g/dL (32.0-36.0); Mean Corpuscular Volume 95.1 fL (80.0-100.0); Mean Platelet Volume 9.2 fL (9.4-12.4); Monocytes # (auto) 0.58 K/uL (0.11-0.59); Monocytes % (auto) 7.1 %; Neutrophils # (auto) 4.15 K/uL (1.40-6.50); Neutrophils % (auto) 51.2 %; Platelet Count 257 K/uL (130-400); RDW Coefficient of Variation 13.8 % (11.5-14.5); RDW Standard Deviation 48.5 fL (36.4-46.3); Red Blood Count 3.67 M/uL (4.20-5.40); White Blood Count 8.12 K/ul (4.8-10.8)
[2023-11-10 04:38] LABS: Albumin Globulin Ratio 1.3 (0.9-2); Albumin Level 3.3 gm/dl (3.4-5.0); BUN Creatinine Ratio 27.5 (10-20); Bilirubin,Total 0.4 mg/dl (0.2-1.0); Calcium 8.7 mg/dl (8.6-10.3); Creatinine Clr Calc Pharmacy 52.9 ml/min; Est GFR (African American) 51.2 ml/min; Est GFR (Non-African American) 44.2 ml/min; Globulin 2.5 gm/dl (2.5-4.0); Magnesium 2.1 mg/dl (1.7-2.4); Potassium 4.4 mmol/L (3.5-5.1); Total Protein 5.8 gm/dl (6.0-8.3)
[2023-11-10] MEDS: ATORVASTATIN 20 MG TAB PO SCH (08:11)
[2023-11-10] MEDS: UMECLIDINIUM BROMIDE 62.5MCG/BLISTER 7 PUFFS/INHALER INH SCH (08:11)
--- NOTE | 2023-11-10 09:47 | Consultation ---
Date of Consultation November 10, 2023 Assessment & Plan (1) Carotid stenosis, bilateral: Pt with BL carotid stenosis of 60-59%, asymptomatic. No need for surgical intervention at this time. WIll reeval in office in 6 months with a new carotid US for surveillance. (2) Stenosis of abdominal aorta: Pt with moderate stenosis of mid/distal aorta, asymptomatic. She likely does not walk fast or far enough to claudicate d/t her back pain/arthritis. Will reeval in office in 6 months with ANNIE testing. 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 These require surveillance US in 1 year. WIll arrange at follow up visit. Pt agreeable to the plan outlined above. Office will call pt to schedule. History of Present Illness Reason for Consultation: ICAS, stenosis of aorta, AAA, iliac anuerysm Attending Physician: Juliana Stratton MD History of Present Illness 73 yo f with hx of DMII, hyperlipidemia, COPD, anxiety, HTN, GERD, admitted after dizziness at home, seen in consultation today for BL carotid stenosis, AAA, iliac art aneurysm, and stenosis of proximal aorta incidentally noted on imaging. Pt states no prior knowledge of this, however, both of her parents had AAA. Pt has been a longtime smoker, but has cut back to 1/2 pack per day. States no hx of CVA or TIA. Denies amaurosis, unilateral extremity weakness numbness or tingling, facial droop, difficulty speaking or swallowing. States she has chronic back pain from arthritis which limits her ambulation. States she uses a cart at the grocery store and can walk farther. No leg pain or leg fatigue, just pain in her back. Admits charley horse type cramps occasionally at night. Denies rest pain, claudication, discoloration of toes, nonhealing ulcers. Denies ELMORE, fever, chest pain, SOB, palpitations, abd pain, N/V, other complaints. Imaging results below, no imaging performed of BLE. Carotid US demonstrates 50-69% stenosis of BL carotid arteries at the bulb. CT abd/pelvis without contrast demonstrates AAA 3.2cm, L common iliac art aneurysm 3.2cm, and severe atherosclerotic disease throughout aorta, with focal stenosis of about 50%. Allergies Allergy/AdvReac Type Severity Reaction Status Date / Time Eowziqj-LBZ-TdF Reductase AdvReac Unknown leg cramps Verified 04/08/22 08:32 Inhibitor [Jmziemm-Fxd-Upy Reductase Inhibitor] Home Medications Medication Instructions Recorded Confirmed Type alprazolam 0.25 mg tablet 0.25 mg PO TID PRN Anxiety 03/12/22 11/09/23 History aspirin 81 mg tablet,delayed 81 mg PO HS 03/12/22 11/09/23 History release atorvastatin 20 mg tablet 20 mg PO MOWEFR 03/12/22 11/09/23 History ipratropium 0.5 mg-albuterol 3 mg 3 ml inhalation Q4H PRN Wheezing 03/12/22 11/09/23 History (2.5 mg base)/3 mL nebulization soln lisinopril 10 1 tab PO HS 03/12/22 11/09/23 History mg-hydrochlorothiazide 12.5 mg tablet pantoprazole 20 mg tablet,delayed 20 mg PO HS 03/12/22 11/09/23 History release tramadol 50 mg tablet 50 mg PO Q6H PRN Pain 03/12/22 11/09/23 History empagliflozin 10 mg tablet 10 mg PO DAILY 11/09/23 11/09/23 History (Jardiance) tiotropium bromide 18 mcg capsule 18 mcg inhalation DAILY 11/09/23 11/09/23 History with inhalation device Patient History Medical History Osteoarthritis Kidney stones Neuropathy mild Cardiac murmur has had Echo's in past > no issues Smoker Chronic obstructive pulmonary disease well controlled per pt > flare up in November 2021, but resolved, no issues since Sleep apnea cpap Hypertension Hyperlipidemia Anxiety GERD (gastroesophageal reflux disease) Diabetes Surgical History Hx of right cataract extraction History of total knee replacement right History of lithotripsy History of esophagogastroduodenoscopy (EGD) History of colonoscopy History of appendectomy History of tooth extraction also has loose front tooth Rhabdomyoma right cheek, 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 Family History Other No pertinent family history Social History Smoking Status: Current every day smoker Tobacco Type: Cigarettes Cigarettes Per Day: 1/4 ppd; Second Hand Exposure: No; Do You Dip or Chew Tobacco: No; Tobacco Cessation Education Requested by Patient: No Hx Alcohol Use: No Hx Substance Use: No Preferred Language: Arabic Communication Ability: Effective Hide House Supervisor Required: No Beliefs That Will Affect Care: None Current Living Situation: Spouse and Family current occupational status: retired 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 [employer] Feels Safe at Home: Yes Safety Concerns: Feels Safe At This Time Assistive Devices: CPAP and Glasses Review of Systems Review of Systems: All systems reviewed & are unremarkable except as noted in HPI & below Physical Exam Constitutional: WD/WN, vitals as above + morbidly obese, cooperative and comfortable; not in distress ENMT: Ears: no hearing impairment Neck: trachea midline Respiratory: normal respiratory effort, lungs clear to auscultation Auscultation: + diminished lung sounds Cardiovascular: Rate/Rhythm: regular rate and regular rhythm Vessels: femoral pulses present (+1 BLE), posterior tibial pulses present (RLE +1, LLE nonpalpable), dorsalis pedis pulses present (RLE +1, LLE nonpalpable) and radial pulses present; no carotid bruit and + abnormal peripheral pulses Extremities: normal capillary refill Gastrointestinal (Abdomen): Inspection/Auscultation: abdomen normal to inspection and normal bowel sounds Percussion/Palpation: abdomen soft; abdomen nontender Musculoskeletal: no cyanosis or clubbing, extremities motor strength 5/5 Skin: no rashes, warm and dry Neurologic: moves all extremities and awake; no focal motor deficits and not confused Psychiatric: A+Ox3, euthymic affect Results & Data Vital Signs (Past 12 Hours) Vital Signs Pulse Pulse Resp BP Pulse Ox O2 Del Method 11/10/23 08:10 81 18 116/60 98 Room Air 11/10/23 06:33 83 18 110/52 L 91 Room Air 11/10/23 04:00 78 16 120/58 L 91 Room Air 11/10/23 00:01 93 H 19 113/66 97 Room Air 11/09/23 23:09 92 H
--- NOTE | 2023-11-10 10:20 | CT Scan Report ---
CT head/brain wo con CLINICAL HISTORY: repeat r/o cva Technique: Contiguous axial CT images of the head were acquired from the base of the skull to the lisa angel luis without intravenous contrast administration. Images were viewed in brain, subdural and bone [facility]. Automated dose lowering techniques and/or adjustment according to patient size were utilized for this exam. Comparison: Comparison is made to CT head 11/09/2023 Findings: Areas of decreased attenuation are present in the periventricular and subcortical white matter bilate rally consistent with small vessel ischemic disease. Generalized cerebral atrophy with commensurate e nlargement of the ventricles, sulci, and cisterns is also present. There is no acute intracranial hem orrhage or evidence of acute territorial infarction. No shift of the midline structures, mass effect, or extra-axial abnormalities are shown. Atherosclerotic calcifications are present in the intracran ial segments of the internal carotid arteries. Imaged portions of the paranasal sinuses and mastoid air cells are clear. The orbits appear normal. There are no acute fractures of the calvaria or scalp swelling. Impression: No acute intracranial hemorrhage, no evidence of acute territorial infarction or other acute intracra nial disease process. ACT 112: Negative or not required by law. Electronically signed by: Magan Doan M.D. 11/10/2023 10:18 AM
--- NOTE | 2023-11-10 11:47 | Hospitalist Progress Note ---
Date of Service November 10, 2023 Assessment & Plan (1) Orthostatic hypotension: (2) Labyrinthitis: (3) Stenosis of abdominal aorta: (4) Abdominal aneurysm: (5) Morbid obesity with BMI of 40.0-44.9, adult: (6) Diabetes: (7) Hyperlipidemia: (8) Chronic obstructive pulmonary disease: Plan This is a 73-year-old female who has a significant past medical history of T2DM with diabetic peripheral angiopathy, COPD, HTN, HLD, JACE on CPAP, morbid obesity, CKD stage III, tobacco use disorder and anxiety who presented to the ED secondary to weakness and dizziness x 1 day. Dizziness Orthostatic hypotension pt presents w acute onset dizziness, nausea and diaphoresis she had positive orthostatics in the ED received gentle hydration orthostatics BID hold outpatient lisinopril/HCTZ - may need to consider alternative agent due to orthostasis and recent ROGER as OP -BP has remined stable carotid dopplers noting 50-69% stenosis of bilateral carotids echo-EF 50-69% stenosis bilaterally Continue tele monitoring pt would benefit from ZIO patch as outpatient discussed with pt regarding stroke r/o given dizziness and hx of diabetes, she currently is refusing MRI due to claustrophobia despite anxiolytic Pt agreeable to repeat Head CT-unremarkable Possible Labyrinthitis vs. BPPV recent URI as outpt meclizine prn PT CKD-3 baseline cr 1.1 cr at baseline but pt with elevated BUN likely some underlying dehydration in conjunction with orthostasis IV fluid hydration Carotid Artery Stenosis Stenosis of Aorta Infrarenal abdominal aortic aneurysm --CT abd/pt: . No bowel obstruction or bowel wall thickening.2. Bibasilar mucous plugging with opacities favoring atelectasis or scarring.3. Nonobstructing renal calculi. No ureteral calculi or hydronephrosis.4. Severe atherosclerosis with fusiform aneurysmal dilation of the infrarenal abdominal aorta measuring up to 3.2 cm. Dilation of the left common iliac artery measures 2.5 cm.5. High-grade stenosis of the distal abdominal aorta just proximal to the bifurcation with additional high-grade stenosis at the origins of the celiac trunk and superior mesenteric artery.6. Additional findings as above. pt states mother/father both had AAA she is currently on asa/statin vascular surgery consulted -recommending outpt continued monitoring COPD no acute exac continue spiriva, prn nebs CT suggestive of bibasilar mucous plugging will encourage spirometry and flutter valve no indication for antibiotics at this time pt recently completed course of azithromycin 1.5 weeks ago T2DM hold jardiance, a1c 6.4 10/2023 lantus/novolog per protocol HTN chronic, stable hold lisinopril/hctz due to orthostasis consider alternative agent at d/c HLD chronic, stable continue thrice weekly statin therapy JACE cpap at HS Tobacco abuse encourage cessation, nicotine patch declined Morbid obesity, BMI 42.1 diet, lifestyle modifications encourage DVT ppx: SQ Lovenox Dispo: med tele FULL CODE PCP: Esther Admission and Anticipated Discharge Date Admission Date: November 09, 2023 Subjective Pt was seen while still down in the ED. Stated that her symptoms were not completely gone but were improving. Noted that the room was not spinning as much. Review of Systems Review of Systems: All systems reviewed & are unremarkable except as noted in Subjective Physical Exam Physical Exam: General: Alert, oriented. No acute distress Skin: No noted rashes or bruises Psych: Appropriate mood and affect Neuro: No gross deficits HEENT: NC/AT Chest: Nontender to palpation. CV: RRR Resp: Breath sounds rhonchus bilaterally, no increased effort of breathing. Abdomen: Soft, nontender, nondistended. Extremities: No edema in lower extremities bilaterally. Results & Data Results & Data Vital Signs (Past 12 Hours) Vital Signs Pulse Resp BP Pulse Ox O2 Del Method 11/10/23 10:56 Room Air 11/10/23 08:10 81 18 116/60 98 Room Air 11/10/23 06:33 83 18 110/52 L 91 Room Air 11/10/23 04:00 78 16 120/58 L 91 Room Air 11/10/23 00:01 93 H 19 113/66 97 Room Air Diagnostic Findings Abdomen/Pelvis CT 11/09/23 10:[address] WITH IV CONTRAST CT DOSE: 2179.21 mGy.cm HISTORY: Acute generalized abdominal pain with nausea and vomiting dizzy, cough, vomiting TECHNIQUE: Multiaxial CT images of the abdomen and pelvis were performed following the IV administration of Optiray, A dose lowering technique was utilized adhering to the principles of ALARA. COMPARISON STUDY: 04/19/2016 FINDINGS: Cardiomegaly with extensive coronary artery calcifications. Bibasilar mucous plugging with atelectasis versus scarring. Small right Bochdalek hernia. There is no free air. Unremarkable spleen, pancreas, gallbladder and adrenal glands. Unremarkable liver. Patency of the hepatic and portal veins. Mild nonspecific bilateral perinephric stranding. Subcentimeter hypodensities of the kidneys are too small to characterize, likely cysts. 2.5 cm cyst of the inferior pole left kidney. 6 mm calcification of the superior pole left kidney in image 129. 3 mm nonobstructing calculus at the interpolar right kidney. No ureteral calculi or hydronephrosis. Unremarkable urinary bladder, uterus and adnexa. Severe atherosclerosis of the aorta with high-grade stenosis at the origin of the celiac trunk and proximal superior mesenteric artery. There is a least moderate stenosis at the origin of the inferior mesenteric and renal arteries. Infrarenal abdominal aortic ectasia measures up to 3.2 x 2.8 cm. There is high-grade stenosis within the distal abdominal aorta just proximal to the iliac bifurcation. Fusiform dilation of the left common iliac artery, 2.5 cm. There is no lymphadenopathy identified. Subcentimeter duodenal diverticulum. Colonic diverticulosis. Mural fibrofatty changes of the right hemicolon. Appendectomy. No ascites or mesenteric inflammation. Unremarkable soft tissues. There is no acute fracture. Degenerative changes of the spine, pelvis and hips. IMPRESSION: 1. No bowel obstruction or bowel wall thickening. 2. Bibasilar mucous plugging with opacities favoring atelectasis or scarring. 3. Nonobstructing renal calculi. No ureteral calculi or hydronephrosis. 4. Severe atherosclerosis with fusiform aneurysmal dilation of the infrarenal abdominal aorta measuring up to 3.2 cm. Dilation of the left common iliac artery measures 2.5 cm. 5. High-grade stenosis of the distal abdominal aorta just proximal to the bifurcation with additional high-grade stenosis at the origins of the celiac trunk and superior mesenteric artery. 6. Additional findings as above. ACT 112: Negative or not required by law. The above report was generated using voice recognition software. It may contain grammatical, syntax or spelling errors. Electronically signed by: Romero Gonzalez M.D. 11/09/2023 12:00 PM Chest X-Ray 11/09/23 10:08 XR chest 1V portable CLINICAL HISTORY: dizzy, cough, vomiting TECHNIQUE: Single frontal radiograph of the chest was obtained. Comparison: None available at the time of this dictation. FINDINGS: No lines and tubes are seen. Calcified aortic knob is seen. The lungs are clear. No evidence of pleural effusion or pneumothorax. IMPRESSION: No acute abnormalities and in particular no radiographic evidence of pneumonia. ACT 112: Negative or not required by law. Electronically signed by: Magan Doan M.D. 11/09/2023 10:[address] 11/09/23 10:09 CT head/brain wo con CLINICAL HISTORY: 73 years-old Female with dizzy, cough, vomiting. Acute dizziness with cough and vomiting TECHNIQUE: Multiple axial CT images of the head were obtained without contrast. A dose lowering technique was utilized adhering to the principles of ALARA. COMPARISON: None. FINDINGS: No acute intracranial hemorrhage, midline shift, intracranial mass, territorial ischemia or abnormal extra-axial collection. Involutional changes with mild white matter hypodensities favoring chronic microvascular ischemic disease. Mild ventriculomegaly likely on ex vacuo basis. The calvarium is intact. There are 2 partially imaged soft tissue attenuating foci within the right lateral cheek, the more anterior partially imaged focus measures 2.5 cm on image 1 series 3 and a lesion involving the superficial right parotid gland on image 3 series 3 measures 1.8 cm. The paranasal sinuses, mastoid air cells, and middle ear cavities are clear. IMPRESSION: 1. No acute intracranial abnormality. 2. Partially imaged soft tissue attenuating foci within the right cheek. Correlation with nonemergent follow-up ultrasound recommended on an outpatient basis. ACT 112: Negative or not required by law. The above report was generated using voice recognition software. It may contain grammatical, syntax or spelling errors. Electronically signed by: Romero Gonzalez M.D. 11/09/2023 11:51 AM Carotid Doppler Study 11/09/23 15:03 US carotid doppler BI CLINICAL HISTORY: 73 years-old Female with dizziness. COMPARISON: None TECHNIQUE: Multiple real time sonographic images of the carotid bifurcations were obtained assessing costa scale, color Doppler and spectral wave form appearance FINDINGS: RIGHT CAROTID: The peak systolic velocity measurements in the right ICA is 140 cm/sec. The end diastolic velocity measured 30 cm/sec. The ICA to CCA ratio measured 1.61 which correlates with a stenosis of 50-69%. Moderate athero sclerosis. LEFT CAROTID: The peak systolic velocity measured in the left ICA is 184 cm/sec. The end diastolic velocity measured 29 cm/sec. The ICA to CCA ratio measured 1.46 which correlates with a stenosis of 50-69%. Moderate atherosclerosis. There is normal antegrade vertebral flow bilaterally. IMPRESSION: 1. Moderate atherosclerosis with elevated peak systolic velocities correlating with 50-69% stenosis of the bilateral internal carotid arteries.. 2. Normal antegrade vertebral flow bilaterally. ACT 112: Negative or not required by law. The above report was generated using voice recognition software. It may contain grammatical, syntax or spelling errors. Electronically signed by: Romero Gonzalez M.D. 11/09/2023 5:[address] 11/10/23 10:00 CT head/brain wo con CLINICAL HISTORY: repeat r/o cva Technique: Contiguous axial CT images of the head were acquired from the base of the skull to the vertex without intravenous contrast administration. Images were viewed in brain, subdural and bone windows. Automated dose lowering techniques and/or adjustment according to patient size were utilized for this exam. Comparison: Comparison is made to CT head 11/09/2023 Findings: Areas of decreased attenuation are present in the periventricular and subcortical white matter bilaterally consistent with small vessel ischemic disease. Generalized cerebral atrophy with commensurate enlargement of the ventricles, sulci, and cisterns is also present. There is no acute intracranial hemorrhage or evidence of acute territorial infarction. No shift of the midline structures, mass effect, or extra-axial abnormalities are shown. Atherosclerotic calcifications are present in the intracranial segments of the internal carotid arteries. Imaged portions of the paranasal sinuses and mastoid air cells are clear. The orbits appear normal. There are no acute fractures of the calvaria or scalp swelling. Impression: No acute intracranial hemorrhage, no evidence of acute territorial infarction or other acute intracranial disease process. ACT 112: Negative or not required by law. Electronically signed by: Magan Doan M.D. 11/10/2023 10:18 AM Chest X-Ray 11/11/23 05:31 XR chest 1V portable CLINICAL HISTORY: wheezes TECHNIQUE: Single frontal radiograph of the chest was obtained. Comparison: Comparison is made to chest radiograph 11/09/2023 FINDINGS: No lines and tubes are seen. Calcified aortic knob is seen. Atelectasis is seen in the left lower lung. No evidence of pleural effusion or pneumothorax. IMPRESSION: No acute chest disease. ACT 112: Negative or not required by law. Electronically signed by: Magan Doan M.D. 11/11/2023 7:11 AM
--- NOTE | 2023-11-10 16:09 | Electrocardiogram Report ---
Test Reason : Blood Pressure : / mmHG Vent. Rate : 076 BPM Atrial Rate : 076 BPM P-R Int : 224 ms QRS Dur : 078 ms QT Int : 352 ms P-R-T Axes : 069 -15 054 degrees QTc Int : 396 ms Sinus rhythm with 1st degree A-V block Low voltage QRS Borderline ECG When compared with ECG of 09-NOV-2023 10:25, No significant change was found Confirmed by Juwan Owens ([id number]) on 11/10/2023 4:09:20 PM Referred By: REFERRED SELF Confirmed By:Juwan Owens
[2023-11-11] MEDS: MECLIZINE HCL 25 MG TAB PO PRN (04:51)
[2023-11-11] MEDS: ONDANSETRON INJ 2 MG/ML 2 ML VIAL IV PRN (04:51)
[2023-11-11 05:02] LABS: Hematocrit (blood only) 34.6 % (37.0-47.0); Hemoglobin 11.2 g/dl (12.0-16.0); Mean Corpuscular Hemoglobin 30.7 pg (25.0-34.0); Mean Corpuscular Hgb Conc 32.4 g/dL (32.0-36.0); Mean Corpuscular Volume 94.8 fL (80.0-100.0); Mean Platelet Volume 9.1 fL (9.4-12.4); Platelet Count 249 K/uL (130-400); RDW Coefficient of Variation 13.8 % (11.5-14.5); RDW Standard Deviation 47.9 fL (36.4-46.3); Red Blood Count 3.65 M/uL (4.20-5.40); White Blood Count 7.32 K/ul (4.8-10.8)
[2023-11-11] MEDS: SODIUM CHLORIDE 0.9% 1,000 ML IV ONE (05:18)
[2023-11-11 05:19] LABS: Albumin Globulin Ratio 1.4 (0.9-2); Albumin Level 3.4 gm/dl (3.4-5.0); Bilirubin,Total 0.4 mg/dl (0.2-1.0); Calcium 8.9 mg/dl (8.6-10.3); Creatinine Clr Calc Pharmacy 59.6 ml/min; Est GFR (African American) 60.9 ml/min; Est GFR (Non-African American) 52.5 ml/min; Globulin 2.5 gm/dl (2.5-4.0); Magnesium 2.1 mg/dl (1.7-2.4); Phosphorus 3.3 mg/dl (2.5-4.9); Potassium 4.4 mmol/L (3.5-5.1); Total Protein 5.9 gm/dl (6.0-8.3)
[2023-11-11] MEDS: ALBUT/IPRATROP 3MG/0.5MG NEB 3 ML VIAL NEB STA (06:27)
--- NOTE | 2023-11-11 07:13 | XRay Report ---
XR chest 1V portable CLINICAL HISTORY: wheezes TECHNIQUE: Single frontal radiograph of the chest was obtained. Comparison: Comparison is made to chest radiograph 11/09/2023 FINDINGS: No lines and tubes are seen. Calcified aortic knob is seen. Atelectasis is seen in the left lower manuel g. No evidence of pleural effusion or pneumothorax. IMPRESSION: No acute chest disease. ACT 112: Negative or not required by law. Electronically signed by: Magan Doan M.D. 11/11/2023 7:11 AM
--- NOTE | 2023-11-11 19:54 | Hospitalist Progress Note ---
Date of Service November 11, 2023 Assessment & Plan (1) Orthostatic hypotension: (2) Labyrinthitis: (3) Stenosis of abdominal aorta: (4) Abdominal aneurysm: (5) Morbid obesity with BMI of 40.0-44.9, adult: (6) Diabetes: (7) Hyperlipidemia: (8) Chronic obstructive pulmonary disease: Plan This is a 73-year-old female who has a significant past medical history of T2DM with diabetic peripheral angiopathy, COPD, HTN, HLD, JACE on CPAP, morbid obesity, CKD stage III, tobacco use disorder and anxiety who presented to the ED secondary to weakness and dizziness x 1 day. Dizziness Orthostatic hypotension pt presents w acute onset dizziness, nausea and diaphoresis she had positive orthostatics in the ED received gentle hydration orthostatics BID hold outpatient lisinopril/HCTZ - may need to consider alternative agent due to orthostasis and recent ROGER as OP -BP has remined stable carotid dopplers noting 50-69% stenosis of bilateral carotids echo-EF 50-69% stenosis bilaterally Continue tele monitoring pt would benefit from ZIO patch as outpatient discussed with pt regarding stroke r/o given dizziness and hx of diabetes, she currently is refusing MRI due to claustrophobia despite anxiolytic Pt agreeable to repeat Head CT-unremarkable AM anemia panel pending- hgb ~11 BPPV vs Labyrinthitis recent URI as outpt meclizine prn PT ordered for Kirti Maneuver, appreciated -consider ENT referral if not successful CKD-3 baseline cr 1.1 cr at baseline but pt with elevated BUN likely some underlying dehydration in conjunction with orthostasis IV fluid hydration Carotid Artery Stenosis Stenosis of Aorta Infrarenal abdominal aortic aneurysm --CT abd/pt: . No bowel obstruction or bowel wall thickening.2. Bibasilar mucous plugging with opacities favoring atelectasis or scarring.3. Nonobstructing renal calculi. No ureteral calculi or hydronephrosis.4. Severe atherosclerosis with fusiform aneurysmal dilation of the infrarenal abdominal aorta measuring up to 3.2 cm. Dilation of the left common iliac artery measures 2.5 cm.5. High-grade stenosis of the distal abdominal aorta just proximal to the bifurcation with additional high-grade stenosis at the origins of the celiac trunk and superior mesenteric artery.6. Additional findings as above. pt states mother/father both had AAA she is currently on asa/statin vascular surgery consulted -recommending outpt continued monitoring R facial lesion Lesion involving the superficial right parotid gland noted on CT head Recommending outpt followup for further evaluation COPD no acute exac continue spiriva, prn nebs CT suggestive of bibasilar mucous plugging will encourage spirometry and flutter valve no indication for antibiotics at this time pt recently completed course of azithromycin 1.5 weeks ago T2DM hold jardiance, a1c 6.4 10/2023 lantus/novolog per protocol HTN chronic, stable hold lisinopril/hctz due to orthostasis consider alternative agent at d/c HLD chronic, stable continue thrice weekly statin therapy JACE cpap at HS Tobacco abuse encourage cessation, nicotine patch declined Morbid obesity, BMI 42.1 diet, lifestyle modifications encourage DVT ppx: SQ Lovenox Dispo: med tele FULL CODE PCP: Esther Admission and Anticipated Discharge Date Admission Date: November 09, 2023 Subjective Pt was seen in her room. States that early this AM she had an episode where she turned in bed and was dizzy and nauseous. Antiemetics and prn meclizine helped. Review of Systems Review of Systems: All systems reviewed & are unremarkable except as noted in Subjective Physical Exam Physical Exam: General: Alert, oriented. No acute distress Skin: No noted rashes or bruises Psych: Appropriate mood and affect Neuro: No gross deficits HEENT: NC/AT Chest: Nontender to palpation. CV: RRR Resp: Breath sounds rhonchus bilaterally, no increased effort of breathing. Abdomen: Soft, nontender, nondistended. Extremities: No edema in lower extremities bilaterally. Results & Data Results & Data Vital Signs (Past 12 Hours) Vital Signs Temp Pulse Pulse Resp BP Pulse Ox O2 Del Method 11/11/23 16:02 37.0 C 82 20 123/88 95 Room Air 11/11/23 15:00 83 11/11/23 11:31 36.7 C 90 18 128/68 96 Room Air 11/11/23 10:52 Room Air 11/11/23 08:01 36.5 C 83 16 108/62 94 Room Air 11/11/23 07:30 73 11/11/23 06:29 77 18 94 Room Air Diagnostic Findings Abdomen/Pelvis CT 11/09/23 10:[address] WITH IV CONTRAST CT DOSE: 2179.21 mGy.cm HISTORY: Acute generalized abdominal pain with nausea and vomiting dizzy, cough, vomiting TECHNIQUE: Multiaxial CT images of the abdomen and pelvis were performed following the IV administration of Optiray, A dose lowering technique was utilized adhering to the principles of ALARA. COMPARISON STUDY: 04/19/2016 FINDINGS: Cardiomegaly with extensive coronary artery calcifications. Bibasilar mucous plugging with atelectasis versus scarring. Small right Bochdalek hernia. There is no free air. Unremarkable spleen, pancreas, gallbladder and adrenal g lands. Unremarkable liver. Patency of the hepatic and portal veins. Mild nonspecific bilateral perinephric stranding. Subcentimeter hypodensities of the kidneys are too small to characterize, likely cysts. 2.5 cm cyst of the inferior pole left kidney. 6 mm calcification of the superior pole left kidney in image 129. 3 mm nonobstructing calculus at the interpolar right kidney. No ureteral calculi or hydronephrosis. Unremarkable urinary bladder, uterus and adnexa. Severe atherosclerosis of the aorta with high-grade stenosis at the origin of the celiac trunk and proximal superior mesenteric artery. There is a least moderate stenosis at the origin of the inferior mesenteric and renal arteries. Infrarenal abdominal aortic ectasia measures up to 3.2 x 2.8 cm. There is high-grade stenosis within the distal abdominal aorta just proximal to the iliac bifurcation. Fusiform dilation of the left common iliac artery, 2.5 cm. There is no lymphadenopathy identified. Subcentimeter duodenal diverticulum. Colonic diverticulosis. Mural fibrofatty changes of the right hemicolon. Appendectomy. No ascites or mesenteric inflammation. Unremarkable soft tissues. There is no acute fracture. Degenerative changes of the spine, pelvis and hips. IMPRESSION: 1. No bowel obstruction or bowel wall thickening. 2. Bibasilar mucous plugging with opacities favoring atelectasis or scarring. 3. Nonobstructing renal calculi. No ureteral calculi or hydronephrosis. 4. Severe atherosclerosis with fusiform aneurysmal dilation of the infrarenal abdominal aorta measuring up to 3.2 cm. Dilation of the left common iliac artery measures 2.5 cm. 5. High-grade stenosis of the distal abdominal aorta just proximal to the bifurcation with additional high-grade stenosis at the origins of the celiac trunk and superior mesenteric artery. 6. Additional findings as above. ACT 112: Negative or not required by law. The above report was generated using voice recognition software. It may contain grammatical, syntax or spelling errors. Electronically signed by: Romero Gonzalez M.D. 11/09/2023 12:00 PM Chest X-Ray 11/09/23 10:08 XR chest 1V portable CLINICAL HISTORY: dizzy, cough, vomiting TECHNIQUE: Single frontal radiograph of the chest was obtained. Comparison: None available at the time of this dictation. FINDINGS: No lines and tubes are seen. Calcified aortic knob is seen. The lungs are clear. No evidence of pleural effusion or pneumothorax. IMPRESSION: No acute abnormalities and in particular no radiographic evidence of pneumonia. ACT 112: Negative or not required by law. Electronically signed by: Magan Doan M.D. 11/09/2023 10:[address] 11/09/23 10:09 CT head/brain wo con CLINICAL HISTORY: 73 years-old Female with dizzy, cough, vomiting. Acute dizziness with cough and vomiting TECHNIQUE: Multiple axial CT images of the head were obtained without contrast. A dose lowering technique was utilized adhering to the principles of ALARA. COMPARISON: None. FINDINGS: No acute intracranial hemorrhage, midline shift, intracranial mass, territorial ischemia or abnormal extra-axial collection. Involutional changes with mild white matter hypodensities favoring chronic microvascular ischemic disease. Mild ventriculomegaly likely on ex vacuo basis. The calvarium is intact. There are 2 partially imaged soft tissue attenuating foci within the right lateral cheek, the more anterior partially imaged focus measures 2.5 cm on image 1 series 3 and a lesion involving the superficial right parotid gland on image 3 series 3 measures 1.8 cm. The paranasal sinuses, mastoid air cells, and middle ear cavities are clear. IMPRESSION: 1. No acute intracranial abnormality. 2. Partially imaged soft tissue attenuating foci within the right cheek. Correlation with nonemergent follow-up ultrasound recommended on an outpatient basis. ACT 112: Negative or not required by law. The above report was generated using voice recognition software. It may contain grammatical, syntax or spelling errors. Electronically signed by: Romero Gonzalez M.D. 11/09/2023 11:51 AM Carotid Doppler Study 11/09/23 15:03 US carotid doppler BI CLINICAL HISTORY: 73 years-old Female with dizziness. COMPARISON: None TECHNIQUE: Multiple real time sonographic images of the carotid bifurcations were obtained assessing costa scale, color Doppler and spectral wave form appearance FINDINGS: RIGHT CAROTID: The peak systolic velocity measurements in the right ICA is 140 cm/sec. The end diastolic velocity measured 30 cm/sec. The ICA to CCA ratio measured 1.61 which correlates with a stenosis of 50-69%. Moderate atherosclerosis. LEFT CAROTID: The peak systolic velocity measured in the left ICA is 184 cm/sec. The end diastolic velocity measured 29 cm/sec. The ICA to CCA ratio measured 1.46 which correlates with a stenosis of 50-69%. Moderate atherosclerosis. There is normal antegrade vertebral flow bilaterally. IMPRESSION: 1. Moderate atherosclerosis with elevated peak systolic velocities correlating with 50-69% stenosis of the bilateral internal carotid arteries.. 2. Normal antegrade vertebral flow bilaterally. ACT 112: Negative or not required by law. The above report was generated using voice recognition software. It may contain grammatical, syntax or spelling errors. Electronically signed by: Romero Gonzalez M.D. 11/09/2023 5:[address] 11/10/23 10:00 CT head/brain wo con CLINICAL HISTORY: repeat r/o cva Technique: Contiguous axial CT images of the head were acquired from the base of the skull to the vertex without intravenous contrast administration. Images were viewed in brain, subdural and bone windows. Automated dose lowering techniques and/or adjustment according to patient size were utilized for this exam. Comparison: Comparison is made to CT head 11/09/2023 Findings: Areas of decreased attenuation are present in the periventricular and subcortical white matter bilaterally consistent with small vessel ischemic disease. Generalized cerebral atrophy with commensurate enlargement of the ventricles, sulci, and cisterns is also present. There is no acute intracranial hemorrhage or evidence of acute territorial infarction. No shift of the midline structures, mass effect, or extra-axial abnormalities are shown. Atherosclerotic calcifications are present in the intracranial segments of the internal carotid arteries. Imaged portions of the paranasal sinuses and mastoid air cells are clear. The orbits appear normal. There are no acute fractures of the calvaria or scalp swelling. Impression: No acute intracranial hemorrhage, no evidence of acute territorial infarction or other acute intracranial disease process. ACT 112: Negative or not required by law. Electronically signed by: Magan Doan M.D. 11/10/2023 10:18 AM Chest X-Ray 11/11/23 05:31 XR chest 1V portable CLINICAL HISTORY: wheezes TECHNIQUE: Single frontal radiograph of the chest was obtained. Comparison: Comparison is made to chest radiograph 11/09/2023 FINDINGS: No lines and tubes are seen. Calcified aortic knob is seen. Atelectasis is seen in the left lower lung. No evidence of pleural effusion or pneumothorax. IMPRESSION: No acute chest disease. ACT 112: Negative or not required by law. Electronically signed by: Magan Doan M.D. 11/11/2023 7:11 AM
[2023-11-12 05:06] LABS: Hematocrit (blood only) 34.3 % (37.0-47.0); Hemoglobin 11.1 g/dl (12.0-16.0); Mean Corpuscular Hemoglobin 30.2 pg (25.0-34.0); Mean Corpuscular Hgb Conc 32.4 g/dL (32.0-36.0); Mean Corpuscular Volume 93.2 fL (80.0-100.0); Platelet Count 255 K/uL (130-400); RDW Coefficient of Variation 13.8 % (11.5-14.5); RDW Standard Deviation 47.3 fL (36.4-46.3); Red Blood Count 3.68 M/uL (4.20-5.40); White Blood Count 6.39 K/ul (4.8-10.8)
[2023-11-12 05:23] LABS: Albumin Globulin Ratio 1.4 (0.9-2); Albumin Level 3.5 gm/dl (3.4-5.0); BUN Creatinine Ratio 22.2 (10-20); Bilirubin,Total 0.4 mg/dl (0.2-1.0); Calcium 9.1 mg/dl (8.6-10.3); Est GFR (African American) 52.8 ml/min; Est GFR (Non-African American) 45.5 ml/min; Globulin 2.5 gm/dl (2.5-4.0); Phosphorus 3.4 mg/dl (2.5-4.9); Potassium 4.4 mmol/L (3.5-5.1)
[2023-11-12 05:41] LABS: Ferritin 69.1 ng/ml (8-388)
[2023-11-12 05:44] LABS: Folate (Folic Acid),Ser orPlas 15.78 ng/ml (>5.38)
--- NOTE | 2023-11-12 13:57 | Discharge Summary ---
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 She states she was sitting at the kitchen table whenever she acutely developed nausea and dizziness, "the room was spinning." She has never had anything like this before. She states she tried to stand up but do if she stood up further she might pass out and therefore she sat down. She got very diaphoretic. She took her blood sugar and it was in the 120s. She did not take her blood pressure. She was very nauseated and did experience dry heaves. She states her symptoms be exacerbated with quick head movements or position change. She denies any associated chest pain, palpitations or shortness of breath. She states approximately 1-1/2 weeks ago she completed a azithromycin/prednisone rescue kit secondary to COPD exacerbation and upper respiratory infection. She otherwise denies any acute illness and has otherwise been feeling quite well. She denies any sick contacts. She has been eating and drinking well. She continues to smoke half a pack a day. She has been compliant with her medications. She denies any fever, chills, sweats, chest pain, shortness of breath, hemoptysis, abdominal pain, change in bowel or urinary habits. In ED patient remained hemodynamically stable. She did have positive orthostatic blood pressures with her blood pressure being 107 systolic while lying in dropping to 68/42 while standing. She did receive 1 L of IV fluids. She also received meclizine which feels alleviated her symptoms. She did recently get started on new medication Jardiance. Her metformin was discontinued due to slight elevation in her c reatinine. Her most recent A1c was 6.4. In ED after receiving Zofran, fluids and meclizine her symptoms have improved and she no longer has symptoms with head movements. Admission Exam Per Admitting Provider Constitutional: WD/WN, morbidly obese, F, vitals as above, NAD, sitting up in bed, pleasant, conversing easily Head: Normocephalic, Atraumatic Eyes: PERRL, conjunctivae normal, anicteric sclerae , no nystagmus ENMT: external ear and nose normal, IAC clear no cerumen, R TM white good landmarks, L serous otitis, no erythema, oropharynx normal Neck: trachea midline, no thyromegaly normal visual inspection Respiratory: normal respiratory effort, lungs clear to auscultation, faint exp wheeze, no rales, rhonchi. Normal insp/exp effort, no accessory muscle use Cardiovascular: RRR, no murmur, trace lower ext edema Vessels: no JVD or carotid bruit Chest: normal inspection of chest Abdomen: normal bowel sounds, soft, nontender, no hepatosplenomegaly Musculoskeletal: no cyanosis or clubbing, extremities motor strength 5/5 Skin: no rashes, warm and dry normal turgor Neurologic: PERRL, EOMI, accommodation nl, no face palsy, no dysarthria CN's II-XI intact bilaterally and moves all extremities , dizziness exac with going from lying to sitting, but did not exac with quick head movements Psychiatric: A+Ox3, euthymic affect Lymphatic: no cervical or axillary lymphadenopathy : deferred Principal Dx & Hospital Course #1 = Principal Diagnosis (1) Orthostatic hypotension: (2) Labyrinthitis: (3) Stenosis of abdominal aorta: (4) Abdominal aneurysm: (5) Morbid obesity with BMI of 40.0-44.9, adult: (6) Diabetes: (7) Hyperlipidemia: (8) Chronic obstructive pulmonary disease: Plan This is a 73-year-old female who has a significant past medical history of T2DM with diabetic peripheral angiopathy, COPD, HTN, HLD, JACE on CPAP, morbid obesity, CKD stage III, tobacco use disorder and anxiety who presented to the ED secondary to weakness and dizziness x 1 day. Dizziness Orthostatic hypotension pt presents w acute onset dizziness, nausea and diaphoresis she had positive orthostatics in the ED received gentle hydration orthostatics BID held outpatient lisinopril/HCTZ - discontinued on discharge due to orthostasis -BP has remained stable carotid dopplers noting 50-69% stenosis of bilateral carotids echo-EF 50-69% Continue tele monitoring pt would benefit from ZIO patch as outpatient Previous provider had discussion with pt regarding stroke r/o given dizziness and hx of diabetes, she currently is refusing MRI due to claustrophobia despite anxiolytic Pt agreeable to repeat Head CT-unremarkable hgb ~11, anemia less likely a cause. Iron, B12 and folate levels were all normal. BPPV vs Labyrinthitis recent URI as outpt meclizine prn PT ordered -ordered for possible Kirti. Louie Gillis performed and was negative -consider ENT referral CKD-3 baseline cr 1.1 cr at baseline but pt with elevated BUN likely some underlying dehydration in conjunction with orthostasis IV fluid hydration Cr at baseline on discharge Carotid Artery Stenosis Stenosis of Aorta Infrarenal abdominal aortic aneurysm --CT abd/pt: . No bowel obstruction or bowel wall thickening.2. Bibasilar mucous plugging with opacities favoring atelectasis or scarring.3. Nonobstructing renal calculi. No ureteral calculi or hydronephrosis.4. Severe atherosclerosis with fusiform aneurysmal dilation of the infrarenal abdominal aorta measuring up to 3.2 cm. Dilation of the left common iliac artery measures 2.5 cm.5. High-grade stenosis of the distal abdominal aorta just proximal to the bifurcation with additional high-grade stenosis at the origins of the celiac trunk and superior mesenteric artery.6. Additional findings as above. pt states mother/father both had AAA she is currently on asa/statin vascular surgery consulted, noted the following: "Pt with moderate stenosis of mid/distal aorta, asymptomatic. She likely does not walk fast or far enough to claudicate d/t her back pain/arthritis. Will reeval in office in 6 months with ANNIE testing. Pt with small AAA 3.2cm and L iliac art aneurysm 2.3cm. These require surveillance US in 1 year. WIll arrange at follow up visit. Pt with BL carotid stenosis of 60-59%, asymptomatic. No need for surgical intervention at this time. WIll reeval in office in 6 months with a new carotid US for surveillance. " R facial lesion Lesion involving the superficial right parotid gland noted on CT head Recommending outpt followup for further evaluation COPD no acute exacerbation continue spiriva, prn nebs CT suggestive of bibasilar mucous plugging Encouraged spirometry and flutter valve no indication for antibiotics at this time pt recently completed course of azithromycin 1.5 weeks ago T2DM held jardiance, a1c 6.4 10/2023 lantus/novolog per protocol resume home meds on discharge HTN chronic, stable held lisinopril/hctz due to orthostasis, discontinued on discharge BP stable on discharge Consider alternative agent as needed HLD chronic, stable continue thrice weekly statin therapy JACE cpap at HS Tobacco abuse encourage cessation, nicotine patch declined Morbid obesity, BMI 42.1 diet, lifestyle modifications encourage Discharge Exam General: Alert, oriented. No acute distress Skin: No noted rashes or bruises Psych: Appropriate mood and affect Neuro: No gross deficits HEENT: NC/AT Chest: Nontender to palpation. CV: RRR Resp: Breath sounds rhonchus bilaterally, no increased effort of breathing. Abdomen: Soft, nontender, nondistended. Extremities: No edema in lower extremities bilaterally. Updated Medication List Medication Instructions Recorded Confirmed Type alprazolam 0.25 mg tablet 0.25 mg PO TID PRN Anxiety 03/12/22 11/09/23 History aspirin 81 mg tablet,delayed 81 mg PO HS 03/12/22 11/09/23 History release atorvastatin 20 mg tablet 20 mg PO MOWEFR 03/12/22 11/09/23 History ipratropium 0.5 mg-albuterol 3 mg 3 ml inhalation Q4H PRN Wheezing 03/12/22 11/09/23 History (2.5 mg base)/3 mL nebulization soln pantoprazole 20 mg tablet,delayed 20 mg PO HS 03/12/22 11/09/23 History release tramadol 50 mg tablet 50 mg PO Q6H PRN Pain 03/12/22 11/09/23 History empagliflozin 10 mg tablet 10 mg PO DAILY 11/09/23 11/09/23 History (Jardiance) tiotropium bromide 18 mcg capsule 18 mcg inhalation DAILY 11/09/23 11/09/23 History with inhalation device meclizine 25 mg tablet 25 mg PO Q8H PRN dizziness #60 tabs 11/12/23 Rx ondansetron 4 mg disintegrating 4 mg PO Q8H PRN nausea and 11/12/23 Rx tablet vomiting #60 tabs Hospital Stay Data Consultations 11/09/23 13:25 ED Decision to Admit Stat 11/09/23 15:03 Consult Vascular Surgery Routine Diagnostic Imagining Performed 11/09/23 10:08 CT abd pelvis IV con only Stat 11/09/23 10:09 CT head/brain wo con Stat 11/09/23 15:03 US carotid doppler BI Routine 11/10/23 10:00 CT head/brain wo con Routine Abdomen/Pelvis CT 11/09/23 10:[address] WITH IV CONTRAST CT DOSE: 2179.21 mGy.cm HISTORY: Acute generalized abdominal pain with nausea and vomiting dizzy, cough, vomiting TECHNIQUE: Multiaxial CT images of the abdomen and pelvis were performed following the IV administration of Optiray, A dose lowering technique was utilized adhering to the principles of ALARA. COMPARISON STUDY: 04/19/2016 FINDINGS: Cardiomegaly with extensive coronary artery calcifications. Bibasilar mucous plugging with atelectasis versus scarring. Small right Bochdalek hernia. There is no free air. Unremarkable spleen, pancreas, gallbladder and adrenal glands. Unremarkable liver. Patency of the hepatic and portal veins. Mild nonspecific bilateral perinephric stranding. Subcentimeter hypodensities of the kidneys are too small to characterize, likely cysts. 2.5 cm cyst of the inferior pole left kidney. 6 mm calcification of the superior pole left kidney in image 129. 3 mm nonobstructing calculus at the interpolar right kidney. No ureteral calculi or hydronephrosis. Unremarkable urinary bladder, uterus and adnexa. Severe atherosclerosis of the aorta with high-grade stenosis at the origin of the celiac trunk and proximal superior mesenteric artery. There is a least moderate stenosis at the origin of the inferior mesenteric and renal arteries. Infrarenal abdominal aortic ectasia measures up to 3.2 x 2.8 cm. There is high-grade stenosis within the distal abdominal aorta just proximal to the iliac bifurcation. Fusiform dilation of the left common iliac artery, 2.5 cm. There is no lymphadenopathy identified. Subcentimeter duodenal diverticulum. Colonic diverticulosis. Mural fibrofatty changes of the right hemicolon. Appendectomy. No ascites or mesenteric inflammation. Unremarkable soft tissues. There is no acute fracture. Degenerative changes of the spine, pelvis and hips. IMPRESSION: 1. No bowel obstruction or bowel wall thickening. 2. Bibasilar mucous plugging with opacities favoring atelectasis or scarring. 3. Nonobstructing renal calculi. No ureteral calculi or hydronephrosis. 4. Severe atherosclerosis with fusiform aneurysmal dilation of the infrarenal abdominal aorta measuring up to 3.2 cm. Dilation of the left common iliac artery measures 2.5 cm. 5. High-grade stenosis of the distal abdominal aorta just proximal to the bifurcation with additional high-grade stenosis at the origins of the celiac trunk and superior mesenteric artery. 6. Additional findings as above. ACT 112: Negative or not required by law. The above report was generated using voice recognition software. It may contain grammatical, syntax or spelling errors. Electronically signed by: Romero Gonzalez M.D. 11/09/2023 12:00 PM Chest X-Ray 11/09/23 10:08 XR chest 1V portable CLINICAL HISTORY: dizzy, cough, vomiting TECHNIQUE: Single frontal radiograph of the chest was obtained. Comparison: None available at the time of this dictation. FINDINGS: No lines and tubes are seen. Calcified aortic knob is seen. The lungs are clear. No evidence of pleural effusion or pneumothorax. IMPRESSION: No acute abnormalities and in particular no radiographic evidence of pneumonia. ACT 112: Negative or not required by law. Electronically signed by: Magan Doan M.D. 11/09/2023 10:[address] 11/09/23 10:09 CT head/brain wo con CLINICAL HISTORY: 73 years-old Female with dizzy, cough, vomiting. Acute dizziness with cough and vomiting TECHNIQUE: Multiple axial CT images of the head were obtained without contrast. A dose lowering technique was utilized adhering to the principles of ALARA. COMPARISON: None. FINDINGS: No acute intracranial hemorrhage, midline shift, intracranial mass, territorial ischemia or abnormal extra-axial collection. Involutional changes with mild white matter hypodensities favoring chronic microvascular ischemic disease. Mild ventriculomegaly likely on ex vacuo basis. The calvarium is intact. There are 2 partially imaged soft tissue attenuating foci within the right lateral cheek, the more anterior partially imaged focus measures 2.5 cm on image 1 series 3 and a lesion involving the superficial right parotid gland on image 3 series 3 measures 1.8 cm. The paranasal sinuses, mastoid air cells, and middle ear cavities are clear. IMPRESSION: 1. No acute intracranial abnormality. 2. Partially imaged soft tissue attenuating foci within the right cheek. Correlation with nonemergent follow-up ultrasound recommended on an outpatient basis. ACT 112: Negative or not required by law. The above report was generated using voice recognition software. It may contain grammatical, syntax or spelling errors. Electronically signed by: Romero Gonzalez M.D. 11/09/2023 11:51 AM Carotid Doppler Study 11/09/23 15:03 US carotid doppler BI CLINICAL HISTORY: 73 years-old Female with dizziness. COMPARISON: None TECHNIQUE: Multiple real time sonographic images of the carotid bifurcations were obtained assessing costa scale, color Doppler and spectral wave form appearance FINDINGS: RIGHT CAROTID: The peak systolic velocity measurements in the right ICA is 140 cm/sec. The end diastolic velocity measured 30 cm/sec. The ICA to CCA ratio measured 1.61 which correlates with a stenosis of 50-69%. Moderate atherosclerosis. LEFT CAROTID: The peak systolic velocity measured in the left ICA is 184 cm/sec. The end diastolic velocity measured 29 cm/sec. The ICA to CCA ratio measured 1.46 which correlates with a stenosis of 50-69%. Moderate atherosclerosis. There is normal antegrade vertebral flow bilaterally. IMPRESSION: 1. Moderate atherosclerosis with elevated peak systolic velocities correlating with 50-69% stenosis of the bilateral internal carotid arteries.. 2. Normal antegrade vertebral flow bilaterally. ACT 112: Negative or not required by law. The above report was generated using voice recognition software. It may contain grammatical, syntax or spelling errors. Electronically signed by: Romero Gonzalez M.D. 11/09/2023 5:[address] 11/10/23 10:00 CT head/brain wo con CLINICAL HISTORY: repeat r/o cva Technique: Contiguous axial CT images of the head were acquired from the base of the skull to the vertex without intravenous contrast administration. Images were viewed in brain, subdural and bone windows. Automated dose lowering techniques and/or adjustment according to patient size were utilized for this exam. Comparison: Comparison is made to CT head 11/09/2023 Findings: Areas of decreased attenuation are present in the periventricular and subcortical white matter bilaterally consistent with small vessel ischemic disease. Generalized cerebral atrophy with commensurate enlargement of the ventricles, sulci, and cisterns is also present. There is no acute intracranial hemorrhage or evidence of acute territorial infarction. No shift of the midline structures, mass effect, or extra-axial abnormalities are shown. Atherosclerotic calcifications are present in the intracranial segments of the internal carotid arteries. Imaged portions of the paranasal sinuses and mastoid air cells are clear. The orbits appear normal. There are no acute fractures of the calvaria or scalp swelling. Impression: No acute intracranial hemorrhage, no evidence of acute territorial infarction or other acute intracranial disease process. ACT 112: Negative or not required by law. Electronically signed by: Magan Doan M.D. 11/10/2023 10:18 AM Chest X-Ray 11/11/23 05:31 XR chest 1V portable CLINICAL HISTORY: wheezes TECHNIQUE: Single frontal radiograph of the chest was obtained. Comparison: Comparison is made to chest radiograph 11/09/2023 FINDINGS: No lines and tubes are seen. Calcified aortic knob is seen. Atelectasis is seen in the left lower lung. No evidence of pleural effusion or pneumothorax. IMPRESSION: No acute chest disease. ACT 112: Negative or not required by law. Electronically signed by: Magan Doan M.D. 11/11/2023 7:11 AM Discharge Instructions Given to Patient (Per Discharging Provider) Ms. Zabala, You were admitted with concerning vertigo. We treated you with IV fluids and did some maneuvers on you to help. We are discharging you home with medications to help the vertigo and nausea you get occasionally. Please take as prescribed. The Meclizine will help with the dizziness and the Ondansetron/Zofran will help with the nausea when it happens. If your symptoms do not get better, you will need follow up with ENT/Otolaryngology for further evaluation. Your primary care provider can refer you if needed. We stopped one of your blood pressure medications as it was making your BP too low. Please continue to stay as hydrated as possible. Decreasing coffee intake might help with that as coffee can be a diuretic and make you pee quite a bit. You were also seen by the Vascular surgeon for concerning blockages in your neck and abdomen and an abdominal aneurysm. They recommended close followup for continued monitoring after discharge. Your primary care provider will help with ensuring followup for that as well. On imaging, they also noted a lesion in the right parotid area that they wanted your primary care provider to follow up on. They will discuss this further with you at follow up. Please keep close follow up with your primary care provider after discharge. Please do not hesitate to come back to the emergency room if your symptoms worsen or return. It was a pleasure taking care of you while you were here. Total Time Total Time Spent Total Time Spent (In Minutes): > 30 minutes
== END 2023-11-12 15:21 | disposition home or self-care (01) | DRG 312 ==
LOC: ED 09:57 → INTOOBSV 14:01 → EDINP 14:01 → 2W 11-10 20:08